=== PATIENT | female | born 1990 | race Caucasian/White ===

== ENCOUNTER → 2016-11-09 | Outpatient (CLI) | payer BC ==
[~2016-11-09] MED LIST: ACET-1311 PO; OXYC1TAB3 PO; PEMB1INJ IV; POTA20TA13 PO; RXC5 PO
--- NOTE | 2016-11-09 16:17 | DIAGNOSTIC IMAGING REPORT ---
CT ABD/PELVIS IV AND ORAL CONT CLINICAL HISTORY: Adrenocortical carcinoma COMPARISON STUDY: 09/06/2016 TECHNIQUE: Following the IV administration of 80 mL of Optiray-320, CT scan of the abdomen and pelvis was performed from the lung bases to the proximal femurs. Images are reviewed in the axial, sagittal, and coronal planes. IV contrast was administered without complication. CT DOSE: FINDINGS: Lower chest: There is a new 5.6 mm left lower lobe pulmonary nodule. There is a 2.5 mm right lower lobe pulmonary nodule. Liver: No focal hepatic masses are visualized Gallbladder: Surgically absent Spleen: Normal in size and attenuation. Pancreas: Unremarkable. Adrenal glands: The right adrenal gland appears surgically absent. No left adrenal masses are visualized. Kidneys: The patient is status post an interval right nephrectomy. There is soft tissue at the resection bed, consistent with either postsurgical change or residual tumor. Follow-up will be necessary. Bowel: There are no transition zones indicate bowel obstruction. The appendix appears normal. There is no acute diverticulitis. Peritoneum: There is trace free pelvic fluid. There is no free air. Vasculature: The abdominal aorta is normal in course and caliber. Adenopathy: None. Pelvic viscera: There are bilateral ovarian follicles likely functional. Skeletal structures: No destructive osseous lesions are seen. IMPRESSION: 1. Interval development of small bilateral pulmonary nodules. Metastatic disease is the diagnosis of exclusion 2. Interval right nephrectomy with resection of the retroperitoneal tumor recurrence. There is soft tissue at the level of the tumor resection, consistent with either postsurgical change or recurrent/residual neoplasm. Close follow-up or a PET CT scan will be necessary to differentiate these 2 possibilities. Electronically signed by: Taras Armstrong M.D. 11/09/2016 4:15 PM Dictated Date/Time: 11/09/2016 4:01 PM
--- NOTE | 2016-11-09 20:56 | DIAGNOSTIC IMAGING REPORT ---
CT OF THE CHEST WITH IV CONTRAST CLINICAL HISTORY: Adrenocortical carcinoma. COMPARISON STUDY: Chest CT June 20, 2016. TECHNIQUE: Following IV administration of 80 mL of Optiray-320, helical axial images of the chest were obtained. Images were viewed in the axial, sagittal and coronal planes. IV contrast was administered without complication. CT DOSE: 566.19 mGy.cm FINDINGS: No enlarged axillary, mediastinal or hilar lymph nodes are present. A left sided [id number] is in place. The size of the heart is normal. There is no pericardial effusion. No consolidation is identified. The central airways are patent. Several pulmonary nodules are new since CT of June 20, 2016 and include a 5 mm left lower lobe nodule shown image 48 of 65, a 3 mm right lower lobe nodule shown image 42 and a 3 mm left lower lobe nodule shown image 33. A few additional smaller nodules are also new since prior exam. No suspicious osseous lesions are present. Post surgical findings within the right upper quadrant status post nephrectomy are present. There is soft tissue within the operative bed which is better depicted on the abdominal CT. IMPRESSION: 1. Interval development of several small pulmonary nodules since chest CT of June 20, 2016 which are suspicious for pulmonary metastases. 2. No thoracic lymphadenopathy. Electronically signed by: Carlo Alcazar M.D. 11/09/2016 8:54 PM Dictated Date/Time: 11/09/2016 4:06 PM
== END | disposition home or self-care (01) ==
LOC: C.CTS 15:36
PROVIDERS: ATTEND Internal Medicine Hematology & Oncology
DX: C74.01 Malignant neoplasm of cortex of right adrenal gland (principal)

== ENCOUNTER → 2017-01-14 | Outpatient (CLI) | payer BC ==
[~2017-01-14] MED LIST changes: +OPTIRAY 320 IV PRN
--- NOTE | 2017-01-14 13:27 | DIAGNOSTIC IMAGING REPORT ---
CT SCAN OF THE CHEST WITH IV CONTRAST CLINICAL HISTORY: Adrenocortical carcinoma. COMPARISON STUDY: Chest CT scans dated 11/09/2016 and 03/26/2016. Abdominal CT dated 11/09/2016. TECHNIQUE: Following the IV administration of 65 cc of Optiray 320, CT scan of the thorax was performed from the thoracic inlet to the upper abdomen. Images are reviewed in the axial, sagittal, and coronal planes. IV contrast was administered without complication. CT DOSE: 207.39 mGy.cm FINDINGS: Thyroid: Imaged portions of the thyroid gland are normal in size and attenuation. Thoracic aorta: The thoracic aorta is normal in caliber and demonstrates standard 3-vessel arch anatomy. No dissection is seen. A left subclavian central venous infusion port is in place. Pulmonary vasculature: The pulmonary trunk is normal in caliber. There are no filling defects identified in the central pulmonary vessels to indicate pulmonary embolus. Note that this examination was not protocoled for evaluation of the pulmonary arteries. Heart: The heart is normal in size and configuration, and without pericardial effusion. Lungs and pleural spaces: There is no airspace consolidation or pleural effusion. The trachea and central airways are clear. There are numerous (at least 15) pulmonary nodules. These have significantly increased in both size and number from 11/09/2016. The appearance is consistent with multifocal pulmonary metastatic disease. The largest lesion is seen at the left lung base on image #264 and measures 11 mm (previously measured 4 mm). Mediastinum: There is no mediastinal lymphadenopathy. Dunia: Clear. Axillae: There is no axillary lymphadenopathy. Upper abdomen: There is a new large mass lesion identified in the right lobe of the liver adjacent to the IVC, best seen on axial image #293. This measures 4.4 cm and is consistent with progression of disease. An additional smaller 1.8 cm lesion is seen immediately adjacent on image #274. This is also new from previous. Postoperative changes are partially seen along the right posterior margin of liver. The right kidney in the right adrenal gland are surgically absent. The left adrenal gland is normal as visualized. Skeletal structures: No lytic or blastic bony lesions are seen. IMPRESSION: 1. There has been overall progression of metastatic disease with an increase in both size and number of numerous pulmonary metastases as compared to the 11/09/2016 examination. 2. There are 2 new hepatic metastases identified in the right lobe measuring up to 4.4 cm. 3. There is no airspace consolidation or pleural effusion. 4. Additional findings as above. Electronically signed by: Liborio Joseph M.D. 01/14/2017 1:26 PM Dictated Date/Time: 01/14/2017 1:17 PM
== END | disposition home or self-care (01) ==
LOC: C.CTS 12:57
PROVIDERS: ATTEND Nurse Practitioner
DX: C74.01 Malignant neoplasm of cortex of right adrenal gland (principal); R07.9 Chest pain, unspecified; M54.9 Dorsalgia, unspecified; R91.8 Other nonspecific abnormal finding of lung field; C78.00 Secondary malignant neoplasm of unspecified lung; C78.7 Secondary malignant neoplasm of liver and intrahepatic bile duct

== ENCOUNTER → 2017-02-22 | Outpatient (CLI) | payer BC ==
[~2017-02-22] MED LIST changes: +DOCU-94 PO; +DRGTP25 TD; +ENOX120I SQ; +FNTTP25 TD; +FURO-85 PO; +POLY335019 PO; +SPIR25TA PO; +ZOLP5TAB PO
--- NOTE | 2017-02-22 16:15 | DIAGNOSTIC IMAGING REPORT ---
CHEST CT WITH CONTRAST CT DOSE: HISTORY: Adrenal cancer TECHNIQUE: Multiaxial CT images of the chest were performed following the intravenous administration of contrast. COMPARISON: Chest CT 01/14/2017. FINDINGS: The central airways are patent. No pleural effusions. No pneumothorax. Interval increase in size in the multiple bilateral pulmonary nodules. Dominant nodule within the left lower lobe measures 12 mm, previously measuring 9 mm. Slightly progressed in the anterior mediastinal nodularity. This now measures 11 mm in thickness, previously measuring 8 mm. This likely represents progressive metastatic disease. Hepatic metastatic lesions have also increased in size. The central pulmonary arteries are patent. Left subclavian Port-A-Cath terminates in the distal SVC. IMPRESSION: Interval progression of metastatic disease within the chest and abdomen as described above. Electronically signed by: Cruz Padilla M.D. 02/22/2017 4:13 PM Dictated Date/Time: 02/22/2017 4:02 PM
--- NOTE | 2017-02-22 16:22 | DIAGNOSTIC IMAGING REPORT ---
ABDOMEN AND PELVIS CT WITH IV AND ORAL CONTRAST CT DOSE: 600.35 mGy.cm HISTORY: Adrenal carcinoma ADRENAL CA. TECHNIQUE: Multiaxial CT images of the abdomen and pelvis were performed following the use of intravenous and oral contrast. COMPARISON STUDY: 11/09/2016 FINDINGS: Progressive basilar parenchymal nodularity. At the right base there are 3 pleural-based nodules maximum dimension is 6.6 mm. Left base shows somewhat progressive nodularity compared to prior. Several nodules are present measuring from 4 to 7 mm. Progressive hepatic metastatic disease. Several nodular present largest of which measures 7.3 x 7.2 cm. Right adrenal gland has been resected. There may be localized soft tissue within the adrenal bed as residual. Left kidney is unremarkable. Left adrenal shows no evidence for enlargement. Left kidney enhances uniformly. Spleen is unremarkable. The bowel pattern is considered nonobstructive. Findings of moderate wall thickening of loops of proximal to mid sigmoid and lesser extent small bowel left lower quadrant. IMPRESSION: 1. Progressive metastatic disease involving basilar pulmonary nodularity, liver, and possibly bowel. 2. No evidence for an obstructive bowel pattern. Electronically signed by: Bao Ríos M.D. 02/22/2017 4:20 PM Dictated Date/Time: 02/22/2017 4:08 PM
== END | disposition home or self-care (01) ==
LOC: C.CTS 14:28
PROVIDERS: ATTEND Internal Medicine Hematology & Oncology
DX: C74.01 Malignant neoplasm of cortex of right adrenal gland (principal)

== ENCOUNTER → 2017-03-12 | Outpatient (CLI) | payer BC ==
[~2017-03-12] MED LIST changes: -OPTIRAY 320 IV PRN
--- NOTE | 2017-03-12 12:33 | DIAGNOSTIC IMAGING REPORT ---
Study: Cardiac blood pool imaging TECHNIQUE: This examination is acquired following the administration of 29.5 mCi of technetium 99m UltraTag. Ejection fraction evaluation was performed. FINDINGS: Ejection fraction is calculated at 75%. Wall motion contractility is unremarkable. There is no paradoxical wall motion. IMPRESSION: Normal study. Ejection fraction 75%. No wall motion abnormalities Electronically signed by: Bao Ríos M.D. 03/12/2017 12:31 PM Dictated Date/Time: 03/12/2017 12:28 PM
== END | disposition home or self-care (01) ==
LOC: C.NUCL 10:04
PROVIDERS: ATTEND Nurse Practitioner Family
DX: C74.01 Malignant neoplasm of cortex of right adrenal gland (principal)

== ENCOUNTER 2017-05-06 13:12 | Observation (INO) | payer BC ==
[~2017-05-06] VITALS: Ht 167.6 cm; Wt 80.4 kg
[~2017-05-06 13:12] MED LIST changes: -DOCU-94 PO; -DRGTP25 TD; -ENOX120I SQ; -FNTTP25 TD; -FURO-85 PO; -OXYC1TAB3 PO; -PEMB1INJ IV; -POLY335019 PO; -POTA20TA13 PO; -SPIR25TA PO; -ZOLP5TAB PO
[2017-05-06] MEDS ORDERED: ONDANSETRON INJ 2 MG/ML 2 ML VIAL IV STA (14:37)
[2017-05-06] MEDS ORDERED: SODIUM CHLORIDE 0.9% 1000ML 1,000 ML IV STA (14:37)
[2017-05-06] MEDS ORDERED: FENTANYL CITRATE INJ 50 MCG/1 ML 2 ML VIAL IV STA (14:37)
[2017-05-06] MEDS ORDERED: DiphenhydrAMINE HCL 50 MG/ML VIAL IV STA (14:58)
[2017-05-06] MEDS ORDERED: PROCHLORPERAZINE 5 MG/ML 2 ML VIAL IV STA (14:58)
--- NOTE | 2017-05-06 15:53 | DIAGNOSTIC IMAGING REPORT ---
HEAD CT NONCONTRAST CT DOSE: 638.56 mGycm HISTORY: Mental status change MCCORMACK, Vomiting, stage 4 adrenal CA TECHNIQUE: Multiaxial CT images of the head were performed without the use of intravenous contrast. Comparison: None. Findings: The paranasal sinuses and mastoid air cells are clear. The calvarium and skull base are intact. The ventricles and sulci are within normal limits. There is no mass, hematoma, midline shift, or acute infarct. Impression: No acute intracranial abnormality. Electronically signed by: Bao Ríos M.D. 05/06/2017 3:52 PM Dictated Date/Time: 05/06/2017 3:52 PM
[2017-05-06 16:06] LABS: URINE APPEARANCE CLEAR (CLEAR); URINE BILIRUBIN NEG (NEG); URINE COLOR YELLOW; URINE EPITHELIAL CELL AUTO >30 /lpf (0-5); URINE NITRITE NEG (NEG); URINE SPECIFIC GRAVITY 1.022 (1.000-1.030); UROBILINOGEN NEG (NEG); ZZUR CULT IF INDIC CLEAN CATCH NO
--- NOTE | 2017-05-06 16:07 | EMERGENCY ROOM VISIT NOTE ---
History Report prepared by Doug: Freddy Carter Under the Supervision of: Dr. Nickie Spencer M.D. First contact with patient: 14:37 Chief Complaint: HEADACHE Stated Complaint: MCCORMACK, N,V,D, History of Present Illness The patient is a 26 year old female who presents to the Emergency Room with complaints of a constant headache since last week. She rates her discomfort as a 5/10 in severity. She reports that she went to the [place] a week ago and started to feel a headache and swelling to her legs bilaterally. The patient reports that she has felt bruising in her feet and pain in her thighs since. She states that she has been experiencing nausea, vomiting, and diarrhea today. The patient states that she has been going through chemotherapy for a year for her stage four [address]. Singh and her third cycle is this week. She also states that she sees a specialist in [place].The patient states that she is worried about an adrenal crisis because the doctor is worried that they took off her steroids too quick. She reports that she was doing a clinical trial and the medication she was given is hard on her adrenal system. She states that they took her off steroids two months ago and denies being on steroids or the clinical trial at the moment. The patient admits that she typically takes Zofran for nausea and states that it helps alleviate her symptom. She reports that she hasn't taken any recently because it causes constipation. The patient denies taking medication for pain, fever, being sensitive to light, any previous similar headaches, dysphasia, confusion, weakness in one leg and arm, and facial droop. Source of History: patient Onset: a week ago Position: head Symptom Intensity: 5/10 Timing: constant Associated Symptoms: + nausea, + vomiting, + diarrhea, No fevers, No weakness Review of Systems See HPI for pertinent positives & negatives. A total of 10 systems reviewed and were otherwise negative. Past Medical & Surgical Medical Problems: (1) Adrenal carcinoma (2) Adrenal mass, right (3) Heart murmur (4) Right flank pain (5) Symptomatic anemia (6) [place] Teeth Removal Family History Diabetes mellitus FH: heart disease Social History Smoking Status: Never Smoker Alcohol Use: occasionally Drug Use: none Marital Status: , in relationship Housing Status: lives with family Occupation Status: employed Current/Historical Medications No Active Prescriptions or Reported Meds Allergies Coded Allergies: Ibuprofen (Verified Allergy, Intermediate, LIPS SWELL, HIVES, 09/06/16) Physical Exam Vital Signs Date Time Temp Pulse Resp B/P (MAP) Pulse Ox O2 Delivery O2 Flow Rate FiO2 05/06/17 18:20 93 16 97 Room Air 05/06/17 16:52 78 16 126/85 97 Room Air 05/06/17 15:41 72 18 98 Room Air 05/06/17 15:28 84 05/06/17 14:10 81 16 130/87 99 Room Air 05/06/17 13:26 36.7 90 22 132/89 99 Room Air Physical Exam Vital signs reviewed. General: No Meningeal signs. ill-appearing 26 year old female, in no significant distress. HEENT: No scleral icterus, PERRLA, neck supple. Atraumatic. Cardiovascular: Regular rate and rhythm, no extra sounds. Pulmonary: Clear to auscultation bilaterally, normal work of breathing. Abdomen: Soft, nontender, nondistended, positive bowel sounds. Musculoskeletal: Atraumatic, no peripheral edema. Neurologic: Patient awake alert and oriented x 3, full strength in all 4 extremities. Cranial nerves 2 through 12 grossly intact. Rectal: small external hemorrhoid, heme neg stool Skin: Warm, dry, no rash Medical Decision & Procedures ER Provider Diagnostic Interpretation: Radiology results as stated below per my review and radiologist interpretation: HEAD CT NONCONTRAST CT DOSE: 638.56 mGycm HISTORY: Mental status change MCCORMACK, Vomiting, stage 4 adrenal CA TECHNIQUE: Multiaxial CT images of the head were performed without the use of intravenous contrast. Comparison: None. Findings: The paranasal sinuses and mastoid air cells are clear. The calvarium and skull base are intact. The ventricles and sulci are within normal limits. There is no mass, hematoma, midline shift, or acute infarct. Impression: No acute intracranial abnormality. Electronically signed by: Bao Ríos M.D. 05/06/2017 3:52 PM Dictated Date/Time: 05/06/2017 3:52 PM BILATERAL LOWER EXTREMITY VENOUS DOPPLER CLINICAL HISTORY: Bilateral lower extremity edema. COMPARISON STUDY: No previous studies for comparison. TECHNIQUE: Sonography of the deep venous system of the bilateral lower extremities was performed. Compression and augmentation were evaluated. FINDINGS: The bilateral common femoral, superficial femoral and popliteal veins were compressible. Augmentation was normal. Flow was shown within the deep calf vessels. IMPRESSION: No evidence of deep venous thrombus within the bilateral lower extremities. Electronically signed by: Carlo Alcazar M.D. 05/06/2017 4:55 PM Dictated Date/Time: 05/06/2017 4:54 PM Laboratory Results Test 05/06/17 14:37 05/06/17 15:15 05/06/17 17:40 Urine Test NEG (NEG) Acanthocytes Urine Color YELLOW Urine Appearance CLEAR (CLEAR) Urine pH 7.0 (4.5-7.5) Urine Specific Steele 1.022 (1.000-1.030) Urine Protein 3+ (NEG) Urine Glucose (UA) NEG (NEG) Urine Ketones NEG (NEG) Urine Occult Blood 1+ (NEG) Urine Nitrite NEG (NEG) Urine Bilirubin NEG (NEG) Urine Urobilinogen NEG (NEG) Urine Leukocyte Esterase NEG (NEG) Urine WBC (Auto) 1-5 /hpf (0-5) Urine RBC (Auto) 0-4 /hpf (0-4) Urine Hyaline Casts (Auto) 5-10 /lpf (0-5) Urine Epithelial Cells (Auto) >30 /lpf (0-5) Urine Bacteria (Auto) NEG (NEG) Urine Renal Epithelial Cells 0-5 /lpf (0-5) Iron Level 28 mcg/dl (35-150) Total Iron Binding Capacity 322 mcg/dl (250-450) Transferrin 256 mg/dl (200-360) Transferrin % Saturation 8 % (15-50) Ferritin 17.9 ng/ml (8.0-388.0) Total Bilirubin 0.3 mg/dl (0.2-1) Direct Bilirubin < 0.1 mg/dl (0-0.2) Aspartate Amino Transf (AST/SGOT) 40 U/L (15-37) Alanine Aminotransferase (ALT/SGPT) 31 U/L (12-78) Alkaline Phosphatase 141 U/L (45-117) Total Protein 6.3 gm/dl (6.4-8.2) Albumin 2.7 gm/dl (3.4-5.0) Neutrophils % (Manual) 74.0 % Lymphocytes % (Manual) 21.7 % Monocytes % (Manual) 4.3 % Neutrophils # (Manual) 4.55 K/uL (1.4-6.5) Total Absolute Neutrophils 4.55 K/uL (1.4-6.5) Lymphocytes # (Manual) 1.33 K/uL (1.2-3.4) Total Absolute Lymphocytes 1.33 K/uL (1.2-3.4) Monocytes # (Manual) 0.26 K/uL (0.11-0.59) Microcytosis PRESENT Absolute Reticulocyte Count 0.07 10^6/uL (0.02-0.10) Percent Reticulocyte Count 2.2 % (0.5-2.0) Laboratory results per my review. Medications Administered Medications (Trade) Dose Ordered Sig/Karlos Route Start Time Stop Time Status Last Admin Dose Admin Sodium Chloride 1,000 ml @ 999 mls/hr Q1H1M STAT IV 05/06/17 14:37 05/06/17 15:37 DC 05/06/17 15:21 999 MLS/HR Fentanyl Citrate (Fentanyl Inj) 50 mcg NOW STAT IV 05/06/17 14:37 05/06/17 14:40 DC 05/06/17 15:19 50 MCG Prochlorperazine Edisylate (Compazine Inj) 10 mg NOW STAT IV 05/06/17 14:58 05/06/17 14:59 DC 05/06/17 15:20 10 MG Diphenhydramine HCl (Benadryl Inj) 25 mg NOW STAT IV 05/06/17 14:58 05/06/17 14:59 DC 05/06/17 15:18 25 MG Acetaminophen (Tylenol Tab) 650 mg Q4H PRN PO 05/06/17 18:45 06/05/17 18:44 05/07/17 08:18 650 MG ED Course 1450: Past medical records reviewed. The patient was evaluated in room A10. A complete history and physical examination was performed. 1437: Fentanyl Injection 50 mcg IV, Sodium Chloride 1000 ml @ 999 mls/hr IV. 1458: Benadryl Injection 25 mg IV, Compazine Injection 10 mg IV. 1739: I performed a rectal exam on the patient 1744: I discussed the patient's case with Dr. Muñoz, [facility] Hospitalist. He understands the patient's conditions and agrees to accept the patient. The patient will be further evaluated. I reevaluated the patient and she is resting comfortably. I discussed her results and treatment plan and she agrees to admission. The patient will be further evaluated. Medical Decision The differential diagnosis includes but is not limited to: Headache: Intracranial hemorrhage, intracranial mass, migraine headache, tension headache , sinusitis, meningitis, chemotherapeutic effect, dehydration Medication Reconciliation: I attest that I have personally reviewed the patient' s current medication list. Blood Pressure Screening: Patient was found to have normal blood pressure on screening and does not require follow-up. This pt was evaluated and appeared to be chronically ill, but in no distress. PE is significant for BLE edema. Lab work reveals a significant anemia. This was ordered to be repeated, type and cross for 2 units to HOLD. Dopplers of BLE are negative for DVT. Head CT is negative. Pt did receive IVF, benadryl, fentanyl and compazine with some improvement in symptoms. Repeat H/H is improved without any transfusion. Pt case was d/w the hospitalist for further management. Pt and are aware of the plan and agree. Consults Time Called: 1743 Consulting Physician: Dr. Muñoz, [facility] Hospitalist Returned Call: [phone] I discussed the patient's case with Dr. Muñoz, [facility] Hospitalist. He understands the patient's conditions and agrees to accept the patient. The patient will be further evaluated. Impression Primary Impression: Headache Additional Impressions: Anemia Metastatic cancer Scribe Attestation The scribe's documentation has been prepared under my direction and personally reviewed by me in its entirety. I confirm that the note above accurately reflects all work, treatment, procedures, and medical decision making performed by me. Departure Information Dispostion Being Evaluated By Hospitalist (Dr. Muñoz) Prescriptions No Active Prescriptions or Reported Meds Referrals RV. Mcmahon MD (PCP) Patient Instructions My [facility] Problem Qualifiers
[2017-05-06 16:09] LABS: MANUAL MICROSCOPIC REQUIRED? NO; REVIEW REQ? YES
[2017-05-06 16:28] LABS: ALT/SGPT 31 U/L (12-78); AST/SGOT 40 U/L (15-37); BLOOD UREA NITROGEN 11 mg/dl (7-18); BUN/CREATININE RATIO 11.9 (10-20); CALCIUM 8.5 mg/dl (8.5-10.1); CARBON DIOXIDE 26 mmol/L (21-32); CHLORIDE 109 mmol/L (98-107); CREATININE 0.96 mg/dl (0.60-1.20); GLUCOSE 81 mg/dl (70-99); POTASSIUM 3.3 mmol/L (3.5-5.1); SODIUM 143 mmol/L (136-145)
[2017-05-06 16:31] LABS: ALKALINE PHOSPHATASE 141 U/L (45-117)
[2017-05-06 16:40] LABS: COMPLETE YES
--- NOTE | 2017-05-06 16:56 | DIAGNOSTIC IMAGING REPORT ---
BILATERAL LOWER EXTREMITY VENOUS DOPPLER CLINICAL HISTORY: Bilateral lower extremity edema. COMPARISON STUDY: No previous studies for comparison. TECHNIQUE: Sonography of the deep venous system of the bilateral lower extremities was performed. Compression and augmentation were evaluated. FINDINGS: The bilateral common femoral, superficial femoral and popliteal veins were compressible. Augmentation was normal. Flow was shown within the deep calf vessels. IMPRESSION: No evidence of deep venous thrombus within the bilateral lower extremities. Electronically signed by: Carlo Alcazar M.D. 05/06/2017 4:55 PM Dictated Date/Time: 05/06/2017 4:54 PM
[2017-05-06 18:25] LABS: HEMATOCRIT 25.5 % (37-47)
[2017-05-06] MEDS ORDERED: ACETAMINOPHEN 325 MG TAB PO PRN (18:45)
[2017-05-06] MEDS ORDERED: ALUMINUM/MAGNESIUM/SIMETH (MAALOX MAX) 30 ML UDC PO PRN (18:45)
[2017-05-06] MEDS ORDERED: MAGNESIUM HYDROXIDE SUSP 30 ML UDC PO PRN (18:45)
[2017-05-06] MEDS ORDERED: ONDANSETRON INJ 2 MG/ML 2 ML VIAL IV PRN (18:45)
[2017-05-06] MEDS ORDERED: POLYETHYLENE (MIRALAX) 17 GM PACK PO PRN (18:45)
[2017-05-06] MEDS ORDERED: IV FLUIDS COMPLETED PRN (19:15)
[2017-05-06] MEDS ORDERED: POTASSIUM CHLORIDE 10 MEQ TABCR PO SCH (19:30)
[2017-05-06 19:32] LABS: FERRITIN 17.9 ng/ml (8.0-388.0)
--- NOTE | 2017-05-06 19:32 | History and Physical ---
History & Physical Date & Time of Service: May 06, 2017 at 19:04 Chief Complaint: Mccormack,N,V,D Primary Care Physician: RV. 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 The patient states she has been having intermittent, sharp headaches over the last week, which is unusual for her. She rates this discomfort as a 5/10. She has also noted bilateral leg swelling over the last week, although this has been improving the last few days and seems to have resolved today. The patient states she has felt nauseous for the last 3 days, and this morning she developed vomiting and diarrhea. She denies any hematemesis, hematochezia and melena. She does complain of feeling weak and fatigued, and has noticed more palpitations than normal. The patient has been undergoing chemotherapy with Dr. Jenkins for the last year, and her next dose is due this week. The patient denies fevers, chills, sweats, chest pain, claudication, cough, wheezing, shortness of breath, abdominal pain, dysuria, hematuria, urinary retention, paralysis, numbness and tingling. Past Medical/Surgical History Medical Problems: (1) Adrenal carcinoma Status: Chronic (2) Adrenal mass, right Status: Chronic (3) Heart murmur Status: Resolved (4) Prosser Teeth Removal Status: Resolved S/p right nephrectomy September 18 2016 Anxiety Family History Breast cancer Diabetes mellitus FH: heart disease Social History Smoking Status: Never Smoker Smokeless Tobacco Use: No Alcohol Use: none Drug Use: none Marital Status: , in relationship Housing status: lives with family Occupational Status: employed Immunizations History of Influenza Vaccine: Yes Influenza Vaccine Date: Oct 27, 2015 History of Tetanus Vaccine?: Yes Tetanus Immunization Date: Jan 25, 2013 History of Pneumococcal: No History of Hepatitis B Vaccine: No Allergies Coded Allergies: Ibuprofen (Verified Allergy, Intermediate, LIPS SWELL, HIVES, 09/06/16) Home Medications No Active Prescriptions or Reported Meds Review of Systems Constitutional: + weakness, + fatigue, No fever, No chills, No sweats Eyes: No worsening of vision, No eye pain, No diplopia ENT: No hearing loss, No sore throat, No trouble swallowing Respiratory: No cough, No wheezing, No shortness of breath Cardiovascular: + palpitations, No chest pain, No claudication Abdomen: + nausea, + vomiting, + diarrhea, No pain, No GI bleeding Musculoskeletal: + swelling (lower leg edema, resolved), No joint pain, No muscle pain, No calf pain Genitourinary - Female: No dysuria, No urinary retention, No hematuria Neurologic: No paralysis, No weakness, No numbness/tingling Integumentary: No rash, No itch, No color change Physical Exam Vital Signs Date Time Temp Pulse Resp B/P (MAP) Pulse Ox O2 Delivery O2 Flow Rate FiO2 05/06/17 18:20 93 16 97 Room Air 05/06/17 16:52 78 16 126/85 97 Room Air 05/06/17 15:41 72 18 98 Room Air 05/06/17 15:28 84 05/06/17 14:10 81 16 130/87 99 Room Air 05/06/17 13:26 36.7 90 22 132/89 99 Room Air General Appearance: WD/WN, no apparent distress Head: normocephalic, atraumatic Eyes: normal inspection, PERRL, EOMI ENT: normal ENT inspection, hearing grossly normal, pharynx normal Neck: supple, no JVD, trachea midline Respiratory/Chest: lungs clear, normal breath sounds, no respiratory distress Cardiovascular: regular rate, rhythm, no gallop, no murmur Abdomen/GI: normal bowel sounds, non tender, soft Extremities/Musculoskelatal: normal inspection, no calf tenderness, no pedal edema Neurologic/Psych: alert, normal mood/affect, oriented x 3 Skin: normal color, warm/dry, no rash Diagnostics Laboratory Results Results Past 24 Hours Test 05/06/17 14:37 05/06/17 15:15 05/06/17 17:40 05/06/17 18:43 Range/Units Urine Test NEG NEG White Blood Count 8.09 4.8-10.8 K/uL Red Blood Count 2.01 4.2-5.4 M/uL Hemoglobin 5.1 8.2 12.0-16.0 g/dL Hematocrit 15.7 25.5 37-47 % Mean Corpuscular Volume 78.1 80-100 fL Mean Corpuscular Hemoglobin 25.4 25-34 pg Mean Corpuscular Hemoglobin Concent 32.5 32-36 g/dl Platelet Count 356 130-400 K/uL Mean Platelet Volume 8.5 7.4-10.4 fL Neutrophils (%) (Auto) 63.3 % Lymphocytes (%) (Auto) 22.4 % Monocytes (%) (Auto) 13.0 % Eosinophils (%) (Auto) 0.9 % Basophils (%) (Auto) 0.2 % Neutrophils # (Auto) 5.12 1.4-6.5 K/uL Lymphocytes # (Auto) 1.81 1.2-3.4 K/uL Monocytes # (Auto) 1.05 0.11-0.59 K/uL Eosinophils # (Auto) 0.07 0-0.5 K/uL Basophils # (Auto) 0.02 0-0.2 K/uL RDW Standard Deviation 59.4 36.4-46.3 fL RDW Coefficient of Variation 20.5 11.5-14.5 % Immature Granulocyte % (Auto) 0.2 % Immature Granulocyte # (Auto) 0.02 0.00-0.02 K/uL Ovalocytes 1+ Acanthocytes 1+ Urine Color YELLOW Urine Appearance CLEAR CLEAR Urine pH 7.0 4.5-7.5 Urine Specific [place] 1.022 1.000-1.030 Urine Protein 3+ NEG Urine Glucose (UA) NEG NEG Urine Ketones NEG NEG Urine Occult Blood 1+ NEG Urine Nitrite NEG NEG Urine Bilirubin NEG NEG Urine Urobilinogen NEG NEG Urine Leukocyte Esterase NEG NEG Urine WBC (Auto) 1-5 0-5 /hpf Urine RBC (Auto) 0-4 0-4 /hpf Urine Hyaline Casts (Auto) 5-10 0-5 /lpf Urine Epithelial Cells (Auto) >30 0-5 /lpf Urine Bacteria (Auto) NEG NEG Urine Renal Epithelial Cells 0-5 0-5 /lpf Sodium Level 143 136-145 mmol/L Potassium Level 3.3 3.5-5.1 mmol/L Chloride Level 109 98-107 mmol/L Carbon Dioxide Level 26 21-32 mmol/L Anion Gap 8.0 3-11 mmol/L Blood Urea Nitrogen 11 7-18 mg/dl Creatinine 0.96 0.60-1.20 mg/dl Est Creatinine Clear Calc Drug Dose 94.8 ml/min Estimated GFR () 94.6 Estimated GFR (Non- 81.6 BUN/Creatinine Ratio 11.9 10-20 Random Glucose 81 70-99 mg/dl Calcium Level 8.5 8.5-10.1 mg/dl Total Bilirubin 0.3 0.2-1 mg/dl Direct Bilirubin < 0.1 0-0.2 mg/dl Aspartate Amino Transf (AST/SGOT) 40 15-37 U/L Alanine Aminotransferase (ALT/SGPT) 31 12-78 U/L Alkaline Phosphatase 141 45-117 U/L Total Protein 6.3 6.4-8.2 gm/dl Albumin 2.7 3.4-5.0 gm/dl Transferrin % Saturation 15-50 % Diagnostic Radiology Reviewed the following studies and agree with interpretation as follows: Patient Name: ROXI KNAPP Unit Number: [id number] Dictated: 05/06/171551 Transcribed: 05/06/171551 MS Printed Date/Time: [~ rep prt dt]/[~ rep prt tm] [~ rep ct labl] - [~ rep ct ivnm] [facility] [place] [address] Dictated: 05/06/171551 Transcribed: 05/06/17 155 MS Printed Date/Time: [~ rep prt dt]/[~ rep prt tm] [~ rep ct labl] - [~ rep ct ivnm] Patient: ROXI KNAPP Address1: [address] [place] [address] Rec: [id number] Address2: Acct ID: [id number] [facility] Zip: [place] [address] Date: 1990 Sex: F Room/Bed: Ref Phy: RV. Mcmahon MD SC: PEEWEE Att Phy: Report #: [id number] Vikki Phy: RV. Mcmahon MD Test: HWO Admit Phy: Data Security Administrator: ELAN Interpreting Phy: Bao Ríos M.D. Diagnosis: MCCORMACK,N,V,D Ordering Phy: Nickie Spencer M.D. Service Date: 05/06/17 Admit Date: 05/06/17 MNE: [id number] CONF: DICTATED BY: Bao Ríos M.D.]] CC: RV. Mcmahon MD Flickinger, Bridget B., M.D. Endcc: [~ rep ct add3]] HEAD CT NONCONTRAST CT DOSE: 638.56 mGycm HISTORY: Mental status change MCCORMACK, Vomiting, stage 4 adrenal CA TECHNIQUE: Multiaxial CT images of the head were performed without the use of intravenous contrast. Comparison: None. Findings: The paranasal sinuses and mastoid air cells are clear. The calvarium and skull base are intact. The ventricles and sulci are within normal limits. There is no mass, hematoma, midline shift, or acute infarct. Impression: No acute intracranial abnormality. Electronically signed by: Bao Ríos M.D. 05/06/2017 3:52 PM Dictated Date/Time: 05/06/2017 3:52 PM The status of this report is Signed. Draft = Not yet reviewed or approved by Radiologist. Signed = Reviewed and approved by Radiologist. <AttendingPhy></AttendingPhy> <FamilyPhy>RV. Mcmahon MD</ FamilyPhy> <PrimaryPhy>RV. Mcmahon MD</PrimaryPhy> <UnitNumber> [id number]</UnitNumber> <VisitNumber>[id number]</VisitNumber> <PatientName> ROXI KNAPP</PatientName> <DateOfBirth>1990</DateOfBirth> <Location> C.[facility]</Location> <ServiceDate>05/06/17</ServiceDate> <MNE>ESINDI</MNE> < OrderingPhy>Nickie Spencer M.D.</OrderingPhy> <OrderingPhyMNE>f rep ord dr dolan</OrderingPhyMNE> <DictatingPhyMNE>f rep dict dr dolan</DictatingPhyMNE> < CCListMNE>f rep ct mne</CCListMNE> <AdmittingPhyMNE>f pt admit dr dolan</ AdmittingPhyMNE> <AttendingPhyMNE>f pt attend dr dolan</AttendingPhyMNE> <ConsultingPhyMNE>f pt consult dr dolan</ConsultingPhyMNE> <FamilyPhyMNE>f pt fam dr dolan</FamilyPhyMNE> <OtherPhyMNE>f pt other dr dolan</OtherPhyMNE> < PrimaryPhyMNE>f pt prim care dr dolan</PrimaryPhyMNE> <ReferringPhyMNE>f pt referring dr dolan</ReferringPhyMNE> Patient Name: ROXI KNAPP Unit Number: [id number] Dictated: 05/06/171653 Transcribed: 05/06/171653 Printed Date/Time: [~ rep prt dt]/[~ rep prt tm] [~ rep ct labl] - [~ rep ct ivnm] [facility] [place] [address] Dictated: 05/06/171653 Transcribed: 05/06/171653 Printed Date/Time: [~ rep prt dt]/[~ rep prt tm] [~ rep ct labl] - [~ rep ct ivnm] Patient: ROXI KNAPP Address1: [address] [place] [address] Rec: [id number] Address2: Acct ID: [id number] [facility] Zip: [place] [address] Date: 1990 Sex: F Room/Bed: Ref Phy: RV. Mcmahon MD SC: PEEWEE Att Phy: Report #: [id number] Vikki Phy: RV. Mcmahon MD Test: VDLEB Admit Phy: Data Security Administrator: MIRANDA Interpreting Phy: Carlo Alcazar MD Diagnosis: MCCORMACK,N,V,D Ordering Phy: Nickie Spencer M.D. Service Date: 05/06/17 Admit Date: 05/06/17 MNE: [id number] CONF: DICTATED BY: Carlo Alcazar MD]] CC: RV. Mcmahon MD Flickinger, Bridget B., M.D. Endcc: [~ rep ct add3]] BILATERAL LOWER EXTREMITY VENOUS DOPPLER CLINICAL HISTORY: Bilateral lower extremity edema. COMPARISON STUDY: No previous studies for comparison. TECHNIQUE: Sonography of the deep venous system of the bilateral lower extremities was performed. Compression and augmentation were evaluated. FINDINGS: The bilateral common femoral, superficial femoral and popliteal veins were compressible. Augmentation was normal. Flow was shown within the deep calf vessels. IMPRESSION: No evidence of deep venous thrombus within the bilateral lower extremities. Electronically signed by: Carlo Alcazar M.D. 05/06/2017 4:55 PM Dictated Date/Time: 05/06/2017 4:54 PM The status of this report is Signed. Draft = Not yet reviewed or approved by Radiologist. Signed = Reviewed and approved by Radiologist. <AttendingPhy></AttendingPhy> <FamilyPhy>RV. Mcmahon MD</ FamilyPhy> <PrimaryPhy>RV. Mcmahon MD</PrimaryPhy> <UnitNumber> [id number]</UnitNumber> <VisitNumber>[id number]</VisitNumber> <PatientName> ROXI KNAPP</PatientName> <DateOfBirth>1990</DateOfBirth> <Location> [facility]</Location> <ServiceDate>05/06/17</ServiceDate> <MNE>ESINDI</MNE> < OrderingPhy>Nickie Spencer M.D.</OrderingPhy> <OrderingPhyMNE>f rep ord dr dolan</OrderingPhyMNE> <DictatingPhyMNE>f rep dict dr dolan</DictatingPhyMNE> < CCListMNE>f rep ct jevone</CCListMNE> <AdmittingPhyMNE>f pt admit dr dolan</ AdmittingPhyMNE> <AttendingPhyMNE>f pt attend dr dolan</AttendingPhyMNE> <ConsultingPhyMNE>f pt consult dr dolan</ConsultingPhyMNE> <FamilyPhyMNE>f pt fam dr dolan</FamilyPhyMNE> <OtherPhyMNE>f pt other dr dolan</OtherPhyMNE> < PrimaryPhyMNE>f pt prim care dr dolan</PrimaryPhyMNE> <ReferringPhyMNE>f pt referring dr dolan</ReferringPhyMNE> Impression Assessment and Plan 26 y/o female with a history of 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 Patient afebrile, VSS upon arrival to ED. Initial hemoglobin was 5.1 , hematocrit 15.7, but repeat H&H 2.5 hours later showed hgb 8.2 and hematocrit 25.5. Head CT negative for acute disease. Bilateral lower extremity Doppler ultrasound negative for DVT. Symptomatic anemia -Admit to telemetry for observation -Check H&H q6h x 4 -Type and screen done in ED along with blood consent form -2 units initially ordered based off hgb of 5.1, but given repeat hgb was 8.2 before receiving blood, will hold off -Retic count and peripheral blood smear -Iron studies -Hold off GI consult for now given no obvious GI bleeding -EKG now -EKG q am and prn with chest pain Adrenal cancer stage IV s/p right nephrectomy (09/19)--progressive mets to liver and lungs per last CT scan February 2017 -Consult oncology as pt due for chemo. Pt follows with Dr. Jenkins GI prophylaxis -Maalox Max 15 mL PO q4h prn dyspepsia -Milk of magnesia 30 mL PO q6h prn constipation -Miralax 17 gm PO qd prn constipation -Zofran 4 mg IV q6h prn nausea DVT prophylaxis -Encourage ambulation -FABIANA terry and Carlos Code Status -Level I, FULL RESUSCITATION STATUS Attending Addendum: I have physically seen and examined this patient, have directed the physician assistants medical extremities, and agree with the H&P as noted above with the following exceptions: NONE The patient is awake, well-developed and adequately nourished, alert and oriented 3, normocephalic and atraumatic, lying in bed and in no acute distress. HEENT--PERRL, EOMI, mucous membranes and oropharynx dry. Neck--supple, no JVD or bruits, thyroid normal, trachea midline, no adenopathy. Heart--normal S1 and S2, no extra beats, no murmurs, rubs or gallops. Lungs--clear bilaterally with good air movement, no respiratory distress, no accessory muscle use. Abdomen--normal bowel sounds and soft, nontender and nondistended, no hernias or masses, no organomegaly. Extremities--no cyanosis, clubbing or edema. There are good distal pulses b/l. Dermatologic--normal skin turgor, normal color, warm and dry, no abnormal lymph nodes, no rash. Neurologic--cranial nerves II through XII grossly intact, motor and sensory examination normal. Rheumatologic--normal range of motion, nontender, muscles and joints. Psychiatric--normal affect. Assessment and Plan: 1. Symptomatic anemia--hemoglobin on arrival was 5.1, however, repeat for verification was 8.2. We will hold on transfusion at this time. Patient will be admitted to the telemetry unit for close monitoring. Check H&H every 6 hours. Order additional laboratories: Iron, TIBC, vitamin B-12, folic acid, reticulocyte count, peripheral smear. Order Hemoccults. Consult oncology Dr. Jenkins who manages her stage IV adrenal cancer. Level of Care Telemetry Resuscitation Status FULL RESUSCITATION VTE Prophylaxis VTE Risk Assessment Done? Y/N: Yes Risk Level: Moderate Given or contraindicated: T.E.D. Stockings, SCD's
[2017-05-06 20:00] VITALS: BP 121/81; PULSE 69; TEMP 36.6; O2SAT 99; Ht 167.6 cm; Wt 80.4 kg
[2017-05-06 23:31] VITALS: BP 113/73; PULSE 68; TEMP 36.8; O2SAT 96
[2017-05-06 23:33] LABS: HEMATOCRIT 25.2 % (37-47)
[2017-05-07] VITALS: O2SAT 99
[2017-05-07 03:55] VITALS: BP 113/68; PULSE 80; TEMP 36.9; O2SAT 94
[2017-05-07 04:00] VITALS: O2SAT 99
[2017-05-07 05:58] LABS: BASO % 0.6 %; BASO ABS # 0.03 K/uL (0-0.2); EOS % 0.8 %; HEMATOCRIT 26.2 % (37-47); IG% 0.4 %; LYMPH % 27.2 %; LYMPH ABS # 1.44 K/uL (1.2-3.4); MEAN CELL VOLUME 77.7 fL (80-100); MEAN CORPUSCULAR HEMOGLOBIN 24.9 pg (25-34); MEAN CORPUSCULAR HGB CONC 32.1 g/dl (32-36); MEAN PLATELET VOLUME 8.5 fL (7.4-10.4); MONO % 13.2 %; NEUT % 57.8 %; PLATELET COUNT 271 K/uL (130-400); RED BLOOD COUNT 3.37 M/uL (4.2-5.4)
[2017-05-07 06:33] LABS: BUN/CREATININE RATIO 9.5 (10-20); CREATININE 0.88 mg/dl (0.60-1.20); POTASSIUM 3.4 mmol/L (3.5-5.1)
[2017-05-07 06:45] LABS: ANISOCYTOSIS PRESENT; COMPLETE YES; OVALOCYTES 1+
[2017-05-07 07:38] VITALS: BP 119/73; PULSE 70; TEMP 36.9; O2SAT 97
[2017-05-07 11:21] LABS: COMPLETE YES; MEAN CELL VOLUME 78.2 fL (80-100); MEAN CORPUSCULAR HEMOGLOBIN 25.2 pg (25-34); MEAN CORPUSCULAR HGB CONC 32.2 g/dl (32-36); MEAN PLATELET VOLUME 8.4 fL (7.4-10.4); PLATELET COUNT 251 K/uL (130-400); RED BLOOD COUNT 3.26 M/uL (4.2-5.4); WHITE BLOOD COUNT 6.15 K/uL (4.8-10.8)
[2017-05-07 11:22] LABS: ANISOCYTOSIS PRESENT; LYMPH ABS # 1.33 K/uL (1.2-3.4); LYMPHOCYTE % 21.7 %; MICROCYTOSIS PRESENT; OVALOCYTES 1+
[2017-05-07 11:35] LABS: HEMATOCRIT 29.4 % (37-47)
[2017-05-07 12:10] VITALS: BP 116/76; PULSE 67; TEMP 36.7; O2SAT 97
--- NOTE | 2017-05-07 12:16 | Oncology Consultation ---
Oncology/Heme Consultation Date of Consultation: May 07, 2017. Attending Physician: Jaguar Muñoz M.D. Reason for Consultation: Anemia Metastatic adrenocortical carcinoma History of Present Illness Ms. Granado is a 26 year old woman with a history of metastatic adrenocortical carcinoma. She's progressed through multiple regimens and is currently receiving triple-agent chemotherapy (Adriamycin, Carboplatin, and Etoposide). Her last cycle was 04/09-04/11 and she is due for her next this week. She presented with nausea, vomiting, and diarrhea. She was noted to have a hemoglobin of 5.1 on admission. However, her hemoglobin on repeat was 8.2 and has trended up since without any transfusion. The admission CBC was subsequently retracted due to contamination. This morning, her hemoglobin was 9.3, which is close to her baseline. She denies any GI bleeding, hematuria, vaginal bleeding, epistaxis, or large bruising. She did have bilateral pedal edema that is resolving. A lower extremity doppler was negative. A CT head also revealed no acute changes. Past Medical/Surgical History Medical Problems: (1) Adrenal mass, right Status: Acute (2) Anemia Status: Acute (3) Back pain Status: Acute (4) Fecal retention Status: Acute (5) Headache Status: Acute (6) Metastatic cancer Status: Acute (7) Metastatic cancer Status: Acute (8) Right sided abdominal pain Status: Acute Family History Breast cancer Diabetes mellitus FH: heart disease Social History Smoking Status: Never Smoker Smokeless Tobacco Use: No Alcohol Use: none Drug Use: none Marital Status: , in relationship Housing Status: lives with family Occupation Status: employed Allergies Coded Allergies: Ibuprofen (Verified Allergy, Intermediate, LIPS SWELL, HIVES, 09/06/16) Home Medications No Active Prescriptions or Reported Meds Current Inpatient Medications Current Inpatient Medications Medications (Trade) Dose Ordered Sig/Karlos Route Start Time Stop Time Status Last Admin Dose Admin Acetaminophen (Tylenol Tab) 650 mg Q4H PRN PO 05/06/17 18:45 06/05/17 18:44 05/07/17 08:18 650 MG Al Hydrox/Mg Hydrox/Simethicone (Maalox Max Susp) 15 ml Q4H PRN PO 05/06/17 18:45 06/05/17 18:44 Magnesium Hydroxide (Milk Of Magnesia Susp) 30 ml Q12H PRN PO 05/06/17 18:45 06/05/17 18:44 Ondansetron HCl (Zofran Inj) 4 mg Q6H PRN IV 05/06/17 18:45 06/05/17 18:44 Polyethylene (Miralax Powder Packet) 17 gm DAILY PRN PO 05/06/17 18:45 06/05/17 18:44 Miscellaneous (Iv Fluids Completed) 1 ea PRN PRN N/A 05/06/17 19:15 05/06/18 19:14 Heparin Sodium (Porcine) (Heparin 100 Unit/ml 5ml Flush) 5 ml PRN PRN IV 05/07/17 02:30 06/06/17 02:29 05/07/17 05:12 5 ML Review of Systems Constitutional: + weakness, + fatigue, No fever, No chills ENT: No unusual epistaxis Respiratory: No cough, No shortness of breath, No hemoptysis Cardiovascular: + edema, No chest pain Abdomen: + nausea, + vomiting, + diarrhea, No pain Musculoskeletal: No joint pain, No muscle pain Genitourinary - Female: No dysuria, No hematuria, No vaginal bleeding Hematologic / Lymphatic: No abnormal bleeding/bruising Integumentary: No rash, No bleeding Physical Exam Date Time Temp Pulse Resp B/P (MAP) Pulse Ox O2 Delivery O2 Flow Rate FiO2 05/07/17 08:00 Room Air 05/07/17 07:38 36.9 70 16 119/73 (88) 97 Room Air 05/07/17 04:00 99 Room Air 05/07/17 03:55 36.9 80 18 113/68 (83) 94 Room Air 05/07/17 00:00 99 Room Air 05/07/17 00:00 99 Room Air 05/06/17 23:31 36.8 68 16 113/73 (86) 96 Room Air 05/06/17 20:00 36.6 69 18 121/81 05/06/17 20:00 36.6 69 20 121/81 99 Room Air 05/06/17 19:20 83 20 125/82 98 Room Air 05/06/17 18:20 93 16 97 Room Air 05/06/17 16:52 78 16 126/85 97 Room Air 05/06/17 15:41 72 18 98 Room Air 7/3/17 15:28 84 05/06/17 14:10 81 16 130/87 99 Room Air 05/06/17 13:26 36.7 90 22 132/89 99 Room Air General Appearance: WD/WN, no apparent distress ENT: pharynx normal Respiratory/Chest: lungs clear Cardiovascular: regular rate, rhythm, no murmur Abdomen/GI: soft, + tenderness (chronically over her RUQ) Extremities/Musculoskelatal: no pedal edema Neurologic/Psych: no motor/sensory deficits, alert, oriented x 3 Skin: warm/dry, no rash Laboratory Results Last 24 Hours Test 05/06/17 14:37 05/06/17 15:15 05/06/17 17:40 05/06/17 23:20 Urine Test NEG White Blood Count K/uL 6.15 K/uL Red Blood Count M/uL 3.26 M/uL Hemoglobin g/dL 8.2 g/dL 8.1 g/dL Hematocrit % 25.5 % 25.2 % Mean Corpuscular Volume fL 78.2 fL Mean Corpuscular Hemoglobin pg 25.2 pg Mean Corpuscular Hemoglobin Concent g/dl 32.2 g/dl Platelet Count K/uL 251 K/uL Mean Platelet Volume fL 8.4 fL Neutrophils (%) (Auto) % Lymphocytes (%) (Auto) % Monocytes (%) (Auto) % Eosinophils (%) (Auto) % Basophils (%) (Auto) % Neutrophils # (Auto) K/uL Lymphocytes # (Auto) K/uL Monocytes # (Auto) K/uL Eosinophils # (Auto) K/uL Basophils # (Auto) K/uL RDW Standard Deviation fL 58.4 fL RDW Coefficient of Variation % 20.4 % Immature Granulocyte % (Auto) % Immature Granulocyte # (Auto) K/uL Ovalocytes 1+ Acanthocytes Urine Color YELLOW Urine Appearance CLEAR Urine pH 7.0 Urine Specific [place] 1.022 Urine Protein 3+ Urine Glucose (UA) NEG Urine Ketones NEG Urine Occult Blood 1+ Urine Nitrite NEG Urine Bilirubin NEG Urine Urobilinogen NEG Urine Leukocyte Esterase NEG Urine WBC (Auto) 1-5 /hpf Urine RBC (Auto) 0-4 /hpf Urine Hyaline Casts (Auto) 5-10 /lpf Urine Epithelial Cells (Auto) >30 /lpf Urine Bacteria (Auto) NEG Urine Renal Epithelial Cells 0-5 /lpf Sodium Level 143 mmol/L Potassium Level 3.3 mmol/L Chloride Level 109 mmol/L Carbon Dioxide Level 26 mmol/L Anion Gap 8.0 mmol/L Blood Urea Nitrogen 11 mg/dl Creatinine 0.96 mg/dl Est Creatinine Clear Calc Drug Dose 94.8 ml/min Estimated GFR () 94.6 Estimated GFR (Non- 81.6 BUN/Creatinine Ratio 11.9 Random Glucose 81 mg/dl Calcium Level 8.5 mg/dl Iron Level 28 mcg/dl Total Iron Binding Capacity 322 mcg/dl Transferrin 256 mg/dl Transferrin % Saturation 8 % Ferritin 17.9 ng/ml Total Bilirubin 0.3 mg/dl Direct Bilirubin < 0.1 mg/dl Aspartate Amino Transf (AST/SGOT) 40 U/L Alanine Aminotransferase (ALT/SGPT) 31 U/L Alkaline Phosphatase 141 U/L Total Protein 6.3 gm/dl Albumin 2.7 gm/dl Neutrophils % (Manual) 74.0 % Lymphocytes % (Manual) 21.7 % Monocytes % (Manual) 4.3 % Neutrophils # (Manual) 4.55 K/uL Total Absolute Neutrophils 4.55 K/uL Lymphocytes # (Manual) 1.33 K/uL Total Absolute Lymphocytes 1.33 K/uL Monocytes # (Manual) 0.26 K/uL Anisocytosis PRESENT Microcytosis PRESENT Absolute Reticulocyte Count 0.07 10^6/uL Percent Reticulocyte Count 2.2 % Test 05/07/17 05:30 05/07/17 11:24 White Blood Count 5.30 K/uL Red Blood Count 3.37 M/uL Hemoglobin 8.4 g/dL 9.3 g/dL Hematocrit 26.2 % 29.4 % Mean Corpuscular Volume 77.7 fL Mean Corpuscular Hemoglobin 24.9 pg Mean Corpuscular Hemoglobin Concent 32.1 g/dl Platelet Count 271 K/uL Mean Platelet Volume 8.5 fL Neutrophils (%) (Auto) 57.8 % Lymphocytes (%) (Auto) 27.2 % Monocytes (%) (Auto) 13.2 % Eosinophils (%) (Auto) 0.8 % Basophils (%) (Auto) 0.6 % Neutrophils # (Auto) 3.07 K/uL Lymphocytes # (Auto) 1.44 K/uL Monocytes # (Auto) 0.70 K/uL Eosinophils # (Auto) 0.04 K/uL Basophils # (Auto) 0.03 K/uL RDW Standard Deviation 58.0 fL RDW Coefficient of Variation 20.1 % Immature Granulocyte % (Auto) 0.4 % Immature Granulocyte # (Auto) 0.02 K/uL Anisocytosis PRESENT Ovalocytes 1+ Sodium Level 143 mmol/L Potassium Level 3.4 mmol/L Chloride Level 110 mmol/L Carbon Dioxide Level 26 mmol/L Anion Gap 7.0 mmol/L Blood Urea Nitrogen 8 mg/dl Creatinine 0.88 mg/dl Est Creatinine Clear Calc Drug Dose 103.6 ml/min Estimated GFR () 105.1 Estimated GFR (Non- 90.7 BUN/Creatinine Ratio 9.5 Random Glucose 80 mg/dl Calcium Level 8.0 mg/dl Assessment & Plan Ms. Granado presented with GI complaints that have since resolved. They may have been related to her chemotherapy or else to some other issue, such as a transient viral illness. Regardless, her symptoms are better today. A CBC on admission was erroneously reported as showing severe anemia. However, her counts have been stable to improved since. Her baseline is the 9-10 range, which is consistent with her chemotherapy history and chronic disease. She does not need chemo in the hospital. She is scheduled to resume tomorrow. If she is discharged today, she can keep that appointment. Otherwise, we can reschedule for next week.
--- NOTE | 2017-05-07 13:44 | Discharge Instructions ---
Discharge Instructions Date of Service May 07, 2017. Admission Reason for Admission: Symptomatic Anemia Discharge Discharge Diagnosis / Problem: Symptomatic Anemia Discharge Goals Goal(s): Improve function Activity Recommendations Activity Limitations: resume your previous activity . Instructions / Follow-Up Instructions / Follow-Up Primary care physician in 1 week Current Hospital Diet Patient's current hospital diet: Regular Diet Discharge Diet Recommended Diet: Regular Diet Pending Studies Studies pending at discharge: no Laboratory Results Last Resulted CBC 05/07/17 05:30 Red Blood Count 3.37, Mean Corpuscular Volume 77.7, Mean Corpuscular Hemoglobin 24.9, Mean Corpuscular Hemoglobin Concent 32.1, Mean Platelet Volume 8.5, Neutrophils (%) (Auto) 57.8, Lymphocytes (%) (Auto) 27.2, Monocytes (%) (Auto) 13.2, Eosinophils (%) (Auto) 0.8, Basophils (%) (Auto) 0.6, Neutrophils # (Auto ) 3.07, Lymphocytes # (Auto) 1.44, Monocytes # (Auto) 0.70, Eosinophils # (Auto ) 0.04, Basophils # (Auto) 0.03 05/07/17 11:24 Last Resulted BMP 05/07/17 05:30 Medical Emergencies . Who to Call and When: Medical Emergencies: If at any time you feel your situation is an emergency, please call 911 immediately. . Non-Emergent Contact Non-Emergency issues call your: Primary Care Provider . . "Provider Documentation" section prepared by Shaka Bloom. . VTE Core Measure Inpt VTE Proph given/why not?: Pillo Mims, MAE's
[2017-05-07 13:57] VITALS: BP 116/76; PULSE 67; TEMP 36.7; O2SAT 97
--- NOTE | 2017-05-07 18:59 | Discharge Summary ---
Discharge Summary Date of Service May 07, 2017. Discharge Summary Admission Date: May 06, 2017 at 18:52 Discharge Date: May 07, 2017 Discharge Disposition: Home Principal Diagnosis: symptomatic anemia Problems/Secondary Diagnoses: Lab error Immunizations: Have You Had Influenza Vaccine: Yes Influenza Vaccine Date: Oct 27, 2015 History of Tetanus Vaccine?: Yes Tetanus Immunization Date: Jan 25, 2013 History of Pneumococcal: No History of Hepatitis B Vaccine: No Consultations: Dr. Georges Michael Medication Reconciliation Medication Profile: No Active Prescriptions or Reported Meds Hospital Course (1) Adrenal carcinoma The patient presented with nausea vomiting and diarrhea. She is a 26-year-old with a history of metastatic adrenal cortical carcinoma. She is receiving active chemotherapy. In addition to her symptoms she also was discovered to have a hemoglobin of 5. This prompted her being placed in observation. A hemoglobin was repeated prior to transfusion and hemoglobin went to 9. Serial hemoglobins were followed and all in the same range. Initial hemoglobin was retracted as a lab error. She was seen in consultation by Dr. Georges Michael on hospital day #2 and she was deemed stable for discharge. Her gastrointestinal symptoms had resolved. She has chemotherapy scheduled for tomorrow and there are no contraindications for her to proceed with chemotherapy. If the patient prefers however she can call in rescheduled for next week. The above was discussed with the patient and her and they are in agreement with therapy as described. She was discharged to home in stable condition. (2) Symptomatic anemia Total Time Spent: Greater than 30 minutes This includes examination of the patient, discharge planning, medication reconciliation, and communication with other providers. Discharge Instructions Please refer to the electronic Patient Visit Report (Discharge Instructions) for additional information.
== END 2017-05-07 15:49 | disposition home or self-care (01) ==
LOC: C.EDB 13:13 → C.MED 18:52 → ENRESERV 19:28
PROVIDERS: ADMIT Hospitalist; ATTEND Hospitalist
DX: R51 Headache (principal); D64.9 Anemia, unspecified; R60.0 Localized edema; C78.7 Secondary malignant neoplasm of liver and intrahepatic bile duct; C78.00 Secondary malignant neoplasm of unspecified lung; Z85.528 Personal history of other malignant neoplasm of kidney; Z92.21 Personal history of antineoplastic chemotherapy; Z83.3 Family history of diabetes mellitus; Z82.49 Family history of ischemic heart disease and other diseases of the circulatory system; Z80.3 Family history of malignant neoplasm of breast; Z90.5 Acquired absence of kidney

== ENCOUNTER → 2017-05-31 | Outpatient (CLI) | payer BC ==
[~2017-05-31] MED LIST changes: -ACET-1311 PO; +OXYC1TAB3 PO; +PEMB1INJ IV; +POTA20TA13 PO; -RXC5 PO
--- NOTE | 2017-05-31 20:21 | DIAGNOSTIC IMAGING REPORT ---
ABDOMEN WITHOUT CONTRAST CLINICAL HISTORY: ADRENAL CANCER metastatic disease TECHNIQUE: Imaging was performed without IV contrast enhancement. COMPARISON STUDY: CT dated 02/22/2017 FINDINGS: Limited study due to considerable patient motion. There is suggestion of somewhat progressive basilar parenchymal nodularity area the liver metastatic disease is progressive. The largest right hepatic lobe lesion now measures 9.7 cm in maximum dimension. A posterior right metastatic deposit has increased to 4.3 cm with a prior dimension of 2.2 cm. A left hepatic lobe lesion has increased to 5.9 cm compared to a prior dimension of 3.7 cm. There is a superior periaortic nodule adjacent to the splenic hilum currently measuring 2.9 cm. Several additional perigastric nodes are present measuring up to 2.4 cm. Interval development of a peripancreatic versus pancreatic head lesion measuring 3 cm at maximum. The right kidney is surgically absent. Left kidney is generally uniform in appearance. The spleen is uniform. Osseous structures show no well-defined destructive or bone marrow replacing process. IMPRESSION: 1. Considerable progression of the patient's hepatic and upper abdominal metastatic disease, with progressive involvement of the liver, upper abdominal nodes, and pancreas. 2. Progression of the patient's basilar pulmonary nodularity. 3. Operative changes consistent with resection of the right kidney and right adrenal. 4. No evidence for bone involvement at the current time. The above report was generated using voice recognition software. It may contain grammatical, syntax or spelling errors. Electronically signed by: Bao Ríos M.D. 05/31/2017 8:19 PM Dictated Date/Time: 05/31/2017 8:11 PM
== END | disposition home or self-care (01) ==
LOC: C.MRI 18:31
PROVIDERS: ATTEND Internal Medicine Hematology & Oncology
DX: C74.01 Malignant neoplasm of cortex of right adrenal gland (principal); R91.8 Other nonspecific abnormal finding of lung field

== ENCOUNTER → 2017-07-09 | Outpatient (CLI) | payer BC ==
[~2017-07-09] MED LIST changes: +OPTIRAY 320 IV PRN
--- NOTE | 2017-07-09 13:30 | DIAGNOSTIC IMAGING REPORT ---
CT SCAN OF THE CHEST WITH IV CONTRAST CLINICAL HISTORY: Metastatic adrenocortical carcinoma. COMPARISON STUDY: Chest CT scans dated 02/22/2017 and 03/26/2016. TECHNIQUE: Following the IV administration of 92 cc of Optiray 320, CT scan of the thorax was performed from the thoracic inlet to the upper abdomen. Images are reviewed in the axial, sagittal, and coronal planes. IV contrast was administered without complication. FINDINGS: Thyroid: Imaged portions of the thyroid gland are normal in size and attenuation. Thoracic aorta: The thoracic aorta is normal in caliber and demonstrates standard 3-vessel arch anatomy. No dissection is seen. A left subclavian central venous infusion port is in place. Heart: The heart is normal in size and configuration, and without pericardial effusion. Abdomen recumbent normal in caliber. Lungs and pleural spaces: There is no airspace consolidation or pleural effusion. The trachea and central airways are clear. There are numerous (at least 20) pulmonary nodules. These have continued to increase in both size and number from 02/22/2017 and the appearance is consistent with multifocal pulmonary metastatic disease. The largest lesion is seen on the left is seen at the lung base on image #208 and measures 2.0 cm (previously measuring 1.3 cm). The largest lesion on the right is at the lung base on image #222. This measures 1.9 cm (previously measuring 0.6 cm). Mediastinum: A high right peritracheal julia lesion on image #52 is new from previous, measuring 1.9 x 1.6 cm. Dunia: Clear. Axillae: There is no axillary lymphadenopathy. Upper abdomen: Hepatic metastatic disease has progressed from previous. Skeletal structures: No lytic or blastic bony lesions are seen. IMPRESSION: 1. There has been overall progression of metastatic pulmonary disease as compared to the 02/22/2017 examination. 2. Hepatic metastatic disease has also progressed. 3. There is a new mediastinal julia lesion. 4. There is no airspace consolidation or pleural effusion. 5. Additional findings as above. Electronically signed by: Liborio Joseph M.D. 07/09/2017 1:29 PM Dictated Date/Time: 07/09/2017 1:21 PM
--- NOTE | 2017-07-09 14:00 | DIAGNOSTIC IMAGING REPORT ---
CT OF THE ABDOMEN AND PELVIS WITH CONTRAST CLINICAL HISTORY: Metastatic adrenocortical carcinoma. COMPARISON STUDY: CT of the abdomen and pelvis February 18, 2017 and MRI of the abdomen May 31, 2017. TECHNIQUE: Following IV administration of 92 mL of Optiray-320, axial images of the abdomen and pelvis were obtained from the lung bases to the proximal femurs. Images were reviewed in the axial, sagittal, and coronal planes. IV contrast was administered without complication. A dose lowering technique was utilized adhering to the principles of ALARA. Oral contrast was administered. CT DOSE: 566.25 mGy.cm FINDINGS: The chest CT will be reported separately. However, lower lung nodules visualized on this exam have increased in size since CT of February 22, 2017. Index right lower lobe nodule shown image 8 measures 1 cm. It previously measured 0.7 cm. Index left lower lobe nodule shown image 17 measures 1.5 cm. It previously measured 1.2 cm. Numerous hepatic masses have moderately increased in size since MRI of May 31, 2017 and markedly increase in size since CT of February 22, 2017. Dominant right hepatic lobe mass measures 10.4 x 10.3 cm. Mass effect upon the portal veins is noted. The vessels remain patent. It previously measured 9.5 x 8.9 cm on MRI of May 31, 2017. Right hepatic lobe metastasis shown image 23 measures 6.2 x 4.3 cm. It previously measured 4.7 x 3.8 cm. Lateral segment lesion measures 6.4 cm. It previously measured 5.4 cm. Numerous upper abdominal pathologic lymph nodes have increased in size. A peripancreatic node measures 4 cm. It previously measured 3.4 cm. An additional peripancreatic node along the pancreatic tail measures 2.6 x 3.3 cm. It previously measured 3.3 x 2.8 cm. The right kidney and right adrenal gland are surgically absent. Mild left hydronephrosis and hydroureter is noted with minimal periureteral infiltration. There is no evidence for a bowel obstruction. No suspicious osseous lesions are present. A few tiny upper omental nodules measuring up to 5 mm are new since prior exam. Peritoneal nodularity along the right upper quadrant suggests tumor implants. These have slightly increased in size. IMPRESSION: 1. Significant progression of metastatic disease since MRI of May 31, 2017. Moderate increase in size of large hepatic metastases and upper abdominal lymphadenopathy. Slight progression of omental/peritoneal carcinomatosis. 2. Mild left hydronephrosis with minimal perinephric and periureteral infiltration. No ureteral calculus identified. The findings are nonspecific and could be correlated with urinalysis. Electronically signed by: Carlo Alcazar M.D. 07/09/2017 1:59 PM Dictated Date/Time: 07/09/2017 1:35 PM
== END | disposition home or self-care (01) ==
LOC: C.CTS 12:29
PROVIDERS: ATTEND Internal Medicine Hematology & Oncology
DX: C74.01 Malignant neoplasm of cortex of right adrenal gland (principal); R59.0 Localized enlarged lymph nodes; C74.90 Malignant neoplasm of unspecified part of unspecified adrenal gland

== ENCOUNTER 2017-07-29 08:04 | Emergency (ER) | payer BC ==
[~2017-07-29] VITALS: Ht 170.2 cm; Wt 79.9 kg
[2017-07-29 08:07] VITALS: TEMP 37; Ht 170.2 cm; Wt 79.9 kg
[2017-07-29] MEDS ORDERED: SODIUM CHLORIDE 0.9% 1000ML 1,000 ML IV STA (08:13)
[2017-07-29 08:16] VITALS: O2SAT 99
[2017-07-29] MEDS ORDERED: OPTIRAY 320 IV PRN (08:45)
[2017-07-29] MEDS ORDERED: PEMB1INJ IV (09:02)
[2017-07-29 09:07] LABS: BASO % 0.1 %; BASO ABS # 0.01 K/uL (0-0.2); EOS % 0.6 %; HEMATOCRIT 28.7 % (37-47); IG% 0.6 %; LYMPH % 18.2 %; LYMPH ABS # 1.32 K/uL (1.2-3.4); MEAN CELL VOLUME 76.7 fL (80-100); MEAN CORPUSCULAR HEMOGLOBIN 22.7 pg (25-34); MEAN CORPUSCULAR HGB CONC 29.6 g/dl (32-36); MEAN PLATELET VOLUME 9.1 fL (7.4-10.4); MONO % 7.7 %; NEUT % 72.8 %; PLATELET COUNT 243 K/uL (130-400); RED BLOOD COUNT 3.74 M/uL (4.2-5.4); WHITE BLOOD COUNT 7.27 K/uL (4.8-10.8)
--- NOTE | 2017-07-29 09:20 | DIAGNOSTIC IMAGING REPORT ---
CHEST ONE VIEW PORTABLE HISTORY: 26 years-old Female right chest pain, adrenal CA acute right-sided chest pain. History of metastatic adrenal carcinoma. COMPARISON: Chest CT 07/09/2017, chest radiograph 08/21/2016 TECHNIQUE: Portable upright AP view of the chest FINDINGS: Left subclavian Bkicas-x-Wato catheter is again seen with distal tip terminating near the superior cavoatrial junction. Cardiac silhouette is upper limits of normal. No pneumothorax. There is mild blunting of the right costophrenic angle suggesting small effusion. Mild right hemidiaphragm elevation is noted. Ill-defined bibasilar opacities correlate with multiple pulmonary metastasis seen on comparison chest CT. The bones are grossly intact. Surgical clips are seen within the right upper abdomen. IMPRESSION: 1. Mild blunting of the right costophrenic angle suggests trace pleural effusion. 2. Ill-defined basilar opacities correlate with the previously noted multiple pulmonary metastasis seen on comparison chest CT 07/09/2017 The above report was generated using voice recognition software. It may contain grammatical, syntax or spelling errors. Electronically signed by: Jm Gallardo M.D. 07/29/2017 9:19 AM Dictated Date/Time: 07/29/2017 9:15 AM
[2017-07-29 09:23] LABS: PARTIAL THROMBOPLASTIN RATIO 1.1; PROTHROMBIN TIME (PATIENT) 10.7 SECONDS (9.0-12.0)
[2017-07-29 09:23] LABS: URINE APPEARANCE TURBID (CLEAR); URINE BILIRUBIN NEG (NEG); URINE COLOR YELLOW; URINE EPITHELIAL CELL AUTO >30 /lpf (0-5); URINE NITRITE NEG (NEG); URINE PH 7.5 (4.5-7.5); URINE SPECIFIC GRAVITY 1.017 (1.000-1.030); UROBILINOGEN NEG (NEG)
[2017-07-29 09:29] LABS: ALT/SGPT 34 U/L (12-78); ANISOCYTOSIS PRESENT; BLOOD UREA NITROGEN 12 mg/dl (7-18); CALCIUM 8.5 mg/dl (8.5-10.1); CARBON DIOXIDE 28 mmol/L (21-32); CHLORIDE 104 mmol/L (98-107); COMPLETE YES; CREATININE 0.96 mg/dl (0.60-1.20); GLUCOSE 82 mg/dl (70-99); HYPOCHROMIA PRESENT; MAGNESIUM 1.6 mg/dl (1.8-2.4); MICROCYTOSIS PRESENT; OVALOCYTES 1+; POTASSIUM 2.9 mmol/L (3.5-5.1); SODIUM 141 mmol/L (136-145); TOXIC GRANULATION 1+
[2017-07-29 09:32] LABS: MANUAL MICROSCOPIC REQUIRED? NO; REVIEW REQ? NO; SULFASALICYLIC ACID POS (NEG)
[2017-07-29 09:39] LABS: ALKALINE PHOSPHATASE 151 U/L (45-117); AST/SGOT 60 U/L (15-37); CKMB/CK RATIO 1.4 (0-3.0)
[2017-07-29] MEDS ORDERED: HYDROmorphone INJ 0.5 MG/0.5 ML SYR IV STA (09:47)
--- NOTE | 2017-07-29 10:01 | DIAGNOSTIC IMAGING REPORT ---
CHEST CTA for PULMONARY ARTERIES CT DOSE: 201.58 mGy.cm HISTORY: Right upper chest pain. Shoulder pain. Stage IV adrenal cancer. TECHNIQUE: Multiaxial CT images of the chest were performed following the intravenous administration of contrast to evaluate the pulmonary arteries. Maximal intensity projection images were also obtained. A dose lowering technique was utilized adhering to the principles of ALARA. COMPARISON STUDY: Chest CT 07/09/2017. FINDINGS: Normal caliber thoracic aorta with no evidence for dissection. No pericardial effusion. Trace right pleural effusion. No filling defects within the pulmonary arteries to suggest pulmonary embolus. The heart is normal in size. Left subclavian Port-A-Cath terminates in the superior cavoatrial junction. No suspicious lytic or blastic osseous lesions. Multiple large hepatic metastatic lesions are again noted. Dominant lesion measures 12 cm. This is similar in size compared to the prior study. Left upper abdominal lymphadenopathy/soft tissue mass is again noted. This measures 4.4 cm. The enlarged right peritracheal lymph node is not significant changed. No hilar lymphadenopathy. Multiple metastatic pleural and pulmonary nodules are again noted. These are not significant changed. Dominant nodule within the left lower lobe measures 1.9 cm. The central airways are patent. No pneumothorax. No new focal lung consolidations to suggest pneumonia. IMPRESSION: 1. No evidence for pulmonary embolus. 2. No significant change in the metastatic disease within the chest and abdomen as described above. 3. Trace right pleural effusion. Electronically signed by: Cruz Padilla M.D. 07/29/2017 10:00 AM Dictated Date/Time: 07/29/2017 9:51 AM
[2017-07-29] MEDS ORDERED: OXYC1TAB3 PO (12:39)
[2017-07-29] MEDS ORDERED: OXYCODONE HCL IR 5 MG TAB (IMMEDIATE RELEASE) PO STA (12:42)
[2017-07-29] MEDS ORDERED: POTASSIUM CHLORIDE 10 MEQ TABCR PO STA (12:42)
[2017-07-29] MEDS ORDERED: POTA20TA13 PO (12:44)
[2017-07-29 12:58] VITALS: BP 146/103; PULSE 74; O2SAT 97
--- NOTE | 2017-07-29 15:31 | EMERGENCY ROOM VISIT NOTE ---
History Report prepared by Doug: Shauna Levy Under the Supervision of: Dr. Ho Vivar M.D. First contact with patient: 08:13 Chief Complaint: CHEST PAIN Stated Complaint: CHEST PAIN,RIGHT SHOULDER PAIN History of Present Illness The patient is a 26 year old female who presents to the Emergency Room with complaints of persistent right sided abdominal pain that began last evening. She currently rates her discomfort as an 8/10 in severity. 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 She states that she has been following with [facility] for her cancer, noting that her last chemotherapy treatment was July 12. The patient states that since she began this most recent course of chemotherapy, she has noticed increased pain generally. She states that she follows with Dr. Boucher, of Oncology locally. The patient states that her cancer was found when she was evaluated in the emergency department for right upper quadrant abdominal pain. Today, she reports right sided chest pain that radiates into her right shoulder and right neck. The patient denies any history of pain like this in the past. She states that her pain is worsened with lying flat, but denies any increased pain with breathing. The patient additionally reports right upper quadrant abdominal pain. She states that she noticed increased leg swelling yesterday. The patient denies any history of pneumonia or blood clots. Pt denies LOC, headache, fevers, chills, diaphoresis, visual changes, breathing difficulties, nausea, vomiting, back pain, melena, hematochezia, urinary symptoms, numbness, weakness, lymphadenopathy, rash, or other complaints. Source of History: patient Onset: last evening Position: chest (right) Symptom Intensity: 06/04 Timing: other (persistent) Modifying Factors (Worsening): other (lying flat) Associated Symptoms: + neck pain (right sided), + abdominal pain Note: Associated Symptoms: right shoulder pain, increased leg swelling Review of Systems See HPI for pertinent positives and negatives. A total of ten systems were reviewed and were otherwise negative. Past Medical & Surgical Medical Problems: (1) Adrenal carcinoma (2) Adrenal mass, right (3) Heart murmur (4) Right flank pain (5) Symptomatic anemia (6) [place] Teeth Removal Family History Breast cancer Diabetes mellitus FH: heart disease Social History Smoking Status: Never Smoker Alcohol Use: occasionally Drug Use: none Marital Status: , in relationship Housing Status: lives with family Occupation Status: employed Current/Historical Medications Scheduled Pembrolizumab (Keytruda), 1 DOSE IV UD Potassium Chloride Microencaps (Potassium Chloride Er), 1 TAB PO DAILY Scheduled PRN Oxycodone Ir (Roxicodone Ir), 1-2 TAB PO Q4H PRN for Severe Pain Allergies Coded Allergies: Ibuprofen (Verified Allergy, Intermediate, LIPS SWELL, HIVES, 07/29/17) Physical Exam Vital Signs Date Time Temp Pulse Resp B/P (MAP) Pulse Ox O2 Delivery O2 Flow Rate FiO2 07/29/17 12:58 74 19 146/103 97 07/29/17 12:24 63 07/29/17 11:48 89 18 152/107 97 Room Air 07/29/17 09:59 68 18 140/103 98 Room Air 07/29/17 08:23 78 07/29/17 08:16 99 Room Air 07/29/17 08:07 37.0 68 20 164/111 98 Room Air Physical Exam GENERAL: Awake, alert, uncomfortable-appearing, in no distress HENT: Normocephalic, atraumatic. Oropharynx unremarkable. EYES: Normal conjunctiva. Sclera non-icteric. NECK: Supple. No nuchal rigidity. FROM. No JVD. RESPIRATORY: Clear to auscultation. CARDIAC: Regular rate, normal rhythm. Extremities warm and well perfused. Pulses equal. ABDOMEN: Soft, non-distended. Mild right upper quadrant abdominal tenderness to palpation. No rebound or guarding. No masses. RECTAL: Deferred. MUSCULOSKELETAL: Chest examination reveals no tenderness, and a Mediport in the left upper chest. The back is symmetrical on inspection without obvious abnormality. There is no CVA tenderness to palpation. No joint edema. LOWER EXTREMITIES: Calves are equal size bilaterally and non-tender. No edema. No discoloration. NEURO: Normal sensorium. No sensory or motor deficits noted. SKIN: No rash or jaundice noted. Medical Decision & Procedures ER Provider Diagnostic Interpretation: Radiology results as stated below per my review and radiologist interpretation: CHEST ONE VIEW PORTABLE HISTORY: 26 years-old Female right chest pain, adrenal CA acute right-sided chest pain. History of metastatic adrenal carcinoma. COMPARISON: Chest CT 07/09/2017, chest radiograph 08/21/2016 TECHNIQUE: Portable upright AP view of the chest FINDINGS: Left subclavian Nzthoq-[id number]-[id number] catheter is again seen with distal tip terminating near the superior cavoatrial junction. Cardiac silhouette is upper limits of normal. No pneumothorax. There is mild blunting of the right costophrenic angle suggesting small effusion. Mild right hemidiaphragm elevation is noted. Ill-defined bibasilar opacities correlate with multiple pulmonary metastasis seen on comparison chest CT. The bones are grossly intact. Surgical clips are seen within the right upper abdomen. IMPRESSION: 1. Mild blunting of the right costophrenic angle suggests trace pleural effusion. 2. Ill-defined basilar opacities correlate with the previously noted multiple pulmonary metastasis seen on comparison chest CT 07/09/2017 The above report was generated using voice recognition software. It may contain grammatical, syntax or spelling errors. Electronically signed by: Jm Gallardo M.D. 07/29/2017 9:19 AM Dictated Date/Time: 07/29/2017 9:15 AM CHEST CTA for PULMONARY ARTERIES CT DOSE: 201.58 mGy.cm HISTORY: Right upper chest pain. Shoulder pain. Stage IV adrenal cancer. TECHNIQUE: Multiaxial CT images of the chest were performed following the intravenous administration of contrast to evaluate the pulmonary arteries. Maximal intensity projection images were also obtained. A dose lowering technique was utilized adhering to the principles of ALARA. COMPARISON STUDY: Chest CT 07/09/2017. FINDINGS: Normal caliber thoracic aorta with no evidence for dissection. No pericardial effusion. Trace right pleural effusion. No filling defects within the pulmonary arteries to suggest pulmonary embolus. The heart is normal in size. Left subclavian Port-A-Cath terminates in the superior cavoatrial junction. No suspicious lytic or blastic osseous lesions. Multiple large hepatic metastatic lesions are again noted. Dominant lesion measures 12 cm. This is similar in size compared to the prior study. Left upper abdominal lymphadenopathy/soft tissue mass is again noted. This measures 4.4 cm. The enlarged right peritracheal lymph node is not significant changed. No hilar lymphadenopathy. Multiple metastatic pleural and pulmonary nodules are again noted. These are not significant changed. Dominant nodule within the left lower lobe measures 1.9 cm. The central airways are patent. No pneumothorax. No new focal lung consolidations to suggest pneumonia. IMPRESSION: 1. No evidence for pulmonary embolus. 2. No significant change in the metastatic disease within the chest and abdomen as described above. 3. Trace right pleural effusion. Electronically signed by: Cruz Padilla M.D. 07/29/2017 10:00 AM Dictated Date/Time: 07/29/2017 9:51 AM Laboratory Results 07/29/17 08:35 Red Blood Count 3.74, Mean Corpuscular Volume 76.7, Mean Corpuscular Hemoglobin 22.7, Mean Corpuscular Hemoglobin Concent 29.6, Mean Platelet Volume 9.1, Neutrophils (%) (Auto) 72.8, Lymphocytes (%) (Auto) 18.2, Monocytes (%) (Auto) 7.7, Eosinophils (%) (Auto) 0.6, Basophils (%) (Auto) 0.1, Neutrophils # (Auto) 5.30, Lymphocytes # (Auto) 1.32, Monocytes # (Auto) 0.56, Eosinophils # (Auto) 0.04, Basophils # (Auto) 0.01 07/29/17 08:35 Test 07/29/17 08:30 07/29/17 08:35 Urine Color YELLOW Urine Appearance TURBID (CLEAR) Urine pH 7.5 (4.5-7.5) Urine Specific Bradford 1.017 (1.000-1.030) Urine Protein 1+ (NEG) Urine Glucose (UA) NEG (NEG) Urine Ketones NEG (NEG) Urine Occult Blood TRACE (NEG) Urine Nitrite NEG (NEG) Urine Bilirubin NEG (NEG) Urine Urobilinogen NEG (NEG) Urine Leukocyte Esterase NEG (NEG) Urine WBC (Auto) 10-30 /hpf (0-5) Urine RBC (Auto) 0-4 /hpf (0-4) Urine Hyaline Casts (Auto) 1-5 /lpf (0-5) Urine Epithelial Cells (Auto) >30 /lpf (0-5) Urine Bacteria (Auto) NEG (NEG) White Blood Count 7.27 K/uL (4.8-10.8) Red Blood Count 3.74 M/uL (4.2-5.4) Hemoglobin 8.5 g/dL (12.0-16.0) Hematocrit 28.7 % (37-47) Mean Corpuscular Volume 76.7 fL (80-100) Mean Corpuscular Hemoglobin 22.7 pg (25-34) Mean Corpuscular Hemoglobin Concent 29.6 g/dl (32-36) Platelet Count 243 K/uL (130-400) Mean Platelet Volume 9.1 fL (7.4-10.4) Neutrophils (%) (Auto) 72.8 % Lymphocytes (%) (Auto) 18.2 % Monocytes (%) (Auto) 7.7 % Eosinophils (%) (Auto) 0.6 % Basophils (%) (Auto) 0.1 % Neutrophils # (Auto) 5.30 K/uL (1.4-6.5) Lymphocytes # (Auto) 1.32 K/uL (1.2-3.4) Monocytes # (Auto) 0.56 K/uL (0.11-0.59) Eosinophils # (Auto) 0.04 K/uL (0-0.5) Basophils # (Auto) 0.01 K/uL (0-0.2) RDW Standard Deviation 47.6 fL (36.4-46.3) RDW Coefficient of Variation 17.0 % (11.5-14.5) Immature Granulocyte % (Auto) 0.6 % Immature Granulocyte # (Auto) 0.04 K/uL (0.00-0.02) Toxic Granulation 1+ Hypochromasia PRESENT Anisocytosis PRESENT Microcytosis PRESENT Ovalocytes 1+ Prothrombin Time 10.7 SECONDS (9.0-12.0) Prothromb Time International Ratio 1.0 (0.9-1.1) Activated Partial Thromboplast Time 27.6 SECONDS (21.0-31.0) Partial Thromboplastin Ratio 1.1 Anion Gap 9.0 mmol/L (3-11) Est Creatinine Clear Calc Drug Dose 96.6 ml/min Estimated GFR () 94.6 Estimated GFR (Non- 81.6 BUN/Creatinine Ratio 12.0 (10-20) Calcium Level 8.5 mg/dl (8.5-10.1) Magnesium Level 1.6 mg/dl (1.8-2.4) Total Bilirubin 0.2 mg/dl (0.2-1) Direct Bilirubin < 0.1 mg/dl (0-0.2) Aspartate Amino Transf (AST/SGOT) 60 U/L (15-37) Alanine Aminotransferase (ALT/SGPT) 34 U/L (12-78) Alkaline Phosphatase 151 U/L (45-117) Total Creatine Kinase 79 U/L (26-192) Creatine Kinase MB 1.1 ng/ml (0.5-3.6) Creatine Kinase MB Ratio 1.4 (0-3.0) Troponin I < 0.015 ng/ml (0-0.045) Total Protein 6.6 gm/dl (6.4-8.2) Albumin 2.4 gm/dl (3.4-5.0) Thyroid Stimulating Hormone (TSH) 1.240 uIu/ml (0.300-4.500) Laboratory results reviewed by me Medications Administered Medications (Trade) Dose Ordered Sig/Karlos Route Start Time Stop Time Status Last Admin Dose Admin Sodium Chloride 1,000 ml @ 125 mls/hr Q8H STAT IV 07/29/17 08:13 07/29/17 13:38 DC 07/29/17 08:36 125 MLS/HR Hydromorphone HCl (Dilaudid Inj) 0.5 mg NOW STAT IV 07/29/17 09:47 07/29/17 09:48 DC 07/29/17 09:59 0.5 MG Potassium Chloride (Klor-Con M10) 40 meq NOW STAT PO 07/29/17 12:42 07/29/17 12:44 DC 07/29/17 12:57 40 MEQ Oxycodone HCl (Roxicodone Immediate Rel Tab) 5 mg NOW STAT PO 07/29/17 12:42 07/29/17 12:44 DC 07/29/17 12:57 5 MG ECG Indication: chest pain Rate (beats per minute): 66 Rhythm: sinus rhythm Findings: ST depression, no acute ischemic change, no ectopy ED Course 0813: Ordered Sodium Chloride 1000 ml @ 125 mls/hr IV. 0839: The patient was evaluated in room B7. A complete history and physical exam was performed. 0947: Ordered Dilaudid Inj 0.5 mg IV. 1201: I reevaluated the patient and she is feeling better. I discussed the exam findings with her and I discussed the treatment plan. Oncology will be consulted. 1235: I discussed the patients case with Dr. Jenkins, Oncology. He states that the patient should be treated symptomatically and follow-up in the office. 1242: Ordered Oxycodone HCl 5 mg PO, Potassium Chloride 40 meq PO. 1247: I reevaluated the patient and she is doing well. I updated her on the treatment plan and she verbalized complete understanding and agreement. She is ready for discharge shortly. Medical Decision Triage Nursing notes reviewed. The patient's presentation and history were concerning for chest pain and a history of cancer. Etiologies such as pulmonary embolism, pneumonia, pneumothorax, musculoskeletal , cardiac ischemia, aortic dissection, infections, gastrointestinal, as well as others were entertained. Clinically the patient is doing well. She initially declined analgesia. She then asked for a medication and was given a small dose of IV Dilaudid. She felt much better after this. The patient's chest x-ray did not show any acute findings. Her ECG was unremarkable. No pericarditis. Her CBC, chemistry panel , LFTs, lipase, and cardiac markers were unremarkable except for mild anemia and hypokalemia. The patient was given oral potassium. She underwent CT imaging of her chest which revealed the findings as noted above. She has a complicated issue going on with her cancer. She has a small effusion. I suspect that this may be related to the effusion and causing like a pleurisy/ musculoskeletal issue. The patient has no evidence of pneumonia. There is no indication for hospitalization. It is also possible she has referred pain as she has significant metastasis in the liver. I discussed the case with her oncologist and he recommended a follow-up closely in the office. He agreed with initiation of pain medication. The patient was given a oral dose of oxycodone here and a prescription was sent to her pharmacy. The patient was educated. She was pleased with the treatment. She was discharged in stable condition. By the evaluation outlined above other emergent etiologies such as those listed in the differential, as well as others, were deemed relatively unlikely. The patient was educated about the findings as listed above. All questions were answered and the patient was pleased with the treatment. Return instructions were outlined and the patient was discharged in stable condition. The patient was referred to her PCP and oncology for follow-up for a recheck of the current condition. Medication Reconcilliation Current Medication List: was personally reviewed by me Blood Pressure Screening Patient's blood pressure: Elevated blood pressure Blood pressure disposition: Referred to PCP Consults Time Called: 1205 Consulting Physician: Dr. Jenkins, Oncology Returned Call: [phone] I discussed the patients case with Dr. Jenkins, Oncology. He states that the patient should be treated symptomatically and follow-up in the office. Impression Primary Impression: Right-sided chest pain Additional Impressions: Hypokalemia Metastatic cancer of adrenal glands Scribe Attestation The scribe's documentation has been prepared under my direction and personally reviewed by me in its entirety. I confirm that the note above accurately reflects all work, treatment, procedures, and medical decision making performed by me. Departure Information Dispostion Home / Self-Care Prescriptions Potassium Chloride Microencaps (POTASSIUM CHLORIDE ER) 20 Meq Tab 1 TAB PO DAILY for 3 Days, #3 TAB Prov: Ho Vivar MD 07/29/17 Oxycodone Ir (Roxicodone Ir) 5 Mg Tab 1-2 TAB PO Q4H Y for Severe Pain, #24 TAB Prov: Ho Vivar MD 07/29/17 Referrals RV. Mcmahon MD (PCP) Tonny Jenkins D.O. Forms HOME CARE DOCUMENTATION FORM, IMPORTANT VISIT INFORMATION Patient Instructions My [facility] Additional Instructions CHEST PAIN INSTRUCTIONS: DO NOT drive, drink alcohol, operate machinery, or perform dangerous activities today. You were given medications in the ER that can affect your ability to safely function or operate a vehicle. Oxycodone (OxyIR) 5mg: Take 1-2 pills every four hours for breakthrough pain. Avoid alcohol, operating machinery or dangerous equipment, working on ladders or roofs, DRIVING, or situations where being under the influence may be dangerous. It is recommended to use an [id number] stool softener such as Colace, 100mg twice daily while taking this medication to avoid constipation. Ibuprofen(Motrin, Advil) may be used for fever or pain. Use 600mg every six hours as needed. Take with food. Avoid using more than 2400mg in a 24 hour period. Do not use 2400mg per day for more than three consecutive days without physician direction. Prolonged inappropriate use can lead to stomach upset or ulcers. (AND/OR) Acetaminophen(Tylenol) may be used for fever or pain. Use 1000mg every six hours as needed. Avoid using more than 4000mg in a 24 hour period. Rest and drink plenty of fluids as tolerated. Continue current medications. Avoid strenuous activities and anything that worsens your pain. Resume normal activities once your symptoms resolve. Return to the ER immediately for worsening or persistent chest pain, abdominal pain, vomiting, fevers, chest pains, difficulty breathing, worsening of your condition, or as needed. Follow up with your primary physician in 2-3 days for a recheck of your current condition. Follow-up with Dr. Jenkins this week. Problem Qualifiers
== END 2017-07-29 13:17 | disposition home or self-care (01) ==
LOC: C.EDB 08:05
DX: R07.9 Chest pain, unspecified (principal); E87.6 Hypokalemia; C74.90 Malignant neoplasm of unspecified part of unspecified adrenal gland; C78.7 Secondary malignant neoplasm of liver and intrahepatic bile duct; C78.00 Secondary malignant neoplasm of unspecified lung; Z80.3 Family history of malignant neoplasm of breast; Z83.3 Family history of diabetes mellitus; Z79.899 Other long term (current) drug therapy; D64.9 Anemia, unspecified

== ENCOUNTER 2017-08-26 18:44 | Emergency (ER) | payer BC ==
[~2017-08-26] VITALS: Ht 170.2 cm; Wt 83.4 kg
[~2017-08-26 18:44] MED LIST changes: -OPTIRAY 320 IV PRN
[2017-08-26 18:54] VITALS: TEMP 37; Ht 170.2 cm; Wt 83.4 kg
[2017-08-26] MEDS ORDERED: SODIUM CHLORIDE 0.9% 1000ML 1,000 ML IV STA (19:38)
[2017-08-26] MEDS ORDERED: SODIUM CHLORIDE 0.9% 250ML 250 ML IV STA (19:38)
[2017-08-26] MEDS ORDERED: MoRPHine SULFATE 4 MG/ML 1 ML CARP\\VIAL IV STA ×2 (19:42→23:35)
[2017-08-26] MEDS ORDERED: ONDANSETRON INJ 2 MG/ML 2 ML VIAL IV STA (19:42)
[2017-08-26] MEDS ORDERED: OPTIRAY 320 IV PRN (19:45)
--- NOTE | 2017-08-26 19:53 | EMERGENCY ROOM VISIT NOTE ---
History Report prepared by Doug: Diane Torres Under the Supervision of: Dr. Nickie Spencer M.D. First contact with patient: 19:27 Chief Complaint: ABDOMINAL PAIN Stated Complaint: RIGHT ABD PAIN AND DISTENTION Nursing Triage Summary: Pt c/o bilateral upper abdomen pain and nausea for the past two months. Pt on clinical trial immunotherapy and stated it had started when she started the trial. History of Present Illness The patient is a 26 year old female who presents to the Emergency Room with complaints of constant upper abdominal pain beginning 2 months ago. The patient states that she has adrenal carcinoma and is currently on clinical trial immunotherapy. She reports that since she started the trial she has been having upper abdominal pain and nausea. Today the patient notes that her stomach feels distended and like there is a basketball in her RUQ that is worsened with eating. The patient complains of bilateral leg swelling that began a few days ago. She notes that the swelling and pain is significantly worse with walking. She reports that 1 week ago she had blood work with her infusion and her liver enzymes were elevated. The patient states that she gets her medication once every 3 weeks and she had her 3rd dose 3 days ago. She denies any vomiting, fever, blood in the stool. Source of History: patient Onset: 2 months ago Position: abdomen (upper) Timing: constant Modifying Factors (Worsening): eating Associated Symptoms: + nausea, No fevers, No vomiting Note: Pt complains of abdominal distention, leg swelling. She denies blood in the stool. Review of Systems See HPI for pertinent positives & negatives. A total of 10 systems reviewed and were otherwise negative. Past Medical & Surgical Medical Problems: (1) Adrenal carcinoma (2) Adrenal mass, right (3) Heart murmur (4) Right flank pain (5) Symptomatic anemia (6) [place] Teeth Removal Family History Breast cancer Diabetes mellitus FH: heart disease Social History Smoking Status: Never Smoker Alcohol Use: occasionally Drug Use: none Marital Status: , in relationship Housing Status: lives with family Occupation Status: employed Current/Historical Medications Scheduled Fentanyl (Fentanyl), 1 PATCH TD q three days Pembrolizumab (Keytruda), 1 DOSE IV UD Spironolactone (Aldactone), 25 MG PO DAILY Zolpidem Tartrate (Ambien), 5 MG PO HS Scheduled PRN Oxycodone Immediate Rel Tab (Roxicodone Ir), 1-2 TAB PO Q6 PRN for Severe Pain Allergies Coded Allergies: Ibuprofen (Verified Allergy, Intermediate, LIPS SWELL, HIVES, 07/29/17) Physical Exam Vital Signs Date Time Temp Pulse Resp B/P (MAP) Pulse Ox O2 Delivery O2 Flow Rate FiO2 08/27/17 00:32 93 18 129/79 95 08/26/17 23:32 97 18 160/119 97 Room Air 08/26/17 21:44 72 18 08/26/17 21:43 149/110 08/26/17 21:26 84 08/26/17 18:54 37.0 98 18 173/115 98 Room Air Physical Exam Vital signs reviewed. General: Well-appearing female, in no significant distress. HEENT: No scleral icterus, PERRLA, neck supple. Atraumatic. Cardiovascular: Regular rate and rhythm, no extra sounds. Pulmonary: Clear to auscultation bilaterally, normal work of breathing. Abdomen: Distended abdomen, mild diffuse tenderness, nondistended, positive bowel sounds. Musculoskeletal: Atraumatic, no peripheral edema. Neurologic: Patient awake alert and oriented x 3 Skin: Warm, dry, no rash Medical Decision & Procedures ER Provider Diagnostic Interpretation: Radiology results as stated below per my review and radiologist interpretation: ULTRASOUND BILATERAL LOWER EXTREMITY VENOUS FINDINGS: There is no sonographic evidence of deep venous thrombosis identified in the right or left lower extremity. The common femoral, superficial femoral, and popliteal veins are patent and normally compressible bilaterally. The greater saphenous vein and the profunda femoris vein at the junction with the common fe moral vein are clear in both legs. The visualized calf veins are patent bilaterally. IMPRESSION: There is no sonographic evidence of deep venous thrombosis identified in the right or left lower extremity. Electronically signed by: Liborio Joseph M.D. 08/26/2017 9:09 PM Dictated Date/Time: 08/26/2017 9:[address] SCAN OF THE ABDOMEN AND PELVIS WITH IV CONTRAST FINDINGS: Lung bases: The heart is normal in size and without pericardial effusion. The tip of an IV catheter is noted in the right atrium. Multifocal pulmonary metastatic disease is again seen at the lung bases. This has modestly progressed from the 07/09/2017 examination. The largest lesion is seen at the left lung base on image #83 and measures 2.1 cm. A trace right pleural effusion is noted. No airspace consolidation is seen. Liver: The contrast-enhanced liver is normal in size and heterogeneous in attenuation. There is definite intrahepatic biliary ductal dilatation. Large hepatic masses have increased in size from 07/09/2017. The largest lesion in the right lobe measures approximately 14 x 12 cm. This appears to demonstrate central necrosis. These lesions distort the pulmonary vasculature. There is narrowing of the main portal vein which appears patent.. Gallbladder: Not identified and presumed surgically absent. Spleen: Normal in size and attenuation. Pancreas: Unremarkable. Adrenal glands: The right adrenal gland is surgically absent. The left adrenal gland is normal in appearance. Kidneys: The right kidney is surgically absent. The left kidney is normal in size and there is mild left-sided hydroureteronephrosis. This is similar to previous. The left kidney enhances homogeneously. Abdominal vasculature: The abdominal aorta is normal in course and caliber. Bowel: The small bowel and colon are normal in course and caliber. There is moderate colonic fecal retention. The appendix is well-visualized and normal. Peritoneum and retroperitoneum: There is no intraperitoneal free air. There is a small volume of abdominopelvic ascites. Peritoneal carcinomatosis has progressed as compared to previous. There is a large lesion in the left upper quadrant between the stomach and the spleen seen on image #142. This has significantly increased in size, now measuring approximately 6 x 5 cm (previously measuring up to 4 cm). A large lesion/node in the central mesentery on image #180 measures approximately 6 x 8 cm (previously measuring up to 4.5 cm). Additional mesenteric lesions also increased in size. Lymphadenopathy: Aortocaval node on image #203 measures 1.9 cm.. Pelvic viscera: The bladder, uterus, and adnexa are normal as visualized. There are bilateral ovarian follicles. Skeletal structures: No lytic or blastic lesions are seen. IMPRESSION: 1. No definite acute infectious or inflammatory findings are identified. 2. Overall progression of multifocal metastatic disease as compared to 07/09/2017. There is been progression of pulmonary, hepatic, julia, and peritoneal disease from previous. The largest liver lesions appear to demonstrate central necrosis. 3. There is a small volume of abdominopelvic ascites. 4. Trace right pleural effusion. 5. Mild right hydroureteronephrosis is similar to previous. 6. Additional findings as above. Electronically signed by: Liborio Joseph M.D. 08/26/2017 10:40 PM Dictated Date/Time: 08/26/2017 10:24 PM Laboratory Results 08/26/17 20:15 Red Blood Count 4.02, Mean Corpuscular Volume 73.1, Mean Corpuscular Hemoglobin 23.1, Mean Corpuscular Hemoglobin Concent 31.6, Mean Platelet Volume 9.2, Neutrophils (%) (Auto) 79.6, Lymphocytes (%) (Auto) 11.6, Monocytes (%) (Auto) 6.8, Eosinophils (%) (Auto) 0.1, Basophils (%) (Auto) 0.1, Neutrophils # (Auto) 7.14, Lymphocytes # (Auto) 1.04, Monocytes # (Auto) 0.61, Eosinophils # (Auto) 0.01, Basophils # (Auto) 0.01 08/26/17 20:15 Test 08/26/17 20:15 08/26/17 20:47 White Blood Count 8.97 K/uL (4.8-10.8) Red Blood Count 4.02 M/uL (4.2-5.4) Hemoglobin 9.3 g/dL (12.0-16.0) Hematocrit 29.4 % (37-47) Mean Corpuscular Volume 73.1 fL (80-100) Mean Corpuscular Hemoglobin 23.1 pg (25-34) Mean Corpuscular Hemoglobin Concent 31.6 g/dl (32-36) Platelet Count 273 K/uL (130-400) Mean Platelet Volume 9.2 fL (7.4-10.4) Neutrophils (%) (Auto) 79.6 % Lymphocytes (%) (Auto) 11.6 % Monocytes (%) (Auto) 6.8 % Eosinophils (%) (Auto) 0.1 % Basophils (%) (Auto) 0.1 % Neutrophils # (Auto) 7.14 K/uL (1.4-6.5) Lymphocytes # (Auto) 1.04 K/uL (1.2-3.4) Monocytes # (Auto) 0.61 K/uL (0.11-0.59) Eosinophils # (Auto) 0.01 K/uL (0-0.5) Basophils # (Auto) 0.01 K/uL (0-0.2) RDW Standard Deviation 50.7 fL (36.4-46.3) RDW Coefficient of Variation 19.1 % (11.5-14.5) Immature Granulocyte % (Auto) 1.8 % Immature Granulocyte # (Auto) 0.16 K/uL (0.00-0.02) Prothrombin Time 10.6 SECONDS (9.0-12.0) Prothromb Time International Ratio 1.0 (0.9-1.1) Activated Partial Thromboplast Time 26.4 SECONDS (21.0-31.0) Partial Thromboplastin Ratio 1.0 Anion Gap 7.0 mmol/L (3-11) Est Creatinine Clear Calc Drug Dose 85.3 ml/min Estimated GFR () 79.4 Estimated GFR (Non- 68.5 BUN/Creatinine Ratio 19.6 (10-20) Calcium Level 8.5 mg/dl (8.5-10.1) Total Bilirubin 0.4 mg/dl (0.2-1) Direct Bilirubin < 0.1 mg/dl (0-0.2) Aspartate Amino Transf (AST/SGOT) 149 U/L (15-37) Alanine Aminotransferase (ALT/SGPT) 73 U/L (12-78) Alkaline Phosphatase 381 U/L (45-117) Total Protein 6.7 gm/dl (6.4-8.2) Albumin 2.1 gm/dl (3.4-5.0) Lipase 213 U/L (73-393) Urine Color YELLOW Urine Appearance CLEAR (CLEAR) Urine pH 7.0 (4.5-7.5) Urine Specific [place] 1.019 (1.000-1.030) Urine Protein 3+ (NEG) Urine Glucose (UA) NEG (NEG) Urine Ketones NEG (NEG) Urine Occult Blood NEG (NEG) Urine Nitrite NEG (NEG) Urine Bilirubin NEG (NEG) Urine Urobilinogen NEG (NEG) Urine Leukocyte Esterase NEG (NEG) Urine WBC (Auto) 1-5 /hpf (0-5) Urine RBC (Auto) 0-4 /hpf (0-4) Urine Hyaline Casts (Auto) 0 /lpf (0-5) Urine Epithelial Cells (Auto) 10-20 /lpf (0-5) Urine Bacteria (Auto) NEG (NEG) Laboratory results per my review. Medications Administered Medications (Trade) Dose Ordered Sig/Karlos Route Start Time Stop Time Status Last Admin Dose Admin Sodium Chloride 250 ml @ 999 mls/hr Q16M STAT IV 08/26/17 19:38 08/26/17 19:53 DC 08/26/17 19:38 999 MLS/HR Sodium Chloride 1,000 ml @ 125 mls/hr Q8H STAT IV 08/26/17 19:38 08/27/17 00:48 DC 08/26/17 20:32 125 MLS/HR Morphine Sulfate (MoRPHine SULFATE INJ) 4 mg NOW STAT IV 08/26/17 19:42 08/26/17 19:43 DC 08/26/17 20:32 4 MG Ondansetron HCl (Zofran Inj) 4 mg NOW STAT IV 08/26/17 19:42 08/26/17 19:43 DC 08/26/17 20:31 4 MG Morphine Sulfate (MoRPHine SULFATE INJ) 4 mg NOW STAT IV 08/26/17 23:35 08/26/17 23:36 DC 08/26/17 23:38 4 MG Fentanyl (Duragesic Patch) 25 mcg NOW STAT TD 08/26/17 23:35 08/26/17 23:36 DC 08/27/17 00:27 25 MCG ED Course 7: Past medical records reviewed. The patient was evaluated in room C3. A complete history and physical examination was performed. 1938: Sodium Chloride 1000 ml @ 125 mls/hr IV, Sodium Chloride 250 ml @ 999 mls/ hr IV. 1942: Zofran Inj 4mg IV, Morphine Sulfate 4mg IV. 2334: Morphine Sulfate 4mg IV. 2335: Fentanyl 25mcg RD, Morphine Sulfate 4mg IV. 2342: Upon reevaluation, the patient appeared to have improvement of her symptoms. I discussed findings with the patient. She verbalized agreement of the treatment plan. The patient was discharged home. Medical Decision Differential diagnosis includes cancer related pain, intraabdominal bleed, small bowel obstruction, spontaneous bacterial peritonitis, peptic ulcer disease. This patient was evaluated and appeared to be in no significant distress. IV access was obtained and laboratory work was drawn. She was medicated with IV morphine and Zofran. She was hydrated with normal saline solution. Physical examination reveals a protuberant abdomen and bilateral lower extremity edema. Bilateral lower she may Dopplers are negative for DVT. CT scan abdomen and pelvis is consistent with progressive metastatic adrenal cancer. Patient does have a large mass in the liver that is necrotic centrally. She also has a mass between the stomach and the spleen that is likely causing her postprandial discomfort. The patient was informed of the findings. She was advised to follow-up with her oncologist this week. She was given a fentanyl patch 25 g and a prescription for 10. Patient will use OxyIR as needed for significant pain as needed. She will return to the ER for worsening of symptoms or any medical concerns. Medication Reconcilliation Current Medication List: was personally reviewed by me Blood Pressure Screening Patient's blood pressure: Elevated blood pressure Blood pressure disposition: Elevated BP felt to be situational Impression Primary Impression: Intractable abdominal pain Additional Impression: Metastatic cancer of adrenal glands Scribe Attestation The scribe's documentation has been prepared under my direction and personally reviewed by me in its entirety. I confirm that the note above accurately reflects all work, treatment, procedures, and medical decision making performed by me. Departure Information Dispostion Home / Self-Care Prescriptions Fentanyl (Fentanyl) 25 Mcg Tdsy 1 PATCH TD q three days, #10 PATCH Prov: Nickie Spencer M.D. 08/26/17 Oxycodone Immediate Rel Tab (ROXICODONE IR) 5 Mg Tab 1-2 TAB PO Q6 Y for Severe Pain, #60 TAB Prov: Nickie Spencer M.D. 08/26/17 Referrals RV. Mcmahon MD (PCP) Forms HOME CARE DOCUMENTATION FORM, IMPORTANT VISIT INFORMATION Patient Instructions My [facility] Additional Instructions Diagnosis: Intractable abdominal pain, metastatic adrenal cancer Fentanyl patch 25 mcg, change every [address] on this medication. Oxy IR 1-2 tabs every 6 hours as needed for more severe pain. Do not drive on this medication. Drink plenty of fluids. Follow up with your doctor this week for reevaluation. Return to the ED for worsening of symptoms or any medical concerns. Problem Qualifiers
[2017-08-26 20:51] LABS: PROTHROMBIN TIME (PATIENT) 10.6 SECONDS (9.0-12.0)
[2017-08-26 20:58] LABS: BASO % 0.1 %; BASO ABS # 0.01 K/uL (0-0.2); COMPLETE YES; EOS % 0.1 %; HEMATOCRIT 29.4 % (37-47); IG% 1.8 %; LYMPH % 11.6 %; LYMPH ABS # 1.04 K/uL (1.2-3.4); MEAN CELL VOLUME 73.1 fL (80-100); MEAN CORPUSCULAR HEMOGLOBIN 23.1 pg (25-34); MEAN CORPUSCULAR HGB CONC 31.6 g/dl (32-36); MEAN PLATELET VOLUME 9.2 fL (7.4-10.4); MONO % 6.8 %; NEUT % 79.6 %; PLATELET COUNT 273 K/uL (130-400); RED BLOOD COUNT 4.02 M/uL (4.2-5.4); WHITE BLOOD COUNT 8.97 K/uL (4.8-10.8)
[2017-08-26 21:03] LABS: ALT/SGPT 73 U/L (12-78); BLOOD UREA NITROGEN 22 mg/dl (7-18); BUN/CREATININE RATIO 19.6 (10-20); CALCIUM 8.5 mg/dl (8.5-10.1); CARBON DIOXIDE 29 mmol/L (21-32); CHLORIDE 101 mmol/L (98-107); CREATININE 1.11 mg/dl (0.60-1.20); GLUCOSE 165 mg/dl (70-99); POTASSIUM 3.4 mmol/L (3.5-5.1); SODIUM 137 mmol/L (136-145)
[2017-08-26 21:06] LABS: ALKALINE PHOSPHATASE 381 U/L (45-117); AST/SGOT 149 U/L (15-37)
--- NOTE | 2017-08-26 21:11 | DIAGNOSTIC IMAGING REPORT ---
ULTRASOUND BILATERAL LOWER EXTREMITY VENOUS CLINICAL HISTORY: Lower extremity edema. COMPARISON STUDY: Bilateral lower extremity venous ultrasound dated 05/06/2017. TECHNIQUE: Real-time, grayscale, and color Doppler sonography of the deep veins of the right and left lower extremity was performed from the inguinal crease to the calf. Compression and augmentation were utilized. FINDINGS: There is no sonographic evidence of deep venous thrombosis identified in the right or left lower extremity. The common femoral, superficial femoral, and popliteal veins are patent and normally compressible bilaterally. The greater saphenous vein and the profunda femoris vein at the junction with the common femoral vein are clear in both legs. The visualized calf veins are patent bilaterally. IMPRESSION: There is no sonographic evidence of deep venous thrombosis identified in the right or left lower extremity. Electronically signed by: Liborio Joseph M.D. 08/26/2017 9:09 PM Dictated Date/Time: 08/26/2017 9:09 PM
[2017-08-26 21:43] LABS: URINE APPEARANCE CLEAR (CLEAR); URINE BILIRUBIN NEG (NEG); URINE COLOR YELLOW; URINE NITRITE NEG (NEG); URINE SPECIFIC GRAVITY 1.019 (1.000-1.030); UROBILINOGEN NEG (NEG); ZZUR CULT IF INDIC CLEAN CATCH NO
[2017-08-26 21:46] LABS: MANUAL MICROSCOPIC REQUIRED? NO; REVIEW REQ? NO
[2017-08-26] MEDS ORDERED: SPIR25TA PO (21:48)
[2017-08-26] MEDS ORDERED: ZOLP5TAB PO (21:48)
--- NOTE | 2017-08-26 22:41 | DIAGNOSTIC IMAGING REPORT ---
CT SCAN OF THE ABDOMEN AND PELVIS WITH IV CONTRAST CLINICAL HISTORY: Increasing abdominal pain. History of adrenocortical carcinoma with hepatic metastases. COMPARISON STUDY: Abdominal CT dated 07/09/2017. TECHNIQUE: Following the IV administration of 65 cc of Optiray 320, CT scan of the abdomen and pelvis is performed from the lung bases to the proximal femora. Images are reviewed in the axial, sagittal, and coronal planes. IV contrast was administered without complication. Automated dose control exposure was utilized. CT DOSE: 555.11 mGy.cm FINDINGS: Lung bases: The heart is normal in size and without pericardial effusion. The tip of an IV catheter is noted in the right atrium. Multifocal pulmonary metastatic disease is again seen at the lung bases. This has modestly progressed from the 07/09/2017 examination. The largest lesion is seen at the left lung base on image #83 and measures 2.1 cm. A trace right pleural effusion is noted. No airspace consolidation is seen. Liver: The contrast-enhanced liver is normal in size and heterogeneous in attenuation. There is definite intrahepatic biliary ductal dilatation. Large hepatic masses have increased in size from 07/09/2017. The largest lesion in the right lobe measures approximately 14 x 12 cm. This appears to demonstrate central necrosis. These lesions distort the pulmonary vasculature. There is narrowing of the main portal vein which appears patent.. Gallbladder: Not identified and presumed surgically absent. Spleen: Normal in size and attenuation. Pancreas: Unremarkable. Adrenal glands: The right adrenal gland is surgically absent. The left adrenal gland is normal in appearance. Kidneys: The right kidney is surgically absent. The left kidney is normal in size and there is mild left-sided hydroureteronephrosis. This is similar to previous. The left kidney enhances homogeneously. Abdominal vasculature: The abdominal aorta is normal in course and caliber. Bowel: The small bowel and colon are normal in course and caliber. There is moderate colonic fecal retention. The appendix is well-visualized and normal. Peritoneum and retroperitoneum: There is no intraperitoneal free air. There is a small volume of abdominopelvic ascites. Peritoneal carcinomatosis has progressed as compared to previous. There is a large lesion in the left upper quadrant between the stomach and the spleen seen on image #142. This has significantly increased in size, now measuring approximately 6 x 5 cm (previously measuring up to 4 cm). A large lesion/node in the central mesentery on image #180 measures approximately 6 x 8 cm (previously measuring up to 4.5 cm). Additional mesenteric lesions also increased in size. Lymphadenopathy: Aortocaval node on image #203 measures 1.9 cm.. Pelvic viscera: The bladder, uterus, and adnexa are normal as visualized. There are bilateral ovarian follicles. Skeletal structures: No lytic or blastic lesions are seen. IMPRESSION: 1. No definite acute infectious or inflammatory findings are identified. 2. Overall progression of multifocal metastatic disease as compared to 07/09/2017. There is been progression of pulmonary, hepatic, julia, and peritoneal disease from previous. The largest liver lesions appear to demonstrate central necrosis. 3. There is a small volume of abdominopelvic ascites. 4. Trace right pleural effusion. 5. Mild right hydroureteronephrosis is similar to previous. 6. Additional findings as above. Electronically signed by: Liborio Joseph M.D. 08/26/2017 10:40 PM Dictated Date/Time: 08/26/2017 10:24 PM
[2017-08-26] MEDS ORDERED: MoRPHine SULFATE 4 MG/ML 1 ML CARP\\VIAL ONE (23:34)
[2017-08-26] MEDS ORDERED: FENTANYL 25 MCG/HR TDSY TD STA (23:35)
[2017-08-26] MEDS ORDERED: OXYC1TAB3 PO (23:41)
[2017-08-26] MEDS ORDERED: DRGTP25 TD (23:50)
[2017-08-27 00:32] VITALS: BP 129/79; PULSE 93; O2SAT 95
== END 2017-08-27 00:37 | disposition home or self-care (01) ==
LOC: C.EDB 18:45 → C.EDC 08-27 00:37
DX: R10.10 Upper abdominal pain, unspecified (principal); C74.90 Malignant neoplasm of unspecified part of unspecified adrenal gland; R11.0 Nausea; M79.89 Other specified soft tissue disorders; M79.604 Pain in right leg; M79.605 Pain in left leg; Z79.899 Other long term (current) drug therapy; Z80.3 Family history of malignant neoplasm of breast; Z82.49 Family history of ischemic heart disease and other diseases of the circulatory system; Z83.3 Family history of diabetes mellitus

== ENCOUNTER 2017-09-15 21:13 | Inpatient (IN) | payer BC ==
[~2017-09-15] VITALS: Ht 167.6 cm; Wt 83.3 kg
[~2017-09-15 21:13] MED LIST changes: +DRGTP25 TD; -POTA20TA13 PO; +SPIR25TA PO; +ZOLP5TAB PO
[2017-09-15] MEDS ORDERED: FNTTP25 TD (21:54)
[2017-09-15] MEDS ORDERED: OXYC1TAB3 PO (21:54)
[2017-09-15] MEDS ORDERED: POLY335019 PO (21:54)
[2017-09-15] MEDS ORDERED: FURO-85 PO (21:54)
[2017-09-15] MEDS ORDERED: DOCU-94 PO (21:54)
[2017-09-15] MEDS ORDERED: OPTIRAY 320 IV PRN (22:30)
[2017-09-15 22:40] LABS: HEMATOCRIT 30.4 % (37-47); MEAN CELL VOLUME 72.2 fL (80-100); MEAN CORPUSCULAR HEMOGLOBIN 22.1 pg (25-34); MEAN CORPUSCULAR HGB CONC 30.6 g/dl (32-36); MEAN PLATELET VOLUME 8.9 fL (7.4-10.4); PLATELET COUNT 228 K/uL (130-400); RED BLOOD COUNT 4.21 M/uL (4.2-5.4); WHITE BLOOD COUNT 7.73 K/uL (4.8-10.8)
[2017-09-15 22:45] LABS: INR 1.1 (0.9-1.1); PROTHROMBIN TIME (PATIENT) 11.8 SECONDS (9.0-12.0)
[2017-09-15 22:52] LABS: URINE APPEARANCE CLEAR (CLEAR); URINE BILIRUBIN NEG (NEG); URINE COLOR DK YELLOW; URINE EPITHELIAL CELL AUTO >30 /lpf (0-5); URINE NITRITE NEG (NEG); URINE PH 6.5 (4.5-7.5); URINE SPECIFIC GRAVITY 1.023 (1.000-1.030); UROBILINOGEN POS (NEG); ZZUR CULT IF INDIC CLEAN CATCH NO
[2017-09-15 22:53] LABS: MANUAL MICROSCOPIC REQUIRED? NO; REVIEW REQ? NO
[2017-09-15 22:59] LABS: BUN/CREATININE RATIO 22.2 (10-20); CALCIUM 8.6 mg/dl (8.5-10.1); CREATININE 1.43 mg/dl (0.60-1.20); POTASSIUM 3.4 mmol/L (3.5-5.1)
[2017-09-15 23:02] LABS: ALB/GLOB RATIO 0.4 (0.9-2)
[2017-09-15 23:03] LABS: ANISOCYTOSIS PRESENT; BASO % 0.1 %; BASO ABS # 0.01 K/uL (0-0.2); COMPLETE YES; IG% 0.9 %; LYMPH % 11.3 %; LYMPH ABS # 0.87 K/uL (1.2-3.4); NEUT % 80.7 %; OVALOCYTES 1+
[2017-09-16] VITALS (10 sets, daily range): BP systolic 123–148; BP diastolic 91–111; PULSE 74–111; TEMP 36.6–36.9; O2SAT 95–98; Ht 167.6 cm; Wt 83.3 kg
[2017-09-16] MEDS ORDERED: HYDROmorphone INJ 0.5 MG/0.5 ML SYR IV STA (00:41)
[2017-09-16] MEDS ORDERED: ACETAMINOPHEN 325 MG TAB PO PRN (00:45)
[2017-09-16] MEDS ORDERED: ZOLPIDEM TARTRATE 5 MG TAB PO PRN (00:45)
[2017-09-16] MEDS ORDERED: MAGNESIUM HYDROXIDE SUSP 30 ML UDC PO PRN (00:45)
[2017-09-16] MEDS ORDERED: ALUMINUM/MAGNESIUM/SIMETH (MAALOX MAX) 30 ML UDC PO PRN (00:45)
[2017-09-16] MEDS ORDERED: ONDANSETRON INJ 2 MG/ML 2 ML VIAL IV PRN (00:45)
[2017-09-16] MEDS ORDERED: MoRPHine SULFATE 2 MG/ML CARP IV PRN (00:45)
--- NOTE | 2017-09-16 00:51 | EMERGENCY ROOM VISIT NOTE ---
History First contact with patient: 21:33 Chief Complaint: SHORTNESS OF BREATH Stated Complaint: SOB History of Present Illness The patient is a 26 year old female who presents to the Emergency Room with complaints of shortness of breath and central chest discomfort that is worsening over the past one to 2 days. 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 She is concerned that these may have been increasing in size causing pressure on to her lungs. She is not currently on chemotherapy she states her last round was failed. She is undergoing clinical trials in [place] and is under the care of Dr Jenkins at this facility. She does have some distention of her abdomen at baseline and does not seem worse to her than normal. She has been having increased swelling in her lower extremities for the past one to 2 weeks. The patient has not had fever or chills. She has no distinct "pain", but describes this more as a discomfort. Of note, she does wear a fentanyl patch for her discomfort. The patient does not have a history of DVT or PE. Review of Systems More than 10 systems were reviewed and otherwise negative with the exception of history of present illness. Past Medical/Surgical History Medical Problems: (1) Adrenal carcinoma (2) Adrenal mass, right (3) Heart murmur (4) IVC thrombosis (5) Pulmonary embolism (6) Pulmonary embolism (7) Right flank pain (8) Symptomatic anemia (9) [place] Teeth Removal Family History Breast cancer Diabetes mellitus FH: heart disease Social History Smoking Status: Never Smoker Alcohol Use: occasionally Drug Use: none Marital Status: , in relationship Housing Status: lives with family Occupation Status: employed Current/Historical Medications Scheduled Fentanyl (Fentanyl), 25 MCG TD [id number] Furosemide (Lasix), 20 MG PO DAILY Spironolactone (Aldactone), 25 MG PO DAILY Zolpidem Tartrate (Ambien), 5 MG PO HS Scheduled PRN Docusate Sodium (Colace), 200 MG PO DAILY PRN for Constipation Oxycodone Ir (Roxicodone Ir), 1-2 TAB PO Q6H PRN for Severe Pain Polyethylene Glycol 3350 (Miralax), 17 GM PO DAILY PRN for Constipation Physical Exam Vital Signs Date Time Temp Pulse Resp B/P (MAP) Pulse Ox O2 Delivery O2 Flow Rate FiO2 09/16/17 01:23 66 18 138/101 97 Room Air 09/16/17 00:55 75 16 141/103 95 Room Air 09/16/17 00:54 76 09/15/17 23:31 78 20 128/92 97 Room Air 09/15/17 22:40 87 18 140/92 94 Room Air 09/15/17 21:36 95 09/15/17 21:32 96 09/15/17 21:32 96 Room Air 09/15/17 21:15 36.6 130 22 132/97 97 Room Air Physical Exam VITALS: Vitals are noted on the nurse's note and reviewed by myself. Vital signs with tachycardia GENERAL: Well-developed, well-nourished, white female who appears mildly ill but certainly nontoxic. She is cooperative with the examination. HEART: Regular rate and rhythm without murmurs gallops or rubs. LUNGS: Generally clear throughout with diminished breath sounds in the right lower lobe ABDOMEN: Abdomen is mildly distended with normal bowel sounds 4. No distinct abdominal tenderness. MUSCULOSKELETAL: Bilateral lower extremity edema with 3+ pitting edema bilateral. No distinct calf tenderness. NEURO: Patient was alert and oriented to person place and time. CN II through XII grossly intact. Medical Decision & Procedures ER Provider Diagnostic Interpretation: Preliminary Findings Only See Final Report For Complete Findings CTA CHEST: Compared to CT 07/09/17. Small filling defects in the right lower lobe compatible with PE (series 4, images 79-88 and 92-95). No evidence of aortic dissection. Redemonstration of bilateral pulmonary nodules compatible with metastatic disease. No pneumothorax or pleural effusion. Mediastinal adenopathy. Preliminary Findings Only See Final Report For Complete Findings CT ABDOMEN & PELVIS With Contrast: Compared to CT 08/26/17. Redemonstration of extensive metastatic disease. Interval increase size of lesion anterior to the pancreas and at the right posterolateral aspect of the uterus. Ill-defined low attenuation in the spleen of indeterminate significance Heterogeneous low attenuation in the IVC and venous structures, may be related to recent contrast, cannot completely exclude possibility of thrombus. Small scattered free fluid. Additional findings similar to prior. Laboratory Results 09/15/17 22:15 Red Blood Count 4.21, Mean Corpuscular Volume 72.2, Mean Corpuscular Hemoglobin 22.1, Mean Corpuscular Hemoglobin Concent 30.6, Mean Platelet Volume 8.9, Neutrophils (%) (Auto) 80.7, Lymphocytes (%) (Auto) 11.3, Monocytes (%) (Auto) 7.0, Eosinophils (%) (Auto) 0.0, Basophils (%) (Auto) 0.1, Neutrophils # (Auto) 6.24, Lymphocytes # (Auto) 0.87, Monocytes # (Auto) 0.54, Eosinophils # (Auto) 0.00, Basophils # (Auto) 0.01 09/15/17 22:15 Test 09/15/17 22:15 09/15/17 22:28 09/15/17 22:30 White Blood Count 7.73 K/uL (4.8-10.8) Red Blood Count 4.21 M/uL (4.2-5.4) Hemoglobin 9.3 g/dL (12.0-16.0) Hematocrit 30.4 % (37-47) Mean Corpuscular Volume 72.2 fL (80-100) Mean Corpuscular Hemoglobin 22.1 pg (25-34) Mean Corpuscular Hemoglobin Concent 30.6 g/dl (32-36) Platelet Count 228 K/uL (130-400) Mean Platelet Volume 8.9 fL (7.4-10.4) Neutrophils (%) (Auto) 80.7 % Lymphocytes (%) (Auto) 11.3 % Monocytes (%) (Auto) 7.0 % Eosinophils (%) (Auto) 0.0 % Basophils (%) (Auto) 0.1 % Neutrophils # (Auto) 6.24 K/uL (1.4-6.5) Lymphocytes # (Auto) 0.87 K/uL (1.2-3.4) Monocytes # (Auto) 0.54 K/uL (0.11-0.59) Eosinophils # (Auto) 0.00 K/uL (0-0.5) Basophils # (Auto) 0.01 K/uL (0-0.2) RDW Standard Deviation 55.1 fL (36.4-46.3) RDW Coefficient of Variation 21.3 % (11.5-14.5) Immature Granulocyte % (Auto) 0.9 % Immature Granulocyte # (Auto) 0.07 K/uL (0.00-0.02) Anisocytosis PRESENT Ovalocytes 1+ Prothrombin Time 11.8 SECONDS (9.0-12.0) Prothromb Time International Ratio 1.1 (0.9-1.1) Activated Partial Thromboplast Time 25.9 SECONDS (21.0-31.0) Partial Thromboplastin Ratio 1.0 Anion Gap 9.0 mmol/L (3-11) Est Creatinine Clear Calc Drug Dose 63.7 ml/min Estimated GFR () 58.4 Estimated GFR (Non- 50.4 BUN/Creatinine Ratio 22.2 (10-20) Calcium Level 8.6 mg/dl (8.5-10.1) Magnesium Level 2.0 mg/dl (1.8-2.4) Total Bilirubin 0.7 mg/dl (0.2-1) Aspartate Amino Transf (AST/SGOT) 185 U/L (15-37) Alanine Aminotransferase (ALT/SGPT) 71 U/L (12-78) Alkaline Phosphatase 545 U/L (45-117) Total Protein 6.0 gm/dl (6.4-8.2) Albumin 1.8 gm/dl (3.4-5.0) Globulin 4.2 gm/dl (2.5-4.0) Albumin/Globulin Ratio 0.4 (0.9-2) Lipase 107 U/L (73-393) Bedside Troponin I < 0.030 ng/ml (0-0.045) Urine Color DK YELLOW Urine Appearance CLEAR (CLEAR) Urine pH 6.5 (4.5-7.5) Urine Specific [place] 1.023 (1.000-1.030) Urine Protein 1+ (NEG) Urine Glucose (UA) NEG (NEG) Urine Ketones 1+ (NEG) Urine Occult Blood NEG (NEG) Urine Nitrite NEG (NEG) Urine Bilirubin NEG (NEG) Urine Urobilinogen POS (NEG) Urine Leukocyte Esterase SMALL (NEG) Urine WBC (Auto) 1-5 /hpf (0-5) Urine RBC (Auto) 0-4 /hpf (0-4) Urine Hyaline Casts (Auto) 5-10 /lpf (0-5) Urine Epithelial Cells (Auto) >30 /lpf (0-5) Urine Bacteria (Auto) NEG (NEG) Urine Test NEG (NEG) Medications Administered Medications (Trade) Dose Ordered Sig/Karlos Route Start Time Stop Time Status Last Admin Dose Admin Hydromorphone HCl (Dilaudid Inj) 0.5 mg NOW STAT IV 09/16/17 00:41 09/16/17 00:42 DC 09/16/17 00:53 0.5 MG Heparin Sodium/ Dextrose (Heparin 25,000 Unit/500ml D5W) 25,000 unit STK-MED ONCE .ROUTE 09/16/17 01:01 09/16/17 01:02 DC 09/16/17 01:08 25,000 UNIT ED Course Physical exam and history were performed. Nursing notes, EMR, and Medication List were personally reviewed. Patient appears to have some chest discomfort and shortness of breath for the past few days. She has a history of metastatic renal cancer. On examination she is tachycardic with decreased breath sounds in the right lower lobe. IV access was established and labs were obtained. EKG was performed the patient was placed on a lunchroom monitor. EKG showed nonspecific ST and T-wave abnormalities without obvious ischemia. The patient's blood work is as above and was reviewed. She does not have a significantly elevated white blood cell count. She is anemic, however this appears chronic over the past several months based on labs at this facility. Troponin x1 is negative. CT scans were read as above by [facility] as showing acute pulmonary embolism. This does correlate with the patient's symptoms. I attempted to contact oncology to help guide appropriate treatment, however we do not have this service available to us tonight in the emergency department. I discussed the case with my attending physician, Dr. Whitfield, and then with the on -call [facility] Hospitalist Dr Osei, who will evaluate the patient here in the department. Please see his dictation for further patient course, plan, and disposition. The chart was completed utilizing [employer] Speech Voice Recognition Software. Grammatical errors, random word insertions, pronoun errors, and incomplete sentences are an occasional consequence of this system due to software limitations, ambient noise, and hardware issues. Any formal questions or concerns about the content, text, or information contained within the body of this dictation should be directly addressed to the provider for clarification. . Medical Decision Differential diagnosis includes, but is not limited to: Myocardial infarction, dysrhythmia, pericarditis, pneumothorax, aortic aneurysm/dissection, DVT/PE, anxiety, GERD, PUD, electrolyte imbalance, thyroid disorder, pneumonia, bronchitis, pancreatitis, and others Impression Primary Impression: Acute pulmonary embolism Additional Impression: Metastatic cancer of adrenal glands Departure Information Referrals Balabanova-Tsarnakova, RV., MD (PCP) Patient Instructions [facility]ly [facility] Problem Qualifiers
[2017-09-16] MEDS ORDERED: OXYCODONE HCL IR 5 MG TAB (IMMEDIATE RELEASE) PO PRN (01:00)
[2017-09-16] MEDS ORDERED: D5NSS + 20MEQ KCL 1,000 ML IV SCH (01:00)
[2017-09-16] MEDS ORDERED: HYDROmorphone INJ 0.5 MG/0.5 ML SYR IV PRN (01:00)
[2017-09-16] MEDS ORDERED: HEPARIN 25000 UNIT/500 ML D5W ONE (01:01)
[2017-09-16] MEDS ORDERED: HEPARIN 25000 UNIT/ D5W 500 ML (PHARMACY PREPARED) IV PRN ×2 (01:30)
--- NOTE | 2017-09-16 01:50 | History and Physical ---
History & Physical Date & Time of Service: Sep 16, 2017 at 01:10 Chief Complaint: SOB Primary Care Physician: RV. Mcmahon MD History of Present Illness Source: patient 26 y/o F Hx stage IV andrenocortical CA, chronic anemia. Presents with SOB and central CP with pleuritic component. She additionally suffers form chronic and worsening abdominal distention, poor PO intake over the past month and chronic profound lower extremity edema. A CTA chest/abdomen/pelvis was obtained in the ER revealing active metastatic disease, RLL segmental PE and possible thrombus in the IVC. Labs are notable for stable anemia and mild HAWA. The pt was initially diagnosed with Adrenal CA 12/20. She underwent resection of the original lesion and then required additional surgery necessitating a R nephrectomy. She was treated with various chemotherapy modalities through summer 2016 and on August 23 received Keytruda as part of a trial with [facility]. Thus far treatment has not been effective. Past Medical/Surgical History 1) Stage IV adrenal cortical carcinoma 2) Lower extremity edema owing to tumor compression of vascular structures 3) Chronic anemia Family History Breast cancer Diabetes mellitus FH: heart disease Social History Smoking Status: Never Smoker Drug Use: none Marital Status: , in relationship Housing status: lives with family Occupational Status: employed Immunizations History of Influenza Vaccine: Yes Influenza Vaccine Date: Oct 27, 2015 History of Tetanus Vaccine?: Yes Tetanus Immunization Date: Jan 25, 2013 History of Pneumococcal: No History of Hepatitis B Vaccine: No Allergies Coded Allergies: Ibuprofen (Verified Allergy, Severe, LIPS SWELL, HIVES, 09/15/17) Home Medications Scheduled Fentanyl (Fentanyl), 25 MCG TD CQ72HR Furosemide (Lasix), 20 MG PO DAILY Spironolactone (Aldactone), 25 MG PO DAILY Zolpidem Tartrate (Ambien), 5 MG PO HS Scheduled PRN Docusate Sodium (Colace), 200 MG PO DAILY PRN for Constipation Oxycodone Ir (Roxicodone Ir), 1-2 TAB PO Q6H PRN for Severe Pain Polyethylene Glycol 3350 (Miralax), 17 GM PO DAILY PRN for Constipation Physical Exam Vital Signs Date Time Temp Pulse Resp B/P (MAP) Pulse Ox O2 Delivery O2 Flow Rate FiO2 09/16/17 00:55 75 16 141/103 95 Room Air 09/16/17 00:54 76 09/15/17 23:31 78 20 128/92 97 Room Air 09/15/17 22:40 87 18 140/92 94 Room Air 09/15/17 21:36 95 09/15/17 21:32 96 09/15/17 21:32 96 Room Air 09/15/17 21:15 36.6 130 22 132/97 97 Room Air General Appearance: WD/WN, no apparent distress Head: normocephalic Eyes: normal inspection, EOMI ENT: normal ENT inspection, pharynx normal Neck: supple, no JVD Respiratory/Chest: chest non-tender, lungs clear, normal breath sounds Cardiovascular: regular rate, rhythm, no edema, no gallop, no murmur Abdomen/GI: non tender, + abnormal bowel sounds, + distended Back: normal inspection, no CVA tenderness, no muscle spasm Extremities/Musculoskelatal: + pedal edema (B/L profound lower extremity edema) Neurologic/Psych: stone sawyer II-XII nml as tested, no motor/sensory deficits, alert, oriented x 3 Skin: normal color, warm/dry Diagnostics Laboratory Results Results Past 24 Hours Test 09/15/17 22:15 09/15/17 22:28 09/15/17 22:30 Range/Units White Blood Count 7.73 4.8-10.8 K/uL Red Blood Count 4.21 4.2-5.4 M/uL Hemoglobin 9.3 12.0-16.0 g/dL Hematocrit 30.4 37-47 % Mean Corpuscular Volume 72.2 80-100 fL Mean Corpuscular Hemoglobin 22.1 25-34 pg Mean Corpuscular Hemoglobin Concent 30.6 32-36 g/dl Platelet Count 228 130-400 K/uL Mean Platelet Volume 8.9 7.4-10.4 fL Neutrophils (%) (Auto) 80.7 % Lymphocytes (%) (Auto) 11.3 % Monocytes (%) (Auto) 7.0 % Eosinophils (%) (Auto) 0.0 % Basophils (%) (Auto) 0.1 % Neutrophils # (Auto) 6.24 1.4-6.5 K/uL Lymphocytes # (Auto) 0.87 1.2-3.4 K/uL Monocytes # (Auto) 0.54 0.11-0.59 K/uL Eosinophils # (Auto) 0.00 0-0.5 K/uL Basophils # (Auto) 0.01 0-0.2 K/uL RDW Standard Deviation 55.1 36.4-46.3 fL RDW Coefficient of Variation 21.3 11.5-14.5 % Immature Granulocyte % (Auto) 0.9 % Immature Granulocyte # (Auto) 0.07 0.00-0.02 K/uL Anisocytosis PRESENT Ovalocytes 1+ Prothrombin Time 11.8 9.0-12.0 SECONDS Prothromb Time International Ratio 1.1 0.9-1.1 Activated Partial Thromboplast Time 25.9 21.0-31.0 SECONDS Partial Thromboplastin Ratio 1.0 Sodium Level 140 136-145 mmol/L Potassium Level 3.4 3.5-5.1 mmol/L Chloride Level 100 98-107 mmol/L Carbon Dioxide Level 31 21-32 mmol/L Anion Gap 9.0 3-11 mmol/L Blood Urea Nitrogen 32 7-18 mg/dl Creatinine 1.43 0.60-1.20 mg/dl Est Creatinine Clear Calc Drug Dose 63.7 ml/min Estimated GFR () 58.4 Estimated GFR (Non- 50.4 BUN/Creatinine Ratio 22.2 10-20 Random Glucose 83 70-99 mg/dl Calcium Level 8.6 8.5-10.1 mg/dl Magnesium Level 2.0 1.8-2.4 mg/dl Total Bilirubin 0.7 0.2-1 mg/dl Aspartate Amino Transf (AST/SGOT) 185 15-37 U/L Alanine Aminotransferase (ALT/SGPT) 71 12-78 U/L Alkaline Phosphatase 545 45-117 U/L Total Protein 6.0 6.4-8.2 gm/dl Albumin 1.8 3.4-5.0 gm/dl Globulin 4.2 2.5-4.0 gm/dl Albumin/Globulin Ratio 0.4 0.9-2 Lipase 107 73-393 U/L Bedside Troponin I < 0.030 0-0.045 ng/ml Urine Color DK YELLOW Urine Appearance CLEAR CLEAR Urine pH 6.5 4.5-7.5 Urine Specific [place] 1.023 1.000-1.030 Urine Protein 1+ NEG Urine Glucose (UA) NEG NEG Urine Ketones 1+ NEG Urine Occult Blood NEG NEG Urine Nitrite NEG NEG Urine Bilirubin NEG NEG Urine Urobilinogen POS NEG Urine Leukocyte Esterase SMALL NEG Urine WBC (Auto) 1-5 0-5 /hpf Urine RBC (Auto) 0-4 0-4 /hpf Urine Hyaline Casts (Auto) 5-10 0-5 /lpf Urine Epithelial Cells (Auto) >30 0-5 /lpf Urine Bacteria (Auto) NEG NEG Urine Test NEG NEG Diagnostic Radiology CTA chest/abdomen/pelvis Progressive metastatic disease - increased size of lesion anterior to pancreas RLL segmental PE Possible IVC thrombus Impression Assessment and Plan 26 y/o F Hx stage IV adrenocortical CA, chronic anemia. Presents with SOB and central CP with pleuritic component. She additionally suffers form chronic and worsening abdominal distention, poor PO intake over the past month and chronic profound lower extremity edema. A CTA chest/abdomen/pelvis was obtained in the ER revealing active metastatic disease, RLL segmental PE and possible thrombus in the IVC. Labs are notable for stable anemia and mild HAAW. 1) PE, IVC thrombus may be likely owing to underlying condition - we are pending a LE Doppler. She will be started on IV Heparin and evaluated by her health it specialist AM. The original adrenal lesion was resected making hemorrhage less likely. Brain mets are unusual in this particular CA and she had a normal CT head 07/21 one month ago. The pt is stable and can likely be discharged with appropriate anticoagulation provided no bleeding complications become evident. 2) Abdominal distention - describes chronic satiety and poor PO intake - protein malnutrition is evident on labs. Will add supplements to her diet although it is unclear if this will be of benefit. 3) HAWA - provided with IVF overnight - diuretics are held pending AM reevaluation. 4) Adrenal CA - she does not have additional therapy planned at present. She follows locally and with [facility] as well. We have consulted her health it specialist. DNR per pt request - full dose Heparin Total time for this admit including review of labs, meds, imaging - discussion with pt and ER attending - 38 min Level of Care Med/Surg Resuscitation Status DO NOT RESUSCITATE VTE Prophylaxis VTE Risk Assessment Done? Y/N: Yes Risk Level: High Given or contraindicated: Other Anticoagulation
[2017-09-16] MEDS ORDERED: IV FLUIDS COMPLETED PRN (03:30)
--- NOTE | 2017-09-16 06:52 | DIAGNOSTIC IMAGING REPORT ---
CT ABD/PELVIS IV CONTRAST ONLY CLINICAL HISTORY: Increasing abdominal pain and swelling. History of metastatic carcinoma. COMPARISON STUDY: 08/26/2017 TECHNIQUE: Following the IV administration of 92 mL of Optiray-320, CT scan of the abdomen and pelvis was performed from the lung bases to the proximal femurs. Images are reviewed in the axial, sagittal, and coronal planes. IV contrast was administered without complication. A dose lowering technique was utilized adhering to the principles of ALARA. CT DOSE: 642.43 mGy.cm FINDINGS: Lower chest: There are multiple bilateral pulmonary nodules. An index left lower lobe pulmonary nodule measures 18 mm. This previously measured 21 mm. Index right lower lobe pulmonary nodule measures 12 mm. This previously measured 13 mm. Liver: There are multiple space-occupying hepatic masses. The index central mass measures 15 cm in diameter. This remains essentially unchanged from the preceding study. Gallbladder: Presumed surgically absent Spleen: Normal in size and attenuation. Pancreas: Unremarkable. Adrenal glands: The right adrenal gland is surgically absent. No left adrenal masses are visualized. Kidneys: The right kidney is surgically absent. No left renal masses are visualized. Bowel: There are no transition zone to indicate bowel obstruction. Peritoneum: There is a small amount of ascites present. No free air is visualized. There are multiple peritoneal nodules. The index nodule located between the stomach and spleen currently measures 5.7 cm. This remains essentially unchanged in size. There is a large central mass located between the stomach and pancreas. This measures 89 mm in diameter. This producing measured 82 mm in diameter. Vasculature: The abdominal aorta is normal in course and caliber. Adenopathy: There is a stable enlarged retrocaval lymph node measuring 20 mm. Pelvic viscera: The bladder, and pelvic viscera are unremarkable. Skeletal structures: No destructive osseous lesions are seen. IMPRESSION: 1. Persistent extensive metastatic disease. Multiple bilateral pulmonary nodules, slightly diminished in size compared the preceding study. Multiple large hepatic masses, relatively similar in size to the preceding study. Multiple peritoneal nodules. The large central mesenteric mass is increased slightly when compared the preceding study. Low volume ascites. Electronically signed by: Taras Armstrong M.D. 09/16/2017 6:51 AM Dictated Date/Time: 09/16/2017 6:41 AM
[2017-09-16 07:20] LABS: HEMATOCRIT 28.9 % (37-47); MEAN CELL VOLUME 72.6 fL (80-100); MEAN CORPUSCULAR HEMOGLOBIN 22.4 pg (25-34); MEAN CORPUSCULAR HGB CONC 30.8 g/dl (32-36); MEAN PLATELET VOLUME 8.8 fL (7.4-10.4); PLATELET COUNT 193 K/uL (130-400); RED BLOOD COUNT 3.98 M/uL (4.2-5.4); WHITE BLOOD COUNT 7.23 K/uL (4.8-10.8)
[2017-09-16] MEDS: CHECK FENTANYL PATCH PLACEMENT SCH ×3 (07:25→23:36)
--- NOTE | 2017-09-16 07:35 | DIAGNOSTIC IMAGING REPORT ---
CHEST CTA for PULMONARY ARTERIES CT DOSE: HISTORY: Short of breath. TECHNIQUE: Multiaxial CT images of the chest were performed following the intravenous administration of contrast to evaluate the pulmonary arteries. Maximal intensity projection images were also obtained. A dose lowering technique was utilized adhering to the principles of ALARA. COMPARISON STUDY: Chest CTA 07/29/2017. FINDINGS: There is a normal caliber thoracic aorta with no evidence for dissection. Small filling defects seen within the subsegmental branches of the right lower lobe best seen on images 88 through 79. This is new from the prior study is consistent with a pulmonary embolus. Left Port-A-Cath terminates at the superior cavoatrial junction. Large hepatic masses are again noted. These have likely increased in size. Right paratracheal lymph nodes have slightly decreased in size. No pleural effusions. No pneumothorax. Multiple bilateral pulmonary nodules are similar compared to the prior study. Dominant nodule within the left lower lobe measures 1.7 cm. No new focal lung consolidations to suggest pneumonia. IMPRESSION: 1. Small filling defects seen within a subsegmental branch of the right lower lobe pulmonary artery consistent with pulmonary embolus. 2. No significant change in the multiple bilateral pulmonary nodules consistent with metastatic disease. 3. Slight decrease in size in the right paratracheal lymphadenopathy. 4. Interval increase in size in the hepatic metastatic lesions. Electronically signed by: Cruz Padilla M.D. 09/16/2017 7:33 AM Dictated Date/Time: 09/16/2017 7:25 AM
[2017-09-16 07:39] LABS: PARTIAL THROMBOPLASTIN RATIO 1.8
--- NOTE | 2017-09-16 07:42 | DIAGNOSTIC IMAGING REPORT ---
VENOUS DOPPLER LWR EXT BILA CLINICAL HISTORY: 26 years-old Female presenting with dvt. TECHNIQUE: Real-time grayscale and color and spectral Doppler ultrasound imaging of the veins of the bilateral lower extremities was performed. Compression and augmentation were also utilized. COMPARISON: 08/26/2017. FINDINGS: Right: Common femoral vein: Patent. Femoral vein: Patent. Greater saphenous vein: Patent. Popliteal vein: Patent. Calf veins: Limited visualization secondary to subcutaneous edema. Left: Common femoral vein: Patent. Femoral vein: Patent. Greater saphenous vein: Patent. Popliteal vein: Patent. Calf veins: Limited visualization secondary to subcutaneous edema. Other: None. IMPRESSION: No evidence of deep venous thrombosis. Electronically signed by: Vin Hernandez M.D. 09/16/2017 7:41 AM Dictated Date/Time: 09/16/2017 7:40 AM
[2017-09-16 07:48] LABS: CALCIUM 8.3 mg/dl (8.5-10.1); CREATININE 1.39 mg/dl (0.60-1.20); MAGNESIUM 2.1 mg/dl (1.8-2.4); POTASSIUM 3.5 mmol/L (3.5-5.1)
[2017-09-16] MEDS ORDERED: SPIRONOLACTONE 25 MG TAB PO SCH (09:00)
[2017-09-16] MEDS ORDERED: FUROSEMIDE 20 MG TAB PO SCH (09:00)
[2017-09-16] MEDS: BOOST VANILLA PO SCH ×6 (09:13→21:49)
[2017-09-16] MEDS ORDERED: IRON SUCROSE INJ 300 MG in SODIUM CHLORIDE 0.9% 100ML 100 ML IV ONE (10:00)
--- NOTE | 2017-09-16 10:38 | Family Medicine Progress Note ---
Progress Note Date of Service Sep 16, 2017. Subjective Pt evaluation today including: conversation w/ patient, conversation w/ family , physical exam, chart review, lab review Pt is complaining of abdominal discomfort. Describes distension and difficulty breathing intraabdominal pressure. Pt denies SOB, fevers, cough or hemoptysis. Constitutional: No fever, No chills, No sweats Respiratory: No cough, No sputum, No wheezing, No hemoptysis Cardiovascular: + chest pain, No orthopnea, No edema, No palpitations Abdomen: + pain, No nausea, No vomiting, No diarrhea Medications Current Inpatient Medications Medications (Trade) Dose Ordered Sig/Karlos Route Start Time Stop Time Status Last Admin Dose Admin Ioversol (Optiray 320) 100 ml UD PRN IV 09/15/17 22:30 09/19/17 22:29 Acetaminophen (Tylenol Tab) 650 mg Q4H PRN PO 09/16/17 00:45 10/16/17 00:44 Al Hydrox/Mg Hydrox/Simethicone (Maalox Max Susp) 15 ml Q4H PRN PO 09/16/17 00:45 10/16/17 00:44 Magnesium Hydroxide (Milk Of Magnesia Susp) 30 ml Q12H PRN PO 09/16/17 00:45 10/16/17 00:44 Zolpidem Tartrate (Ambien Tab) 5 mg HSZ PRN PO 09/16/17 00:45 10/16/17 00:44 Ondansetron HCl (Zofran Inj) 4 mg Q6H PRN IV 09/16/17 00:45 10/16/17 00:44 Polyethylene (Miralax Powder Packet) 17 gm DAILY PRN PO 09/16/17 00:45 10/16/17 00:44 Enteral Nutritional Formula (Boost) 1 can TID PO 09/16/17 09:00 10/16/17 08:59 09/16/17 09:13 1 CAN Potassium Chloride/Dextrose/ Sod Cl 1,000 ml @ 100 mls/hr Q10H IV 09/16/17 01:00 09/16/17 10:59 09/16/17 04:20 100 MLS/HR Fentanyl (Duragesic Patch) 25 mcg Q72H TD 09/18/17 08:00 10/02/17 07:59 Oxycodone HCl (Roxicodone Immediate Rel Tab) 10 mg Q6H PRN PO 09/16/17 01:00 09/30/17 00:59 Hydromorphone HCl (Dilaudid Inj) 0.5 mg Q3H PRN IV 09/16/17 01:00 09/30/17 00:59 Heparin Sodium (Porcine) 78190 unit/Dextrose 500 ml @ 24 mls/hr [id number] PRN IV 09/16/17 01:30 10/16/17 01:29 Miscellaneous (Fentanyl Patch Remove & Waste) 1 ea Q72H N/A 09/18/17 07:59 10/18/17 07:58 Miscellaneous Information (Check Fentanyl Patch Placement) 1 ea QS N/A 09/16/17 08:00 10/16/17 07:59 09/16/17 07:25 1 EA Miscellaneous (Iv Fluids Completed) 1 ea PRN PRN N/A 09/16/17 03:30 09/16/18 03:29 Iron Sucrose 300 mg/Sodium Chloride 115 ml @ 76.667 mls/ hr TODAY@1000 ONCE IV 09/16/17 10:00 09/16/17 11:29 09/16/17 10:25 76.667 MLS/HR Objective Vital Signs Date Time Temp Pulse Resp B/P (MAP) Pulse Ox O2 Delivery O2 Flow Rate FiO2 09/16/17 08:44 96 Room Air 09/16/17 07:38 36.6 111 16 147/108 (121) 96 Room Air 09/16/17 04:49 36.8 90 17 125/92 (103) 97 Room Air 09/16/17 04:00 Room Air 09/16/17 01:40 36.9 85 20 148/111 98 Room Air 09/16/17 01:23 66 18 138/101 97 Room Air 09/16/17 00:55 75 16 141/103 95 Room Air 09/16/17 00:54 76 09/15/17 23:31 78 20 128/92 97 Room Air 09/15/17 22:40 87 18 140/92 94 Room Air 09/15/17 21:36 95 09/15/17 21:32 96 09/15/17 21:32 96 Room Air 09/15/17 21:15 36.6 130 22 132/97 97 Room Air Physical Exam General Appearance: WD/WN, no apparent distress Neck: supple, no adenopathy Respiratory/Chest: chest non-tender, lungs clear, normal breath sounds, no respiratory distress, no accessory muscle use Cardiovascular: regular rate, rhythm, no edema, no gallop, no JVD Abdomen: non tender, + distended Neurologic/Psychiatric: alert, normal mood/affect, oriented x 3 Skin: normal color, warm/dry, no rash Laboratory Results 09/16/17 07:05 09/16/17 07:05 Test 09/15/17 22:15 09/15/17 22:28 09/15/17 22:30 09/16/17 07:05 Immature Granulocyte % (Auto) 0.9 % White Blood Count 7.73 K/uL (4.8-10.8) Red Blood Count 4.21 M/uL (4.2-5.4) 3.98 M/uL (4.2-5.4) Hemoglobin 9.3 g/dL (12.0-16.0) Hematocrit 30.4 % (37-47) Mean Corpuscular Volume 72.2 fL (80-100) 72.6 fL (80-100) Mean Corpuscular Hemoglobin 22.1 pg (25-34) 22.4 pg (25-34) Mean Corpuscular Hemoglobin Concent 30.6 g/dl (32-36) 30.8 g/dl (32-36) Platelet Count 228 K/uL (130-400) Mean Platelet Volume 8.9 fL (7.4-10.4) 8.8 fL (7.4-10.4) Neutrophils (%) (Auto) 80.7 % Lymphocytes (%) (Auto) 11.3 % Monocytes (%) (Auto) 7.0 % Eosinophils (%) (Auto) 0.0 % Basophils (%) (Auto) 0.1 % Neutrophils # (Auto) 6.24 K/uL (1.4-6.5) Lymphocytes # (Auto) 0.87 K/uL (1.2-3.4) Monocytes # (Auto) 0.54 K/uL (0.11-0.59) Eosinophils # (Auto) 0.00 K/uL (0-0.5) Basophils # (Auto) 0.01 K/uL (0-0.2) Immature Granulocyte # (Auto) 0.07 K/uL (0.00-0.02) Anisocytosis PRESENT Ovalocytes 1+ Prothrombin Time 11.8 SECONDS (9.0-12.0) Prothromb Time International Ratio 1.1 (0.9-1.1) Total Bilirubin 0.7 mg/dl (0.2-1) Aspartate Amino Transf (AST/SGOT) 185 U/L (15-37) Alanine Aminotransferase (ALT/SGPT) 71 U/L (12-78) Alkaline Phosphatase 545 U/L (45-117) Total Protein 6.0 gm/dl (6.4-8.2) Albumin 1.8 gm/dl (3.4-5.0) Globulin 4.2 gm/dl (2.5-4.0) Albumin/Globulin Ratio 0.4 (0.9-2) Lipase 107 U/L (73-393) Bedside Troponin I < 0.030 ng/ml (0-0.045) Urine Color DK YELLOW Urine Appearance CLEAR (CLEAR) Urine pH 6.5 (4.5-7.5) Urine Specific [place] 1.023 (1.000-1.030) Urine Protein 1+ (NEG) Urine Glucose (UA) NEG (NEG) Urine Ketones 1+ (NEG) Urine Occult Blood NEG (NEG) Urine Nitrite NEG (NEG) Urine Bilirubin NEG (NEG) Urine Urobilinogen POS (NEG) Urine Leukocyte Esterase SMALL (NEG) Urine WBC (Auto) 1-5 /hpf (0-5) Urine RBC (Auto) 0-4 /hpf (0-4) Urine Hyaline Casts (Auto) 5-10 /lpf (0-5) Urine Epithelial Cells (Auto) >30 /lpf (0-5) Urine Bacteria (Auto) NEG (NEG) Urine Test NEG (NEG) RDW Standard Deviation 56.1 fL (36.4-46.3) RDW Coefficient of Variation 21.5 % (11.5-14.5) Activated Partial Thromboplast Time 47.6 SECONDS (21.0-31.0) Partial Thromboplastin Ratio 1.8 Anion Gap 9.0 mmol/L (3-11) Est Creatinine Clear Calc Drug Dose 65.4 ml/min Estimated GFR () 60.5 Estimated GFR (Non- 52.2 BUN/Creatinine Ratio 21.0 (10-20) Calcium Level 8.3 mg/dl (8.5-10.1) Magnesium Level 2.1 mg/dl (1.8-2.4) Assessment and Plan 26, PMHX significant for metastatic adrenocortical carcinoma. Presents with SOB , substernal and pleuritic chest pain PE -IV heparin -will need halfway anticoagulation -LE extremity Doppler-no evidence of DVT Adrenocortical cancer, stage 4 -Pt no longer undergoing treatment -Pt in process of transitioning to hospice/palliative care but not ready to pursue right now. Abdominal distension/ fluid retention/LE edema -Continuing patients Lasix and Aldactone Anemia/fatigue -Fe infusions administered Reviewed: Pt Seen/Exam by Me History no chest pain, shortness of breath. Constitutional: denies: fever Respiratory: negative: short of breath Cardiovascular: denies chest pain Gastrointestinal/Abdominal: negative: abdominal pain General Appearance: no apparent distress Respiratory: lungs clear, no respiratory distress Cardiovascular: regular rate, rhythm Gastrointestinal: normal bowel sounds, non tender, soft, mass Neurologic/Psychiatric: alert, oriented x 3 Skin Characteristics: warm/dry Assessment/Plan Resident Physician Supervision Note: I independently interviewed and examined the patient and verified the castro history and physical, reviewed labs and image studies, discussed the case with the resident Dr. Sanz and agree with the findings and care plan.
--- NOTE | 2017-09-16 12:43 | Oncology Consultation ---
Oncology/Heme Consultation Date of Consultation: Sep 16, 2017. Attending Physician: Paty Thomas M.D. Reason for Consultation: Metastatic adrenalcortical carcinoma History of Present Illness Ms. Granado is a 26 year old woman with metastatic adrenocortical carcinoma who has unfortunately progressed through all standard therapy. She was most recently treated on a clinical trial at [facility] using immunotherapy. It appears she did not have much of a response and had discussed hospice care with her physicians there at her last visit. She presented to [facility] yesterday with a variety of complaints attributable to her disease, including shortness of breath , increasing pain, abdominal distention, poor oral intake, and edema. She had scans which reveal PEs and possible thrombus in her IVC. She is on heparin for the VTE and has had changes made in her narcotics. She reports being comfortable today. Her pain is better controlled and she has no nausea or vomiting. She is fearful about the future but is comfortable with the decision to transition to hospice. Past Medical/Surgical History Medical Problems: (1) Acute pulmonary embolism Status: Acute (2) Adrenal mass, right Status: Acute (3) Anemia Status: Acute (4) Back pain Status: Acute (5) Fecal retention Status: Acute (6) Headache Status: Acute (7) Intractable abdominal pain Status: Acute (8) Metastasis from adrenal cancer Status: Acute (9) Metastatic cancer Status: Acute (10) Metastatic cancer Status: Acute (11) Metastatic cancer of adrenal glands Status: Acute (12) Right sided abdominal pain Status: Acute Family History Breast cancer Diabetes mellitus FH: heart disease Social History Smoking Status: Never Smoker Drug Use: none Marital Status: , in relationship Housing Status: lives with family Occupation Status: employed Allergies Coded Allergies: Ibuprofen (Verified Allergy, Severe, LIPS SWELL, HIVES, 09/15/17) Home Medications Scheduled Fentanyl (Fentanyl), 25 MCG TD [id number] Furosemide (Lasix), 20 MG PO DAILY Spironolactone (Aldactone), 25 MG PO DAILY Zolpidem Tartrate (Ambien), 5 MG PO HS Scheduled PRN Docusate Sodium (Colace), 200 MG PO DAILY PRN for Constipation Oxycodone Ir (Roxicodone Ir), 1-2 TAB PO Q6H PRN for Severe Pain Polyethylene Glycol 3350 (Miralax), 17 GM PO DAILY PRN for Constipation Current Inpatient Medications Current Inpatient Medications Medications (Trade) Dose Ordered Sig/Karlos Route Start Time Stop Time Status Last Admin Dose Admin Ioversol (Optiray 320) 100 ml UD PRN IV 09/15/17 22:30 09/19/17 22:29 Acetaminophen (Tylenol Tab) 650 mg Q4H PRN PO 09/16/17 00:45 10/16/17 00:44 Al Hydrox/Mg Hydrox/Simethicone (Maalox Max Susp) 15 ml Q4H PRN PO 09/16/17 00:45 10/16/17 00:44 Magnesium Hydroxide (Milk Of Magnesia Susp) 30 ml Q12H PRN PO 09/16/17 00:45 10/16/17 00:44 Zolpidem Tartrate (Ambien Tab) 5 mg HSZ PRN PO 09/16/17 00:45 10/16/17 00:44 Ondansetron HCl (Zofran Inj) 4 mg Q6H PRN IV 09/16/17 00:45 10/16/17 00:44 Polyethylene (Miralax Powder Packet) 17 gm DAILY PRN PO 09/16/17 00:45 10/16/17 00:44 Enteral Nutritional Formula (Boost) 1 can TID PO 09/16/17 09:00 10/16/17 08:59 09/16/17 09:13 1 CAN Fentanyl (Duragesic Patch) 25 mcg Q72H TD 09/18/17 08:00 10/02/17 07:59 Oxycodone HCl (Roxicodone Immediate Rel Tab) 10 mg Q6H PRN PO 09/16/17 01:00 09/30/17 00:59 Hydromorphone HCl (Dilaudid Inj) 0.5 mg Q3H PRN IV 09/16/17 01:00 09/30/17 00:59 Heparin Sodium (Porcine) 59406 unit/Dextrose 500 ml @ 24 mls/hr [id number] PRN IV 09/16/17 01:30 10/16/17 01:29 Miscellaneous (Fentanyl Patch Remove & Waste) 1 ea Q72H N/A 09/18/17 07:59 10/18/17 07:58 Miscellaneous Information (Check Fentanyl Patch Placement) 1 ea QS N/A 09/16/17 08:00 10/16/17 07:59 09/16/17 07:25 1 EA Miscellaneous (Iv Fluids Completed) 1 ea PRN PRN N/A 09/16/17 03:30 09/16/18 03:29 Review of Systems Constitutional: + weight loss, + weakness, + fatigue, No fever, No chills Respiratory: + shortness of breath Cardiovascular: No chest pain Abdomen: No pain, No nausea Musculoskeletal: No joint pain, No muscle pain Hematologic / Lymphatic: No abnormal bleeding/bruising, No night sweats Physical Exam Date Time Temp Pulse Resp B/P (MAP) Pulse Ox O2 Delivery O2 Flow Rate FiO2 09/16/17 12:03 96 Room Air 09/16/17 11:20 36.7 100 16 134/97 (109) 96 Room Air 09/16/17 08:44 96 Room Air 09/16/17 07:38 36.6 111 16 147/108 (121) 96 Room Air 09/16/17 04:49 36.8 90 17 125/92 (103) 97 Room Air 09/16/17 04:00 Room Air 09/16/17 01:40 36.9 85 20 148/111 98 Room Air 09/16/17 01:23 66 18 138/101 97 Room Air 09/16/17 00:55 75 16 141/103 95 Room Air 09/16/17 00:54 76 09/15/17 23:31 78 20 128/92 97 Room Air 09/15/17 22:40 87 18 140/92 94 Room Air 09/15/17 21:36 95 09/15/17 21:32 96 09/15/17 21:32 96 Room Air 09/15/17 21:15 36.6 130 22 132/97 97 Room Air General Appearance: no apparent distress, + pertinent finding (chronically ill- appearing) Eyes: EOMI ENT: pharynx normal (mucous membranes moist) Respiratory/Chest: lungs clear Cardiovascular: regular rate, rhythm Abdomen/GI: non tender, soft, + distended Extremities/Musculoskelatal: + pedal edema Neurologic/Psych: alert, oriented x 3 Laboratory Results Last 24 Hours Test 09/15/17 22:15 09/15/17 22:28 09/15/17 22:30 09/16/17 07:05 White Blood Count 7.73 K/uL 7.23 K/uL Red Blood Count 4.21 M/uL 3.98 M/uL Hemoglobin 9.3 g/dL 8.9 g/dL Hematocrit 30.4 % 28.9 % Mean Corpuscular Volume 72.2 fL 72.6 fL Mean Corpuscular Hemoglobin 22.1 pg 22.4 pg Mean Corpuscular Hemoglobin Concent 30.6 g/dl 30.8 g/dl Platelet Count 228 K/uL 193 K/uL Mean Platelet Volume 8.9 fL 8.8 fL Neutrophils (%) (Auto) 80.7 % Lymphocytes (%) (Auto) 11.3 % Monocytes (%) (Auto) 7.0 % Eosinophils (%) (Auto) 0.0 % Basophils (%) (Auto) 0.1 % Neutrophils # (Auto) 6.24 K/uL Lymphocytes # (Auto) 0.87 K/uL Monocytes # (Auto) 0.54 K/uL Eosinophils # (Auto) 0.00 K/uL Basophils # (Auto) 0.01 K/uL RDW Standard Deviation 55.1 fL 56.1 fL RDW Coefficient of Variation 21.3 % 21.5 % Immature Granulocyte % (Auto) 0.9 % Immature Granulocyte # (Auto) 0.07 K/uL Anisocytosis PRESENT Ovalocytes 1+ Prothrombin Time 11.8 SECONDS Prothromb Time International Ratio 1.1 Activated Partial Thromboplast Time 25.9 SECONDS 47.6 SECONDS Partial Thromboplastin Ratio 1.0 1.8 Sodium Level 140 mmol/L 139 mmol/L Potassium Level 3.4 mmol/L 3.5 mmol/L Chloride Level 100 mmol/L 101 mmol/L Carbon Dioxide Level 31 mmol/L 29 mmol/L Anion Gap 9.0 mmol/L 9.0 mmol/L Blood Urea Nitrogen 32 mg/dl 29 mg/dl Creatinine 1.43 mg/dl 1.39 mg/dl Est Creatinine Clear Calc Drug Dose 63.7 ml/min 65.4 ml/min Estimated GFR () 58.4 60.5 Estimated GFR (Non- 50.4 52.2 BUN/Creatinine Ratio 22.2 21.0 Random Glucose 83 mg/dl 111 mg/dl Calcium Level 8.6 mg/dl 8.3 mg/dl Magnesium Level 2.0 mg/dl 2.1 mg/dl Total Bilirubin 0.7 mg/dl Aspartate Amino Transf (AST/SGOT) 185 U/L Alanine Aminotransferase (ALT/SGPT) 71 U/L Alkaline Phosphatase 545 U/L Total Protein 6.0 gm/dl Albumin 1.8 gm/dl Globulin 4.2 gm/dl Albumin/Globulin Ratio 0.4 Lipase 107 U/L Bedside Troponin I < 0.030 ng/ml Urine Color DK YELLOW Urine Appearance CLEAR Urine pH 6.5 Urine Specific [place] 1.023 Urine Protein 1+ Urine Glucose (UA) NEG Urine Ketones 1+ Urine Occult Blood NEG Urine Nitrite NEG Urine Bilirubin NEG Urine Urobilinogen POS Urine Leukocyte Esterase SMALL Urine WBC (Auto) 1-5 /hpf Urine RBC (Auto) 0-4 /hpf Urine Hyaline Casts (Auto) 5-10 /lpf Urine Epithelial Cells (Auto) >30 /lpf Urine Bacteria (Auto) NEG Urine Test NEG Assessment & Plan Ms. Granado has treatment-refractory metastatic adrenocortical carcinoma. She presents with symptoms related to progressive disease and is facing a very short life expectancy. At her last visit at [facility], she opted for hospice care. We should help make arrangements for her today. Please consult palliative care to plan her hospice. In the meantime, I would continue with aggressive supportive care as needed. Anticoagulation is also reasonable as a palliative measure, though I would hold it if she develops any bleeding.
--- NOTE | 2017-09-16 13:19 | Medical Student: [facility] ---
Med Student History & Physical Date & Time of Service: Sep 16, 2017 at 12:59 Chief Complaint: Ivc Thrombosis,Pulmonary Embolism Primary Care Physician: RV. Mcmahon MD History of Present Illness Source: patient, parent, spouse, EMS Doug is a 26 yo female with history of stage 4 adrenocortical carcinoma diagnosed early in 2016 non-responsive to therapy and with peritoneal , hepatic, and pulmonary metastases who presents with shortness of breath, pleuritic chest pain and tachycardia. She has chronic lower extremity edema due to IVC compression from malignancy and was found to have small filling defects in the RLL consistent with pulmonary embolism. There were no DVT's seen on doppler. She is chronically anemic. Past Medical/Surgical History Medical Problems: (1) Acute pulmonary embolism Status: Acute (2) Adrenal mass, right Status: Acute (3) Anemia Status: Acute (4) Back pain Status: Acute (5) Fecal retention Status: Acute (6) Headache Status: Acute (7) Intractable abdominal pain Status: Acute (8) Metastasis from adrenal cancer Status: Acute (9) Metastatic cancer Status: Acute (10) Metastatic cancer Status: Acute (11) Metastatic cancer of adrenal glands Status: Acute (12) Right sided abdominal pain Status: Acute Social History Smoking Status: Never Smoker Drug Use: none Marital Status: , in relationship Housing status: lives with family Occupational Status: employed Immunizations History of Influenza Vaccine: Yes Influenza Vaccine Date: Oct 27, 2015 History of Tetanus Vaccine?: Yes Tetanus Immunization Date: Jan 25, 2013 History of Pneumococcal: No History of Hepatitis B Vaccine: No Allergies Coded Allergies: Ibuprofen (Verified Allergy, Severe, LIPS SWELL, HIVES, 09/15/17) Medications Docusate Sodium (Colace), 200 MG PO DAILY PRN for Constipation Fentanyl (Fentanyl), 25 MCG TD [id number] Furosemide (Lasix), 20 MG PO DAILY Oxycodone Ir (Roxicodone Ir), 1-2 TAB PO Q6H PRN for Severe Pain Polyethylene Glycol 3350 (Miralax), 17 GM PO DAILY PRN for Constipation Spironolactone (Aldactone), 25 MG PO DAILY Zolpidem Tartrate (Ambien), 5 MG PO HS Review of Systems Respiratory: + shortness of breath, No cough, No sputum, No wheezing, No hemoptysis Cardiovascular: + chest pain, + edema, + palpitations Abdomen: + constipation, No pain, No nausea, No vomiting, No GI bleeding Integumentary: + new/changing skin lesions (bruising easily past month or 2) Physical Exam Vital Signs (24 Hours) Date Time Temp Pulse Resp B/P (MAP) Pulse Ox O2 Delivery O2 Flow Rate FiO2 09/16/17 12:03 96 Room Air 09/16/17 11:20 36.7 100 16 134/97 (109) 96 Room Air 09/16/17 08:44 96 Room Air 09/16/17 07:38 36.6 111 16 147/108 (121) 96 Room Air 09/16/17 04:49 36.8 90 17 125/92 (103) 97 Room Air 09/16/17 04:00 Room Air 09/16/17 01:40 36.9 85 20 148/111 98 Room Air 09/16/17 01:23 66 18 138/101 97 Room Air 09/16/17 00:55 75 16 141/103 95 Room Air 09/16/17 00:54 76 09/15/17 23:31 78 20 128/92 97 Room Air 09/15/17 22:40 87 18 140/92 94 Room Air 09/15/17 21:36 95 09/15/17 21:32 96 09/15/17 21:32 96 Room Air 09/15/17 21:15 36.6 130 22 132/97 97 Room Air General Appearance: WD/WN, + mild distress Head: normocephalic, atraumatic ENT: hearing grossly normal Neck: supple, trachea midline Respiratory/Chest: chest non-tender, lungs clear, normal breath sounds, no respiratory distress, no accessory muscle use Cardiovascular: regular rate, rhythm, no gallop, no JVD, no murmur, normal peripheral pulses Abdomen/GI: normal bowel sounds, non tender, soft, no organomegaly, no pulsatile mass, + mass (palpable midline mass superior to umbilicus) Back: no CVA tenderness Extremities/Musculoskelatal: no calf tenderness, + pedal edema (Severe, deep pitting edema to the level of the knee) Neurologic/Psych: alert, normal mood/affect Diagnostics Laboratory Results Results Past 24 Hours Test 09/15/17 22:15 09/15/17 22:28 09/15/17 22:30 09/16/17 07:05 Range/Units White Blood Count 7.73 7.23 4.8-10.8 K/uL Red Blood Count 4.21 3.98 4.2-5.4 M/uL Hemoglobin 9.3 8.9 12.0-16.0 g/dL Hematocrit 30.4 28.9 37-47 % Mean Corpuscular Volume 72.2 72.6 80-100 fL Mean Corpuscular Hemoglobin 22.1 22.4 25-34 pg Mean Corpuscular Hemoglobin Concent 30.6 30.8 32-36 g/dl Platelet Count 228 193 130-400 K/uL Mean Platelet Volume 8.9 8.8 7.4-10.4 fL Neutrophils (%) (Auto) 80.7 % Lymphocytes (%) (Auto) 11.3 % Monocytes (%) (Auto) 7.0 % Eosinophils (%) (Auto) 0.0 % Basophils (%) (Auto) 0.1 % Neutrophils # (Auto) 6.24 1.4-6.5 K/uL Lymphocytes # (Auto) 0.87 1.2-3.4 K/uL Monocytes # (Auto) 0.54 0.11-0.59 K/uL Eosinophils # (Auto) 0.00 0-0.5 K/uL Basophils # (Auto) 0.01 0-0.2 K/uL RDW Standard Deviation 55.1 56.1 36.4-46.3 fL RDW Coefficient of Variation 21.3 21.5 11.5-14.5 % Immature Granulocyte % (Auto) 0.9 % Immature Granulocyte # (Auto) 0.07 0.00-0.02 K/uL Anisocytosis PRESENT Ovalocytes 1+ Prothrombin Time 11.8 9.0-12.0 SECONDS Prothromb Time International Ratio 1.1 0.9-1.1 Activated Partial Thromboplast Time 25.9 47.6 21.0-31.0 SECONDS Partial Thromboplastin Ratio 1.0 1.8 Sodium Level 140 139 136-145 mmol/L Potassium Level 3.4 3.5 3.5-5.1 mmol/L Chloride Level 100 101 98-107 mmol/L Carbon Dioxide Level 31 29 21-32 mmol/L Anion Gap 9.0 9.0 3-11 mmol/L Blood Urea Nitrogen 32 29 7-18 mg/dl Creatinine 1.43 1.39 0.60-1.20 mg/dl Est Creatinine Clear Calc Drug Dose 63.7 65.4 ml/min Estimated GFR () 58.4 60.5 Estimated GFR (Non- 50.4 52.2 BUN/Creatinine Ratio 22.2 21.0 10-20 Random Glucose 83 111 70-99 mg/dl Calcium Level 8.6 8.3 8.5-10.1 mg/dl Magnesium Level 2.0 2.1 1.8-2.4 mg/dl Total Bilirubin 0.7 0.2-1 mg/dl Aspartate Amino Transf (AST/SGOT) 185 15-37 U/L Alanine Aminotransferase (ALT/SGPT) 71 12-78 U/L Alkaline Phosphatase 545 45-117 U/L Total Protein 6.0 6.4-8.2 gm/dl Albumin 1.8 3.4-5.0 gm/dl Globulin 4.2 2.5-4.0 gm/dl Albumin/Globulin Ratio 0.4 0.9-2 Lipase 107 73-393 U/L Bedside Troponin I < 0.030 0-0.045 ng/ml Urine Color DK YELLOW Urine Appearance CLEAR CLEAR Urine pH 6.5 4.5-7.5 Urine Specific [place] 1.023 1.000-1.030 Urine Protein 1+ NEG Urine Glucose (UA) NEG NEG Urine Ketones 1+ NEG Urine Occult Blood NEG NEG Urine Nitrite NEG NEG Urine Bilirubin NEG NEG Urine Urobilinogen POS NEG Urine Leukocyte Esterase SMALL NEG Urine WBC (Auto) 1-5 0-5 /hpf Urine RBC (Auto) 0-4 0-4 /hpf Urine Hyaline Casts (Auto) 5-10 0-5 /lpf Urine Epithelial Cells (Auto) >30 0-5 /lpf Urine Bacteria (Auto) NEG NEG Urine Test NEG NEG Diagnostic Radiology VENOUS DOPPLER LWR EXT BILA CLINICAL HISTORY: 26 years-old Female presenting with dvt. TECHNIQUE: Real-time grayscale and color and spectral Doppler ultrasound imaging of the veins of the bilateral lower extremities was performed. Compression and augmentation were also utilized. COMPARISON: 08/26/2017. FINDINGS: Right: Common femoral vein: Patent. Femoral vein: Patent. Greater saphenous vein: Patent. Popliteal vein: Patent. Calf veins: Limited visualization secondary to subcutaneous edema. Left: Common femoral vein: Patent. Femoral vein: Patent. Greater saphenous vein: Patent. Popliteal vein: Patent. Calf veins: Limited visualization secondary to subcutaneous edema. Other: None. IMPRESSION: No evidence of deep venous thrombosis. Electronically signed by: Vin Hernandez M.D. 09/16/2017 7:[address] ABD/PELVIS IV CONTRAST ONLY CLINICAL HISTORY: Increasing abdominal pain and swelling. History of metastatic carcinoma. COMPARISON STUDY: 08/26/2017 TECHNIQUE: Following the IV administration of 92 mL of Optiray-320, CT scan of the abdomen and pelvis was performed from the lung bases to the proximal femurs. Images are reviewed in the axial, sagittal, and coronal planes. IV contrast was administered without complication. A dose lowering technique was utilized adhering to the principles of ALARA. CT DOSE: 642.43 mGy.cm FINDINGS: Lower chest: There are multiple bilateral pulmonary nodules. An index left lower lobe pulmonary nodule measures 18 mm. This previously measured 21 mm. Index right lower lobe pulmonary nodule measures 12 mm. This previously measured 13 mm. Liver: There are multiple space-occupying hepatic masses. The index central mass measures 15 cm in diameter. This remains essentially unchanged from the preceding study. Gallbladder: Presumed surgically absent Spleen: Normal in size and attenuation. Pancreas: Unremarkable. Adrenal glands: The right adrenal gland is surgically absent. No left adrenal masses are visualized. Kidneys: The right kidney is surgically absent. No left renal masses are visualized. Bowel: There are no transition zone to indicate bowel obstruction. Peritoneum: There is a small amount of ascites present. No free air is visualized. There are multiple peritoneal nodules. The index nodule located between the stomach and spleen currently measures 5.7 cm. This remains essentially unchanged in size. There is a large central mass located between the stomach and pancreas. This measures 89 mm in diameter. This producing measured 82 mm in diameter. Vasculature: The abdominal aorta is normal in course and caliber. Adenopathy: There is a stable enlarged retrocaval lymph node measuring 20 mm. Pelvic viscera: The bladder, and pelvic viscera are unremarkable. Skeletal structures: No destructive osseous lesions are seen. IMPRESSION: 1. Persistent extensive metastatic disease. Multiple bilateral pulmonary nodules, slightly diminished in size compared the preceding study. Multiple large hepatic masses, relatively similar in size to the preceding study. Multiple peritoneal nodules. The large central mesenteric mass is increased slightly when compared the preceding study. Low volume ascites. Electronically signed by: Taras Armstrong M.D. 09/16/2017 6:51 AM CHEST CTA for PULMONARY ARTERIES CT DOSE: HISTORY: Short of breath. TECHNIQUE: Multiaxial CT images of the chest were performed following the intravenous administration of contrast to evaluate the pulmonary arteries. Maximal intensity projection images were also obtained. A dose lowering technique was utilized adhering to the principles of ALARA. COMPARISON STUDY: Chest CTA 07/29/2017. FINDINGS: There is a normal caliber thoracic aorta with no evidence for dissection. Small filling defects seen within the subsegmental branches of the right lower lobe best seen on images 88 through 79. This is new from the prior study is consistent with a pulmonary embolus. Left Port-A-Cath terminates at the superior cavoatrial junction. Large hepatic masses are again noted. These have likely increased in size. Right paratracheal lymph nodes have slightly decreased in size. No pleural effusions. No pneumothorax. Multiple bilateral pulmonary nodules are similar compared to the prior study. Dominant nodule within the left lower lobe measures 1.7 cm. No new focal lung consolidations to suggest pneumonia. IMPRESSION: 1. Small filling defects seen within a subsegmental branch of the right lower lobe pulmonary artery consistent with pulmonary embolus. 2. No significant change in the multiple bilateral pulmonary nodules consistent with metastatic disease. 3. Slight decrease in size in the right paratracheal lymphadenopathy. 4. Interval increase in size in the hepatic metastatic lesions. Electronically signed by: Cruz Padilla M.D. 09/16/2017 7:33 AM Impression Assessment and Plan Doug is a 26 yo female with history of stage 4 adrenocortical carcinoma diagnosed early in 2016 non-responsive to therapy and with peritoneal , hepatic, and pulmonary metastases who presents with shortness of breath, pleuritic chest pain and tachycardia and radiologic findings consistent with pulmonary emboli in the right lower lobe. Pulmonary Embolism: Currently receiving 25k units of heparin IV, asymptomatic, normal platelets, no reaction to heparin at this point. Plan: Continue heparin, plan for transition to Coumadin for 6 months following discharge. Educate patient on signs of bleeding (bloody stools, melena, gum bleeding, etc.) prior to discharge. Stage 4 adrenocortical carcinoma: Being followed by heme/onc, prognosis seems poor given minimal response to therapy and metastases. Planning for hospice care. Plan: Hospice care, palliative care. Follow with heme/onc. Edema: Severe, majority of lower extremities involved. One kidney present, elevated GFR. Curious if her cancer has a mineralocorticoid component and may be causing sodium retention. May consider checking Aldosterone level. Plan: May consider spironolactone, as it may help with any mineralocorticoid component of her carcinoma. Consider compression stockings (has tried in past, and says it felt the fluid went to her abdomen). Elevation of legs. Anemia: Hgb of 8.9 today, asymptomatic. Plan: continue to follow with daily CBC. Consider preparations for transfusion. Advanced Directives Existing Living Will: Yes Existing Power of [place] Hand: Yes DVT Prophylaxis unfractionated heparin SQ (25,000 units IV)
[2017-09-16] MEDS ORDERED: NURSING VERBAL MED ORDER ONE (21:00)
[2017-09-16] MEDS: FLUCONAZOLE 100 MG TAB PO SCH (21:50)
[2017-09-17] VITALS (14 sets, daily range): BP systolic 108–141; BP diastolic 67–108; PULSE 60–122; TEMP 36.2–36.8; O2SAT 93–97
[2017-09-17 06:45] LABS: HEMATOCRIT 28.2 % (37-47); MEAN CELL VOLUME 72.9 fL (80-100); MEAN CORPUSCULAR HEMOGLOBIN 22.7 pg (25-34); MEAN CORPUSCULAR HGB CONC 31.2 g/dl (32-36); MEAN PLATELET VOLUME 8.9 fL (7.4-10.4); PLATELET COUNT 186 K/uL (130-400); RED BLOOD COUNT 3.87 M/uL (4.2-5.4)
[2017-09-17 07:15] LABS: BUN/CREATININE RATIO 19.8 (10-20); CALCIUM 8.3 mg/dl (8.5-10.1); CREATININE 1.32 mg/dl (0.60-1.20); POTASSIUM 3.7 mmol/L (3.5-5.1)
[2017-09-17 07:18] LABS: ALB/GLOB RATIO 0.4 (0.9-2)
[2017-09-17 07:22] LABS: INR 1.2 (0.9-1.1); PROTHROMBIN TIME (PATIENT) 12.7 SECONDS (9.0-12.0)
[2017-09-17 07:40] LABS: PARTIAL THROMBOPLASTIN RATIO 3.8
--- NOTE | 2017-09-17 08:13 | HEME/ONC PROGRESS NOTE ---
DATE: 09/17/2017 DIAGNOSES: 1. Shortness of breath. 2. Anasarca. 3. Hypoalbuminemia. 4. Microcytic anemia. 5. Metastatic adrenal cortical carcinoma. SUBJECTIVE: Doug is a very pleasant, but unfortunate 26-year-old female patient, well known to me with a diagnosis of metastatic adrenal cortical carcinoma. The patient was admitted yesterday with subacute onset shortness of breath. CT of the chest reveals small filling defects seen within a subsegmental branch of the right lower lobe pulmonary artery, consistent with PE. CAT scan of the abdomen and pelvis again reveals disseminated metastatic disease involving the mesentery and liver. Doug has been battling with increasing peripheral edema. Albumin presently 1.5. Pain is relatively well controlled. The patient is tolerating diet, ambulating ad gustavo and moving her bowels. PHYSICAL EXAMINATION: GENERAL: She is in no acute distress. VITAL SIGNS: Temperature 36.8, pulse 66, respirations 16, and blood pressure 114/74. SKIN: Without rash or lesion. HEENT: Oral mucosa without erythema or ulceration. NECK: Supple. HEART: Tachycardic, but regular. LUNGS: Clear to auscultation bilaterally. ABDOMEN: Soft, nontender, and nondistended. EXTREMITIES: 2-3+ peripheral edema. NEUROLOGIC: Grossly intact. LABORATORY DATA: WBC count 7300, hemoglobin 8.8, and platelet count 186,000. Sodium 138, potassium 3.7, chloride 100, carbon dioxide 29, creatinine 1.32, and BUN 26. Alkaline phosphatase 497 and AST 159. Albumin 1.5. PTT 97.6 seconds. IMPRESSION: 1. Pulmonary embolism. 2. Anasarca. 3. Hypoalbuminemia. 4. Microcytic anemia. 5. Metastatic adrenal cortical carcinoma. PLAN: Doug is very pleasant, but unfortunate 26-year-old female patient, well known to [facility]. I was contacted by the patient's on the day prior to admission with subacute onset shortness of breath. She was recommended to come to the Emergency Room and was worked up radiographically. Pulmonary embolism has been confirmed and she currently is receiving unfractionated heparin. I recommend that she be converted to Coumadin to an INR of 2.5-3. I would appreciate consultation with the anticoagulation clinic upon discharge. Doug understands the terminal nature of her disease and has agreed to palliative care consult. Engaged in a lengthy discussion this morning regarding the appropriateness of outpatient hospice care. She has established no code status. In regards to her nutritional status, would place her on appetite stimulant in addition to providing albumin both today and tomorrow intravenously. This may help stabilize her edema. Additionally, a single unit of packed RBCs again for palliative reasons is reasonable at this point. Pain management appears to be adequate at this time. I appreciate the primary hospitalist team assisting me in the care of this very pleasant, but unfortunate young lady. Thank you very much for allowing me to participate in her care. I will continue to follow her periodically during her hospital stay.
[2017-09-17] MEDS: CHECK FENTANYL PATCH PLACEMENT SCH ×2 (08:17→15:31)
[2017-09-17] MEDS: POLYETHYLENE (MIRALAX) 17 GM PACK PO PRN (08:19)
[2017-09-17] MEDS: BOOST VANILLA PO SCH ×6 (08:21→20:15)
[2017-09-17] MEDS ORDERED: ALBUMIN HUMAN 25% 12.5 GM/50 ML VIAL IV ONE (10:30)
[2017-09-17] MEDS: ENOXAPARIN 80 MG/0.8 ML SYR SQ SCH ×2 (10:59→20:16)
--- NOTE | 2017-09-17 14:01 | Family Medicine Progress Note ---
Progress Note Date of Service Sep 17, 2017. Subjective Pt evaluation today including: conversation w/ patient, conversation w/ family , physical exam, chart review, lab review Pt denies chest pain, SOB. Pt describes fatigue. Pt expresses anxiety about palliative care/hospice Constitutional: + fatigue, No fever, No chills, No sweats Respiratory: No cough, No sputum, No wheezing, No shortness of breath, No dyspnea on exertion Cardiovascular: No chest pain, No orthopnea, No palpitations Abdomen: + problem reported (fullness, distension), No pain, No nausea, No vomiting, No diarrhea Medications Current Inpatient Medications Medications (Trade) Dose Ordered Sig/Karlos Route Start Time Stop Time Status Last Admin Dose Admin Ioversol (Optiray 320) 100 ml UD PRN IV 09/15/17 22:30 09/19/17 22:29 Acetaminophen (Tylenol Tab) 650 mg Q4H PRN PO 09/16/17 00:45 10/16/17 00:44 Al Hydrox/Mg Hydrox/Simethicone (Maalox Max Susp) 15 ml Q4H PRN PO 09/16/17 00:45 10/16/17 00:44 Magnesium Hydroxide (Milk Of Magnesia Susp) 30 ml Q12H PRN PO 09/16/17 00:45 10/16/17 00:44 Zolpidem Tartrate (Ambien Tab) 5 mg HSZ PRN PO 09/16/17 00:45 10/16/17 00:44 Ondansetron HCl (Zofran Inj) 4 mg Q6H PRN IV 09/16/17 00:45 10/16/17 00:44 Polyethylene (Miralax Powder Packet) 17 gm DAILY PRN PO 09/16/17 00:45 10/16/17 00:44 09/17/17 08:19 17 GM Enteral Nutritional Formula (Boost) 1 can TID PO 09/16/17 09:00 10/16/17 08:59 09/17/17 08:21 1 CAN Fentanyl (Duragesic Patch) 25 mcg Q72H TD 09/18/17 08:00 10/02/17 07:59 Miscellaneous (Fentanyl Patch Remove & Waste) 1 ea Q72H N/A 09/18/17 07:59 10/18/17 07:58 Miscellaneous Information (Check Fentanyl Patch Placement) 1 ea QS N/A 09/16/17 08:00 10/16/17 07:59 09/17/17 08:17 1 EA Miscellaneous (Iv Fluids Completed) 1 ea PRN PRN N/A 09/16/17 03:30 09/16/18 03:29 Fluconazole (Diflucan Tab) 200 mg DAILY@2100 PO 09/16/17 21:00 09/19/17 21:01 09/16/17 21:50 200 MG Heparin Sodium (Porcine) (Heparin 100 Unit/ml 5ml Flush) 5 ml PRN PRN IV 09/17/17 00:45 10/17/17 00:44 Oxycodone HCl (Roxicodone Immediate Rel Tab) @ Q4H PRN PO 09/17/17 10:15 10/01/17 10:14 Bisacodyl (Dulcolax Tab) 5 mg BID PRN PO 09/17/17 10:30 10/17/17 10:29 Lactulose (Chronulac Syrup) 30 gm TID PRN PO 09/17/17 10:30 10/17/17 10:29 Buspirone HCl (Buspar Tab) 5 mg TID PRN PO 09/17/17 10:30 10/17/17 10:29 Enoxaparin Sodium (Lovenox Inj) 80 mg Q12 SQ 09/17/17 10:30 10/17/17 10:29 09/17/17 10:59 80 MG Objective Vital Signs Date Time Temp Pulse Resp B/P (MAP) Pulse Ox O2 Delivery O2 Flow Rate FiO2 09/17/17 13:40 36.3 74 16 119/86 96 09/17/17 13:15 36.3 76 18 115/82 96 09/17/17 13:01 36.3 97 20 108/67 95 09/17/17 12:00 Room Air 09/17/17 11:50 36.5 103 16 131/99 (110) 94 Room Air 09/17/17 08:01 36.3 122 22 132/108 (116) 96 09/17/17 08:00 Room Air 09/17/17 04:27 36.8 66 16 114/74 (87) 95 Room Air 09/17/17 04:00 Room Air 09/17/17 00:00 96 Room Air 09/17/17 00:00 36.2 66 116/68 (84) 96 Room Air 09/16/17 20:00 95 Room Air 09/16/17 19:17 36.6 74 16 123/91 (102) 95 Room Air 09/16/17 16:08 96 Room Air 09/16/17 15:41 36.7 103 18 145/109 (121) 96 Room Air Physical Exam General Appearance: WD/WN, no apparent distress Respiratory/Chest: chest non-tender, lungs clear, normal breath sounds, no respiratory distress, no accessory muscle use Cardiovascular: regular rate, rhythm, no edema, no gallop, no JVD, no murmur Abdomen: normal bowel sounds, + distended Extremities: + pedal edema, + swelling Neurologic/Psychiatric: alert, normal mood/affect, oriented x 3 Skin: normal color, warm/dry, no rash Laboratory Results 09/17/17 06:01 09/17/17 06:01 Test 09/17/17 06:01 Red Blood Count 3.87 M/uL (4.2-5.4) Mean Corpuscular Volume 72.9 fL (80-100) Mean Corpuscular Hemoglobin 22.7 pg (25-34) Mean Corpuscular Hemoglobin Concent 31.2 g/dl (32-36) RDW Standard Deviation 56.1 fL (36.4-46.3) RDW Coefficient of Variation 21.5 % (11.5-14.5) Mean Platelet Volume 8.9 fL (7.4-10.4) Prothrombin Time 12.7 SECONDS (9.0-12.0) Prothromb Time International Ratio 1.2 (0.9-1.1) Activated Partial Thromboplast Time 97.6 SECONDS (21.0-31.0) Partial Thromboplastin Ratio 3.8 Anion Gap 9.0 mmol/L (3-11) Est Creatinine Clear Calc Drug Dose 68.9 ml/min Estimated GFR () 64.4 Estimated GFR (Non- 55.5 BUN/Creatinine Ratio 19.8 (10-20) Calcium Level 8.3 mg/dl (8.5-10.1) Total Bilirubin 0.5 mg/dl (0.2-1) Aspartate Amino Transf (AST/SGOT) 159 U/L (15-37) Alanine Aminotransferase (ALT/SGPT) 70 U/L (12-78) Alkaline Phosphatase 497 U/L (45-117) Total Protein 5.5 gm/dl (6.4-8.2) Albumin 1.5 gm/dl (3.4-5.0) Globulin 4.0 gm/dl (2.5-4.0) Albumin/Globulin Ratio 0.4 (0.9-2) Assessment and Plan 26, PMHX significant for metastatic adrenocortical carcinoma. Presents with SOB , substernal and pleuritic chest pain PE -dced IV heparin -started on 80mg Levonox BID -will need residential anticoagulation. Discussing with patient -LE extremity Doppler-no evidence of DVT Symptomatic Anemia Pt receiving 1 unit of blood today and albumin infusion per hematology recommendations iron infusions yesterday Anxiety Pt started on Buspar 5mg TOD PRN Consider Ativan if patient reports trouble sleeping Adrenocortical cancer, stage 4 -Pt no longer undergoing treatment -Oncology had extensive discussion with patient and family about on transitioning to hospice/palliative care. follow. -pt oxycodone IR reduced from 10mg to 5mg to reduce drowsiness - IV albumin to help with nutrition Abdominal distension/ fluid retention/LE edema -Continuing patients Lasix and Aldactone Reviewed: Pt Seen/Exam by Me History feeling very anxious. Constitutional: denies: fever Respiratory: negative: short of breath Cardiovascular: denies chest pain General Appearance: no apparent distress Respiratory: lungs clear, no respiratory distress Cardiovascular: regular rate, rhythm Neurologic/Psychiatric: alert, oriented x 3 Skin Characteristics: warm/dry Assessment/Plan Resident Physician Supervision Note: I independently interviewed and examined the patient and verified the castro history and physical, reviewed labs and image studies, discussed the case with the resident Dr. Sanz and agree with the findings and care plan.
--- NOTE | 2017-09-17 14:43 | Medical Student: [facility] ---
Med Student Progress Note Date of Service Sep 17, 2017. Subjective Pt evaluation today including: conversation w/ patient, conversation w/ family , physical exam, lab review Tailor is feeling well today. She has no complaint of shortness of breath or chest pain. She says she is having some issues with constipation. The swelling in her feet feels a little better today, she says she can bend her ankles more today. Denies fever, chills, cough, hemoptysis. I spoke with her about the plan for anticoagulation and trying to get her home so she can be more comfortable. Dr. Jenkins spoke to her about hospice and explained how it works, in a general sense. Review of Systems Constitutional: + see HPI Objective Vital Signs Date Time Temp Pulse Resp B/P (MAP) Pulse Ox O2 Delivery O2 Flow Rate FiO2 09/17/17 14:21 64 16 128/90 95 09/17/17 13:40 36.3 74 16 119/86 96 09/17/17 13:15 36.3 76 18 115/82 96 09/17/17 13:01 36.3 97 20 108/67 09/17/17 12:00 Room Air 09/17/17 11:50 36.5 103 16 131/99 (110) 94 Room Air 09/17/17 08:01 36.3 122 22 132/108 (116) 96 09/17/17 08:00 Room Air 09/17/17 04:27 36.8 66 16 114/74 (87) 95 Room Air 09/17/17 04:00 Room Air 09/17/17 00:00 96 Room Air 09/17/17 00:00 36.2 66 116/68 (84) 96 Room Air 09/16/17 20:00 95 Room Air 09/16/17 19:17 36.6 74 16 123/91 (102) 95 Room Air 09/16/17 16:08 96 Room Air 09/16/17 15:41 36.7 103 18 145/109 (121) 96 Room Air Physical Exam General Appearance: WD/WN, no apparent distress ENT: hearing grossly normal Respiratory/Chest: chest non-tender, lungs clear, normal breath sounds, no respiratory distress, no accessory muscle use Cardiovascular: regular rate, rhythm, no gallop, no JVD, no murmur Extremities: + pedal edema (Severe pedal edema extending up the majority of the legs. No hair growth. Legs have a shiny appearance. ) Neurologic/Psychiatric: alert, normal mood/affect Laboratory Results Last 24 Hours Test 09/17/17 06:01 White Blood Count 7.30 K/uL Red Blood Count 3.87 M/uL Hemoglobin 8.8 g/dL Hematocrit 28.2 % Mean Corpuscular Volume 72.9 fL Mean Corpuscular Hemoglobin 22.7 pg Mean Corpuscular Hemoglobin Concent 31.2 g/dl RDW Standard Deviation 56.1 fL RDW Coefficient of Variation 21.5 % Platelet Count 186 K/uL Mean Platelet Volume 8.9 fL Prothrombin Time 12.7 SECONDS Prothromb Time International Ratio 1.2 Activated Partial Thromboplast Time 97.6 SECONDS Partial Thromboplastin Ratio 3.8 Sodium Level 138 mmol/L Potassium Level 3.7 mmol/L Chloride Level 100 mmol/L Carbon Dioxide Level 29 mmol/L Anion Gap 9.0 mmol/L Blood Urea Nitrogen 26 mg/dl Creatinine 1.32 mg/dl Est Creatinine Clear Calc Drug Dose 68.9 ml/min Estimated GFR () 64.4 Estimated GFR (Non- 55.5 BUN/Creatinine Ratio 19.8 Random Glucose 102 mg/dl Calcium Level 8.3 mg/dl Total Bilirubin 0.5 mg/dl Aspartate Amino Transf (AST/SGOT) 159 U/L Alanine Aminotransferase (ALT/SGPT) 70 U/L Alkaline Phosphatase 497 U/L Total Protein 5.5 gm/dl Albumin 1.5 gm/dl Globulin 4.0 gm/dl Albumin/Globulin Ratio 0.4 Assessment and Plan Assessment and Plan: Doug is a 26 yo female with history of stage 4 adrenocortical carcinoma diagnosed early in 2016 non-responsive to therapy and with peritoneal , hepatic, and pulmonary metastases who presents with shortness of breath, pleuritic chest pain and tachycardia and radiologic findings consistent with pulmonary emboli in the right lower lobe. Pulmonary Embolism: Supratherapeutic PTT of 97.6, heparin held today. Switched to enoxaparin 80mg q12hr SQ. Asymptomatic today. Plan: Continue enoxaparin, may continue enoxaparin outpatient with hospice. However, hematology was considering Coumadin, however this would likely need longer hospitalization and would be more fluctuant in INR. Coumadin may be further harder to manage given her condition and dietary status. This may add unnecessary stress to the patient. Educate patient on signs of bleeding (bloody stools, melena, gum bleeding, etc.) prior to discharge. Stage 4 adrenocortical carcinoma: Being followed by heme/onc, prognosis seems poor given minimal response to therapy and metastases. Planning for hospice care. Plan: Hospice care, palliative care. Follow with heme/onc. Edema: Severe, majority of lower extremities involved. Ranges from normotensive to hypotensive BP. Hypoalbuminemia. One kidney present, elevated creatinine and BUN suggestive of prerenal cause. Curious if her cancer has a mineralocorticoid component and may be causing sodium retention. May consider checking Aldosterone level. Plan: Albumin 12.5 mg given IV today. If blood pressure increases following albumin, will give furosemide 20mg PO daily. Will likely add spironolactone 25mg PO daily, as it may help with any mineralocorticoid component of her carcinoma if there is one. Consider compression stockings (has tried in past, and says it felt the fluid went to her abdomen). Elevation of legs. Anemia: Hgb of 8.9 today, asymptomatic. Given one unit of pRBCs today Plan: continue to follow with daily CBC. Continued [facility] stay due to: other (supratherapeutic PTT and initiated enoxaparin today as well as patient anxiety about going home at this point. ) Discharge planning: home with Hospice
[2017-09-17] MEDS: OXYCODONE HCL IR 5 MG TAB (IMMEDIATE RELEASE) PO PRN (15:30)
[2017-09-17] MEDS: FLUCONAZOLE 100 MG TAB PO SCH (20:15)
[2017-09-18] VITALS (9 sets, daily range): BP systolic 118–138; BP diastolic 63–101; PULSE 66–114; TEMP 36.3–37; O2SAT 93–98
[2017-09-18] MEDS: CHECK FENTANYL PATCH PLACEMENT SCH ×4 (00:04→23:11)
[2017-09-18] MEDS: OXYCODONE HCL IR 5 MG TAB (IMMEDIATE RELEASE) PO PRN ×2 (03:03→18:16)
--- NOTE | 2017-09-18 06:44 | Family Medicine Progress Note ---
Progress Note Date of Service Sep 18, 2017. Subjective Pt evaluation today including: conversation w/ patient, conversation w/ family , physical exam, chart review, lab review No acute complaints at this time. Constitutional: No fever, No chills, No sweats Respiratory: No cough, No sputum, No wheezing, No shortness of breath Cardiovascular: No chest pain, No orthopnea, No edema, No palpitations Abdomen: No pain, No nausea, No vomiting, No diarrhea, No constipation Female : No dysuria, No hematuria Medications Current Inpatient Medications Medications (Trade) Dose Ordered Sig/Karlos Route Start Time Stop Time Status Last Admin Dose Admin Ioversol (Optiray 320) 100 ml UD PRN IV 09/15/17 22:30 09/19/17 22:29 Acetaminophen (Tylenol Tab) 650 mg Q4H PRN PO 09/16/17 00:45 10/16/17 00:44 Al Hydrox/Mg Hydrox/Simethicone (Maalox Max Susp) 15 ml Q4H PRN PO 09/16/17 00:45 10/16/17 00:44 Magnesium Hydroxide (Milk Of Magnesia Susp) 30 ml Q12H PRN PO 09/16/17 00:45 10/16/17 00:44 Zolpidem Tartrate (Ambien Tab) 5 mg HSZ PRN PO 09/16/17 00:45 10/16/17 00:44 Ondansetron HCl (Zofran Inj) 4 mg Q6H PRN IV 09/16/17 00:45 10/16/17 00:44 Polyethylene (Miralax Powder Packet) 17 gm DAILY PRN PO 09/16/17 00:45 10/16/17 00:44 09/17/17 08:19 17 GM Enteral Nutritional Formula (Boost) 1 can TID PO 09/16/17 09:00 10/16/17 08:59 09/17/17 20:15 1 CAN Fentanyl (Duragesic Patch) 25 mcg Q72H TD 09/18/17 08:00 10/02/17 07:59 Miscellaneous (Fentanyl Patch Remove & Waste) 1 ea Q72H N/A 09/18/17 07:59 10/18/17 07:58 Miscellaneous Information (Check Fentanyl Patch Placement) 1 ea QS N/A 09/16/17 08:00 10/16/17 07:59 09/18/17 00:04 1 EA Miscellaneous (Iv Fluids Completed) 1 ea PRN PRN N/A 09/16/17 03:30 09/16/18 03:29 Fluconazole (Diflucan Tab) 200 mg DAILY@2100 PO 09/16/17 21:00 09/19/17 21:01 09/17/17 20:15 200 MG Heparin Sodium (Porcine) (Heparin 100 Unit/ml 5ml Flush) 5 ml PRN PRN IV 09/17/17 00:45 10/17/17 00:44 Oxycodone HCl (Roxicodone Immediate Rel Tab) @ Q4H PRN PO 09/17/17 10:15 10/01/17 10:14 09/18/17 03:03 2.5 MG Bisacodyl (Dulcolax Tab) 5 mg BID PRN PO 09/17/17 10:30 10/17/17 10:29 Lactulose (Chronulac Syrup) 30 gm TID PRN PO 09/17/17 10:30 10/17/17 10:29 Buspirone HCl (Buspar Tab) 5 mg TID PRN PO 09/17/17 10:30 10/17/17 10:29 Enoxaparin Sodium (Lovenox Inj) 80 mg Q12 SQ 09/17/17 10:30 10/17/17 10:29 09/17/17 20:16 80 MG Objective Vital Signs Date Time Temp Pulse Resp B/P (MAP) Pulse Ox O2 Delivery O2 Flow Rate FiO2 09/18/17 04:00 93 Room Air 09/18/17 03:11 36.3 98 20 138/101 (113) 96 Room Air 09/18/17 00:39 36.3 78 16 118/63 (81) 96 Room Air 09/17/17 23:59 93 Room Air 09/17/17 20:00 93 Room Air 09/17/17 19:49 36.2 68 16 124/77 (93) 93 Room Air 09/17/17 16:10 36.2 76 16 141/104 (116) 96 Room Air 09/17/17 16:09 94 Room Air 09/17/17 15:19 Room Air 09/17/17 15:03 36.2 60 16 135/89 97 09/17/17 14:21 64 16 128/90 95 09/17/17 13:40 36.3 74 16 119/86 96 09/17/17 13:15 36.3 76 18 115/82 96 09/17/17 13:01 36.3 97 20 108/67 95 09/17/17 12:00 Room Air 09/17/17 11:50 36.5 103 16 131/99 (110) 94 Room Air 09/17/17 08:01 36.3 122 22 132/108 (116) 96 09/17/17 08:00 Room Air Physical Exam General Appearance: WD/WN, no apparent distress Respiratory/Chest: chest non-tender, lungs clear, normal breath sounds, no respiratory distress, no accessory muscle use Cardiovascular: regular rate, rhythm, no edema, no gallop, no JVD, no murmur Abdomen: normal bowel sounds, + distended Neurologic/Psychiatric: alert, normal mood/affect, oriented x 3 Skin: normal color, warm/dry, no rash Laboratory Results 09/18/17 07:12 09/18/17 07:12 Test 09/18/17 07:12 Red Blood Count 4.80 M/uL (4.2-5.4) Mean Corpuscular Volume 75.2 fL (80-100) Mean Corpuscular Hemoglobin 23.8 pg (25-34) Mean Corpuscular Hemoglobin Concent 31.6 g/dl (32-36) RDW Standard Deviation 58.0 fL (36.4-46.3) RDW Coefficient of Variation 21.5 % (11.5-14.5) Mean Platelet Volume 9.2 fL (7.4-10.4) Anion Gap 10.0 mmol/L (3-11) Est Creatinine Clear Calc Drug Dose 65.9 ml/min Estimated GFR () 61.0 Estimated GFR (Non- 52.6 BUN/Creatinine Ratio 18.8 (10-20) Calcium Level 8.8 mg/dl (8.5-10.1) Total Bilirubin 0.8 mg/dl (0.2-1) Aspartate Amino Transf (AST/SGOT) 182 U/L (15-37) Alanine Aminotransferase (ALT/SGPT) 80 U/L (12-78) Alkaline Phosphatase 632 U/L (45-117) Total Protein 6.2 gm/dl (6.4-8.2) Albumin 1.9 gm/dl (3.4-5.0) Globulin 4.3 gm/dl (2.5-4.0) Albumin/Globulin Ratio 0.4 (0.9-2) Assessment and Plan 26, PMHX significant for metastatic adrenocortical carcinoma. Presents with SOB , substernal and pleuritic chest pain PE -dced IV heparin -started on 80mg Levonox BID -will need residential anticoagulation. Discussing with patient -LE extremity Doppler-no evidence of DVT Symptomatic Anemia 1 unit of blood yesterday and albumin infusion per hematology recommendations receiving second dose of albumin infusion today iron infusions on day 1 Anxiety Pt started on Buspar 5mg TOD PRN Consider Ativan if patient reports trouble sleeping Adrenocortical cancer, stage 4 -Pt no longer undergoing treatment -Oncology had extensive discussion with patient and family about on transitioning to hospice/palliative care. follow. -Pt met today with Palliative care who is helping to arrange outpatient hospice -pt oxycodone IR reduced from 10mg to 5mg to reduce drowsiness - IV albumin to help with nutrition Abdominal distension/ fluid retention/LE edema -Continuing to hold patients Lasix and Aldactone Constipation -bowel regimen Reviewed: Pt Seen/Exam by Me History slept better overnight. not feeling anxious to meet with palliative care Constitutional: denies: fever Respiratory: negative: short of breath Cardiovascular: reports edema (leg), denies chest pain General Appearance: no apparent distress Respiratory: lungs clear, no respiratory distress Cardiovascular: regular rate, rhythm Extremities: pedal edema (bilateral) Neurologic/Psychiatric: alert, oriented x 3 Skin Characteristics: warm/dry Assessment/Plan Resident Physician Supervision Note: I independently interviewed and examined the patient and verified the castro history and physical, reviewed labs and image studies, discussed the case with the resident Dr. Sanz and agree with the findings and care plan.
[2017-09-18 07:30] LABS: HEMATOCRIT 36.1 % (37-47); MEAN CELL VOLUME 75.2 fL (80-100); MEAN CORPUSCULAR HEMOGLOBIN 23.8 pg (25-34); MEAN CORPUSCULAR HGB CONC 31.6 g/dl (32-36); MEAN PLATELET VOLUME 9.2 fL (7.4-10.4); PLATELET COUNT 222 K/uL (130-400); WHITE BLOOD COUNT 9.46 K/uL (4.8-10.8)
[2017-09-18] MEDS ORDERED: FENTANYL PATCH REMOVE & WASTE SCH (07:59)
[2017-09-18] MEDS ORDERED: FENTANYL 25 MCG/HR TDSY TD SCH (08:00)
[2017-09-18 08:09] LABS: ALB/GLOB RATIO 0.4 (0.9-2); BUN/CREATININE RATIO 18.8 (10-20); CALCIUM 8.8 mg/dl (8.5-10.1); CREATININE 1.38 mg/dl (0.60-1.20); POTASSIUM 4.3 mmol/L (3.5-5.1)
[2017-09-18] MEDS: ENOXAPARIN 80 MG/0.8 ML SYR SQ SCH ×2 (08:12→19:51)
[2017-09-18] MEDS: LACTULOSE SYRUP 30 GM/45 ML UDP PO PRN (08:13)
[2017-09-18] MEDS: BOOST VANILLA PO SCH ×6 (08:15→19:51)
[2017-09-18] MEDS: BISACODYL 5 MG TABEC PO PRN (08:15)
[2017-09-18] MEDS: POLYETHYLENE (MIRALAX) 17 GM PACK PO PRN (08:16)
--- NOTE | 2017-09-18 08:57 | HEME/ONC PROGRESS NOTE ---
DATE: 09/18/2017 DIAGNOSES: 1. Pulmonary embolism. 2. Anasarca. 3. Hypoalbuminemia. 4. Microcytic anemia. 5. Metastatic adrenocortical carcinoma. SUBJECTIVE: Doug was seen and examined at bedside today, looks a bit brighter mentally. Received 1 unit of packed RBCs and supplemental albumin yesterday. Considerable anasarca and leg swelling present. Nursing reports 900 mL urinary output. Pain seems to be well controlled. Palliative consultation and arrangement for hospice is underway. Doug has not moved her bowels in last 24 hours; however she is passing flatus. She is otherwise tolerating her diet. PHYSICAL EXAMINATION: GENERAL: She is in no acute distress. VITAL SIGNS: Temperature 36.5, pulse 104, respiratory rate 20, blood pressure 123/92. SKIN: A fine maculopapular rash encompassing her abdomen, nonpruritic. HEENT: Oral mucosa without erythema or ulceration. NECK: Supple. HEART: Much slower in rate today, regular in rhythm. LUNGS: Clear to auscultation. ABDOMEN: Again, soft, nontender, nondistended. EXTREMITIES: 2+ peripheral edema. NEUROLOGIC: Grossly intact. LABORATORY DATA: WBC count 9460, hemoglobin 11.4, platelet count 222,000. Sodium 136, potassium 4.3, chloride 97, carbon dioxide 28, creatinine 1.38, BUN 26, alkaline phosphatase 632, AST 182, ALT 80, albumin 1.9. IMPRESSION: 1. Elevated liver transaminases secondary to disease expansion. 2. Anasarca. 3. Pulmonary embolism. 4. Hypoalbuminemia. 5. Microcytic anemia. 6. Metastatic adrenal cortical carcinoma. PLAN: Doug and her mother were seen at bedside today. Engaged in discussion regarding therapeutic plan moving forward. Clearly, Doug understands her prognosis and is accepting of such. That said, there are still issues regarding outpatient hospice in particular appropriating hospital bed in preparation for her to be discharged. She was recently started on a b.i.d. Lovenox subQ. Doug also received 1 unit packed RBCs and supplemental albumin yesterday. I would like her to receive another dose of albumin today. Pain management appears to be optimal. Lastly, she continues to struggle with constipation and would really like her to move her bowels prior to discharge. We will make arrangements for obtaining a nutritional visit with me in the near future post-discharge. Thank you very much for assisting us in the care of this very pleasant and unfortunate patient.
[2017-09-18] MEDS ORDERED: NURSING VERBAL MED ORDER ONE (09:00)
[2017-09-18] MEDS ORDERED: ALBUMIN HUMAN 25% 12.5 GM/50 ML VIAL IV ONE (09:15)
--- NOTE | 2017-09-18 11:58 | Palliative Care Consultation ---
Consultation Date of Consultation: Sep 18, 2017. Requesting Physician: Dr. Thomas Attending Physician: Dr. Sanz, Dr. Thomas Reason for Consultation: Goals of care, hospice History of Present Illness This very pleasant 26 year old female with end-stage adrenocortical carcinoma presented to the hospital two days ago with shortness of breath and pleuritic chest pain. She was found on CTA of the chest/abd/pelvis revealed PE, possible IVC thrombus, started on heparin gtt. Also showed widespread metastatic disease (previously known) to the liver, bilateral lungs, and peritoneum. Venous doppler negative for DVT. Patient has underwent extensive therapy for her cancer , including going to [facility]. Unfortunately, her disease is refractory and continues to progress. The possibility of hospice was broached with the patient and family. Palliative care consulted to assist with establishing goals of care. I met with the patient, her Derick, and her mother John, in room 211. Patient is awake, alert and oriented x4, sitting in bed in no distress. patient' s pain is very well-controlled at this time with fentanyl patch 25mcg/hr and Roxicodone 5mg PO Q4h PRN. Had lactulose this morning, no bowel movement yet. We discussed patient's goals of care. She stated, "As far as treatment, we are done because it wasn't working." "I just want to go home and be comfortable for what time I have left." The patient, her family, and I discussed hospice, their service, philosophy of care, and what they provide. After discussion, patient would like to move forward with hospice referral. Past Medical/Surgical History Medical History: Bilateral lower extremity edema Chronic anemia Stage IV adrenocortical carcinoma, mets to liver, lungs and peritoneum Social History Smoking Status: Never Smoker History of Alcohol Use: No Drug Use: none Marital Status: , in relationship Housing Status: lives with family Occupation Status: employed Review of Systems Constitutional: + weakness, + problem reported (poor appetite) ENT: No trouble swallowing Respiratory: No cough, No shortness of breath (resolved) Cardiac: + edema, No chest pain Abdomen: + constipation, No pain, No nausea, No vomiting Female : No problem reported Psychiatric: No depression symptoms, No anxiety Allergies Coded Allergies: Ibuprofen (Verified Allergy, Severe, LIPS SWELL, HIVES, 09/15/17) Medications Current Inpatient Medications Medications (Trade) Dose Ordered Sig/Karlos Route Start Time Stop Time Status Last Admin Dose Admin Ioversol (Optiray 320) 100 ml UD PRN IV 09/15/17 22:30 09/19/17 22:29 Acetaminophen (Tylenol Tab) 650 mg Q4H PRN PO 09/16/17 00:45 10/16/17 00:44 Al Hydrox/Mg Hydrox/Simethicone (Maalox Max Susp) 15 ml Q4H PRN PO 09/16/17 00:45 10/16/17 00:44 Magnesium Hydroxide (Milk Of Magnesia Susp) 30 ml Q12H PRN PO 09/16/17 00:45 10/16/17 00:44 Zolpidem Tartrate (Ambien Tab) 5 mg HSZ PRN PO 09/16/17 00:45 10/16/17 00:44 Ondansetron HCl (Zofran Inj) 4 mg Q6H PRN IV 09/16/17 00:45 10/16/17 00:44 Polyethylene (Miralax Powder Packet) 17 gm DAILY PRN PO 09/16/17 00:45 10/16/17 00:44 09/18/17 08:16 17 GM Enteral Nutritional Formula (Boost) 1 can TID PO 09/16/17 09:00 10/16/17 08:59 09/18/17 08:15 1 CAN Fentanyl (Duragesic Patch) 25 mcg Q72H TD 09/18/17 08:00 10/02/17 07:59 09/18/17 08:11 25 MCG Miscellaneous (Fentanyl Patch Remove & Waste) 1 ea Q72H N/A 09/18/17 07:59 10/18/17 07:58 09/18/17 08:11 1 EA Miscellaneous Information (Check Fentanyl Patch Placement) 1 ea QS N/A 09/16/17 08:00 10/16/17 07:59 09/18/17 08:11 1 EA Miscellaneous (Iv Fluids Completed) 1 ea PRN PRN N/A 09/16/17 03:30 09/16/18 03:29 Fluconazole (Diflucan Tab) 200 mg DAILY@2100 PO 09/16/17 21:00 09/19/17 21:01 09/17/17 20:15 200 MG Heparin Sodium (Porcine) (Heparin 100 Unit/ml 5ml Flush) 5 ml PRN PRN IV 09/17/17 00:45 10/17/17 00:44 Oxycodone HCl (Roxicodone Immediate Rel Tab) @ Q4H PRN PO 09/17/17 10:15 10/01/17 10:14 09/18/17 03:03 2.5 MG Bisacodyl (Dulcolax Tab) 5 mg BID PRN PO 09/17/17 10:30 10/17/17 10:29 09/18/17 08:15 5 MG Lactulose (Chronulac Syrup) 30 gm TID PRN PO 09/17/17 10:30 10/17/17 10:29 09/18/17 08:13 30 GM Buspirone HCl (Buspar Tab) 5 mg TID PRN PO 09/17/17 10:30 10/17/17 10:29 Enoxaparin Sodium (Lovenox Inj) 80 mg Q12 SQ 09/17/17 10:30 10/17/17 10:29 09/18/17 08:12 80 MG Physical Exam Date Time Temp Pulse Resp B/P (MAP) Pulse Ox O2 Delivery O2 Flow Rate FiO2 09/18/17 08:00 Room Air 09/18/17 07:53 36.5 104 20 123/92 (102) 96 Room Air 09/18/17 04:00 93 Room Air 09/18/17 03:11 36.3 98 20 138/101 (113) 96 Room Air 09/18/17 00:39 36.3 78 16 118/63 (81) 96 Room Air 09/17/17 23:59 93 Room Air 09/17/17 20:00 93 Room Air 09/17/17 19:49 36.2 68 16 124/77 (93) 93 Room Air 09/17/17 16:10 36.2 76 16 141/104 (116) 96 Room Air 09/17/17 16:09 94 Room Air 09/17/17 15:19 Room Air 09/17/17 15:03 36.2 60 16 135/89 97 09/17/17 14:21 64 16 128/90 95 09/17/17 13:40 36.3 74 16 119/86 96 09/17/17 13:15 36.3 76 18 115/82 96 09/17/17 13:01 36.3 97 20 108/67 95 09/17/17 12:00 Room Air General Appearance: no apparent distress ENT: hearing grossly normal Neck: supple, no JVD Respiratory: lungs clear, no respiratory distress, no accessory muscle use, + decreased breath sounds (right ) Cardiovascular: regular rate, rhythm, + normal peripheral pulses (pedal pulses still palpable), + pertinent finding (>+4 pitting edema to bilateral lower extremities) Abdomen: normal bowel sounds, non tender, soft Neurologic/Psychiatric: alert, normal mood/affect, oriented x 3 Skin: normal color Laboratory Results Last 24 Hours Test 09/18/17 07:12 White Blood Count 9.46 K/uL Red Blood Count 4.80 M/uL Hemoglobin 11.4 g/dL Hematocrit 36.1 % Mean Corpuscular Volume 75.2 fL Mean Corpuscular Hemoglobin 23.8 pg Mean Corpuscular Hemoglobin Concent 31.6 g/dl RDW Standard Deviation 58.0 fL RDW Coefficient of Variation 21.5 % Platelet Count 222 K/uL Mean Platelet Volume 9.2 fL Sodium Level 136 mmol/L Potassium Level 4.3 mmol/L Chloride Level 97 mmol/L Carbon Dioxide Level 28 mmol/L Anion Gap 10.0 mmol/L Blood Urea Nitrogen 26 mg/dl Creatinine 1.38 mg/dl Est Creatinine Clear Calc Drug Dose 65.9 ml/min Estimated GFR () 61.0 Estimated GFR (Non- 52.6 BUN/Creatinine Ratio 18.8 Random Glucose 96 mg/dl Calcium Level 8.8 mg/dl Total Bilirubin 0.8 mg/dl Aspartate Amino Transf (AST/SGOT) 182 U/L Alanine Aminotransferase (ALT/SGPT) 80 U/L Alkaline Phosphatase 632 U/L Total Protein 6.2 gm/dl Albumin 1.9 gm/dl Globulin 4.3 gm/dl Albumin/Globulin Ratio 0.4 Assessment & Plan Palliative Performance Scale: 60 % Problem list: Pain, abdominal- controlled Bilateral lower extremity edema SOB/pleuritic chest pain- improved Poor appetite/anorexia Hypoalbuminemia Constipation Stage IV/end-stage adrenocortical carcinoma Peritoneal, liver, and lung mets Goals of care (Z51.5) Palliative care recs: discussed with patient, patient's Derick, patient's mom John, and Dr. Sanz. -After discussion, patient's goal is to go home with hospice. -Goal is to live comfortably at home for what time she has left. She is not interested in continuing to come back and forth to hospital and doctors appointments. -Bilateral leg edema makes it difficult to ambulate and go up/down stairs, but does not cause any pain. FABIANA hose only make the edema pool in her abdomen which is much more painful. -Had lactulose, mirilax and dulcolax this morning for bowels. -Abdominal pain is currently 0/10 and is well-controlled with fentanyl patch 25mcg/hr Q72h, and Roxicodone 5mg PO Q4h PRN pain. I would continue this regimen. -Patient declines any appetite stimulant at this time. -Patient chose [facility]. Referral has been sent by insurance case manager. -Patient is already level 5 DNR, will go over POLST form with patient tomorrow and complete if she wishes. -Acute care continues at this time with IV albumin and Lovenox. Is on Lovenox 80mg SQ BID, uncertain of plan for this upon discharge. Thank you for allowing me to participate in the care of this nice patient, I will continue to follow.
--- NOTE | 2017-09-18 13:00 | Medical Student: [facility] ---
Med Student Progress Note Date of Service Sep 18, 2017. Subjective Pt evaluation today including: conversation w/ patient, conversation w/ family , physical exam, chart review, lab review Tailor is feeling about the same today. She has no shortness of breath, no chest pain, no abdominal pain, no fever, chills, n/v/d. Has had constipation but didn't want to take stool softeners yet. Is requesting them today. She feels the swelling in her legs is a little worse today, she says her knees are becoming difficult to bend today. She feels slightly more wakefulness today following the transfusion. She received more information from Dr. Cuevas, Dr. Thomas, and Dr. Jenkins regarding hospice. She had a palliative care consult today. Review of Systems Constitutional: + see HPI Objective Vital Signs Date Time Temp Pulse Resp B/P (MAP) Pulse Ox O2 Delivery O2 Flow Rate FiO2 09/18/17 12:00 Room Air 09/18/17 08:00 Room Air 09/18/17 07:53 36.5 104 20 123/92 (102) 96 Room Air 09/18/17 04:00 93 Room Air 09/18/17 03:11 36.3 98 20 138/101 (113) 96 Room Air 09/18/17 00:39 36.3 78 16 118/63 (81) 96 Room Air 09/17/17 23:59 93 Room Air 09/17/17 20:00 93 Room Air 09/17/17 19:49 36.2 68 16 124/77 (93) 93 Room Air 09/17/17 16:10 36.2 76 16 141/104 (116) 96 Room Air 09/17/17 16:09 94 Room Air 09/17/17 15:19 Room Air 09/17/17 15:03 36.2 60 16 135/89 97 09/17/17 14:21 64 16 128/90 95 09/17/17 13:40 36.3 74 16 119/86 96 09/17/17 13:15 36.3 76 18 115/82 96 09/17/17 13:01 36.3 97 20 108/67 95 Physical Exam General Appearance: WD/WN, no apparent distress ENT: hearing grossly normal Neck: supple, no JVD, trachea midline Respiratory/Chest: chest non-tender, lungs clear, normal breath sounds, no respiratory distress, no accessory muscle use Cardiovascular: regular rate, rhythm, no gallop, no JVD, no murmur Extremities: non-tender, + pedal edema (Severe pitting edema up majority of legs. Shiny appearance to legs. No hair growth. ) Neurologic/Psychiatric: alert, normal mood/affect Laboratory Results Last 24 Hours Test 09/18/17 07:12 White Blood Count 9.46 K/uL Red Blood Count 4.80 M/uL Hemoglobin 11.4 g/dL Hematocrit 36.1 % Mean Corpuscular Volume 75.2 fL Mean Corpuscular Hemoglobin 23.8 pg Mean Corpuscular Hemoglobin Concent 31.6 g/dl RDW Standard Deviation 58.0 fL RDW Coefficient of Variation 21.5 % Platelet Count 222 K/uL Mean Platelet Volume 9.2 fL Sodium Level 136 mmol/L Potassium Level 4.3 mmol/L Chloride Level 97 mmol/L Carbon Dioxide Level 28 mmol/L Anion Gap 10.0 mmol/L Blood Urea Nitrogen 26 mg/dl Creatinine 1.38 mg/dl Est Creatinine Clear Calc Drug Dose 65.9 ml/min Estimated GFR () 61.0 Estimated GFR (Non- 52.6 BUN/Creatinine Ratio 18.8 Random Glucose 96 mg/dl Calcium Level 8.8 mg/dl Total Bilirubin 0.8 mg/dl Aspartate Amino Transf (AST/SGOT) 182 U/L Alanine Aminotransferase (ALT/SGPT) 80 U/L Alkaline Phosphatase 632 U/L Total Protein 6.2 gm/dl Albumin 1.9 gm/dl Globulin 4.3 gm/dl Albumin/Globulin Ratio 0.4 Assessment and Plan Assessment and Plan: Doug is a 26 yo female with history of stage 4 adrenocortical carcinoma diagnosed early in 2016 non-responsive to therapy and with peritoneal , hepatic, and pulmonary metastases who presents with shortness of breath, pleuritic chest pain and tachycardia and radiologic findings consistent with pulmonary emboli in the right lower lobe. Pulmonary Embolism: Supratherapeutic PTT of 97.6, started on enoxaparin yesterday. Asymptomatic today. Plan: Continue enoxaparin, may continue enoxaparin outpatient with hospice. However, hematology was considering Coumadin, however this would likely need longer hospitalization and would be more fluctuant in INR. Coumadin may be further harder to manage given her condition and dietary status. This may add unnecessary stress to the patient. Educate patient on signs of bleeding (bloody stools, melena, gum bleeding, etc.) prior to discharge. Stage 4 adrenocortical carcinoma: Being followed by heme/onc, prognosis seems poor given minimal response to therapy and metastases. Planning for hospice care. Plan: Hospice care, palliative care. Follow with heme/onc. Edema: Severe, majority of lower extremities involved. Normotensive to mild hypertensive BP today. Hypoalbuminemia (1.9 today, 1.5 yesterday). Given 12.5 g albumin yesterday. One kidney present, elevated creatinine and BUN with a ratio that is suggestive of prerenal cause, However has been improving since hospitalization to less than 20:1 ratio. Curious if her cancer has a mineralocorticoid component and may be causing sodium retention. May consider checking Aldosterone level. Plan: Albumin 12.5 gm given IV today with minimal improvement in albumin and symptoms. Planning for 25gm today. If blood pressure increases and tachycardia decreases following albumin, will give furosemide 20mg PO daily. Will likely add spironolactone 25mg PO daily, as it may help with any mineralocorticoid component of her carcinoma if there is one. Consider compression stockings (has tried in past, and says it felt the fluid went to her abdomen). Elevation of legs. Anemia: Hgb of 11.4 (prev 8.8) today following 1 unit transfusion yesterday, asymptomatic. Given one unit of pRBCs today Plan: continue to follow with daily CBC. Continued [facility] stay due to: other (supratherapeutic PTT, hypoalbuminemia with severe edema, hypotension, tachycardia, and initiated enoxaparin as well as patient anxiety about going home at this point. ) Discharge planning: home with Hospice
[2017-09-18] MEDS: FLUCONAZOLE 100 MG TAB PO SCH (19:50)
[2017-09-19 04:00] VITALS: O2SAT 95
[2017-09-19 05:30] VITALS: BP 112/67; PULSE 67; TEMP 36.7; O2SAT 97
[2017-09-19] MEDS: BOOST VANILLA PO SCH ×6 (08:04→19:29)
[2017-09-19] MEDS: CHECK FENTANYL PATCH PLACEMENT SCH ×2 (08:04→16:06)
[2017-09-19] MEDS: ENOXAPARIN 80 MG/0.8 ML SYR SQ SCH (08:05)
[2017-09-19] MEDS: BISACODYL 5 MG TABEC PO PRN (08:05)
[2017-09-19] MEDS: POLYETHYLENE (MIRALAX) 17 GM PACK PO SCH (08:15)
[2017-09-19 08:31] LABS: HEMATOCRIT 37.2 % (37-47); MEAN CORPUSCULAR HEMOGLOBIN 25.2 pg (25-34); MEAN CORPUSCULAR HGB CONC 33.6 g/dl (32-36); MEAN PLATELET VOLUME 9.4 fL (7.4-10.4); PLATELET COUNT 232 K/uL (130-400); RED BLOOD COUNT 4.96 M/uL (4.2-5.4); WHITE BLOOD COUNT 10.63 K/uL (4.8-10.8)
--- NOTE | 2017-09-19 08:31 | HEME/ONC PROGRESS NOTE ---
DATE: 09/19/2017 DIAGNOSES: 1. Pulmonary embolism. 2. Anasarca. 3. Hypoalbuminemia. 4. Microcytic anemia. 5. Metastatic adrenal cortical carcinoma. SUBJECTIVE: Doug was seen and examined again at bedside. She is tolerating her diet at present. She received a second course of albumin yesterday. Unfortunately, still with considerable lower extremity swelling making it difficult to ambulate. She continues to struggle with constipation and primary team is currently working on her bowels. PHYSICAL EXAMINATION: GENERAL: She is in no acute distress. VITAL SIGNS: Temperature 36.7, pulse 67, respiration 16, blood pressure 112/67. SKIN: Without rash or lesion. HEENT: Oral mucosa without erythema or ulceration. NECK: Supple. HEART: Regular rate and rhythm. LUNGS: Clear to auscultation bilaterally. ABDOMEN: Soft, nontender, nondistended. EXTREMITIES: 2+ peripheral edema in lower extremities bilaterally. NEUROLOGIC: Grossly intact. LABORATORY DATA: CBC and CMP are pending. IMPRESSION: 1. Anasarca. 2. Pulmonary embolism. 3. Hypoalbuminemia. 4. Elevated liver transaminases secondary to disease expansion. 5. Microcytic anemia. 6. Metastatic adrenal cortical carcinoma. PLAN: Doug is doing a little bit better today. Outpatient hospice care is in the works. At this point I would suggest aggressive diuresis this morning. I feel it would be helpful to get as much fluid off her legs as possible before discharge. Her pain management is appropriate. She continues to struggle with constipation and primary service is working on this. She will continue b.i.d. Lovenox but may consider 1.5 mg/kg daily for convenience sake. I have nothing further to add. Again, thank you kindly for assisting me in the care of this very pleasant but unfortunate young lady.
[2017-09-19 09:02] LABS: BUN/CREATININE RATIO 20.2 (10-20); CALCIUM 9.1 mg/dl (8.5-10.1); CREATININE 1.51 mg/dl (0.60-1.20); POTASSIUM 4.3 mmol/L (3.5-5.1)
[2017-09-19] MEDS: LACTULOSE SYRUP 30 GM/45 ML UDP PO PRN (09:15)
--- NOTE | 2017-09-19 10:11 | Family Medicine Progress Note ---
Progress Note Date of Service Sep 19, 2017. Subjective Pt evaluation today including: conversation w/ patient, conversation w/ family , physical exam, chart review, lab review Pt is doing well this morning. No acute complaints at this time. Constitutional: No fever, No chills, No sweats Respiratory: No cough, No sputum, No shortness of breath Cardiovascular: No chest pain, No palpitations Abdomen: + constipation, No pain, No nausea, No vomiting, No diarrhea Medications Current Inpatient Medications Medications (Trade) Dose Ordered Sig/Karlos Route Start Time Stop Time Status Last Admin Dose Admin Ioversol (Optiray 320) 100 ml UD PRN IV 09/15/17 22:30 09/19/17 22:29 Acetaminophen (Tylenol Tab) 650 mg Q4H PRN PO 09/16/17 00:45 10/16/17 00:44 Al Hydrox/Mg Hydrox/Simethicone (Maalox Max Susp) 15 ml Q4H PRN PO 09/16/17 00:45 10/16/17 00:44 Magnesium Hydroxide (Milk Of Magnesia Susp) 30 ml Q12H PRN PO 09/16/17 00:45 10/16/17 00:44 Zolpidem Tartrate (Ambien Tab) 5 mg HSZ PRN PO 09/16/17 00:45 10/16/17 00:44 Ondansetron HCl (Zofran Inj) 4 mg Q6H PRN IV 09/16/17 00:45 10/16/17 00:44 Enteral Nutritional Formula (Boost) 1 can TID PO 09/16/17 09:00 10/16/17 08:59 09/18/17 08:15 1 CAN Fentanyl (Duragesic Patch) 25 mcg Q72H TD 09/18/17 08:00 10/02/17 07:59 09/18/17 08:11 25 MCG Miscellaneous (Fentanyl Patch Remove & Waste) 1 ea Q72H N/A 09/18/17 07:59 10/18/17 07:58 09/18/17 08:11 1 EA Miscellaneous Information (Check Fentanyl Patch Placement) 1 ea QS N/A 09/16/17 08:00 10/16/17 07:59 09/19/17 08:04 1 EA Miscellaneous (Iv Fluids Completed) 1 ea PRN PRN N/A 09/16/17 03:30 09/16/18 03:29 Fluconazole (Diflucan Tab) 200 mg DAILY@2100 PO 09/16/17 21:00 09/19/17 21:01 09/18/17 19:50 200 MG Heparin Sodium (Porcine) (Heparin 100 Unit/ml 5ml Flush) 5 ml PRN PRN IV 09/17/17 00:45 10/17/17 00:44 Oxycodone HCl (Roxicodone Immediate Rel Tab) @ Q4H PRN PO 09/17/17 10:15 10/01/17 10:14 09/18/17 18:16 5 MG Bisacodyl (Dulcolax Tab) 5 mg BID PRN PO 09/17/17 10:30 10/17/17 10:29 09/19/17 08:05 5 MG Lactulose (Chronulac Syrup) 30 gm TID PRN PO 09/17/17 10:30 10/17/17 10:29 09/19/17 09:15 30 GM Buspirone HCl (Buspar Tab) 5 mg TID PRN PO 09/17/17 10:30 10/17/17 10:29 Enoxaparin Sodium (Lovenox Inj) 80 mg Q12 SQ 09/17/17 10:30 10/17/17 10:29 09/19/17 08:05 80 MG Polyethylene (Miralax Powder Packet) 17 gm DAILY PO 09/19/17 07:15 10/19/17 07:14 09/19/17 08:15 17 GM Lactulose (Chronulac Syrup) 30 gm NOW ONCE PO 09/19/17 10:15 09/19/17 10:16 Furosemide 20 mg/ Syringe 2 ml @ 4 mls/min TODAY@1030 IV 09/19/17 10:30 09/19/17 10:31 Objective Vital Signs Date Time Temp Pulse Resp B/P (MAP) Pulse Ox O2 Delivery O2 Flow Rate FiO2 09/19/17 08:00 Room Air 09/19/17 05:30 36.7 67 16 112/67 (82) 97 Room Air 09/19/17 04:00 95 Room Air 09/18/17 23:59 95 Room Air 09/18/17 23:18 36.4 66 18 119/81 (94) 95 Room Air 09/18/17 20:09 37.0 114 18 122/63 (82) 98 09/18/17 20:00 Room Air 09/18/17 16:47 36.7 91 18 129/71 (90) 98 09/18/17 16:00 Room Air 09/18/17 12:00 Room Air 09/18/17 11:19 36.3 98 20 136/97 (110) 95 Room Air Physical Exam General Appearance: WD/WN, no apparent distress Respiratory/Chest: chest non-tender, lungs clear, normal breath sounds, no respiratory distress, no accessory muscle use Cardiovascular: regular rate, rhythm, no edema, no gallop, no JVD, no murmur Neurologic/Psychiatric: no motor/sensory deficits, alert, normal mood/affect Skin: normal color, warm/dry, no rash Laboratory Results 09/19/17 08:17 09/19/17 08:17 Test 09/19/17 08:17 09/19/17 09:12 Red Blood Count 4.96 M/uL (4.2-5.4) Mean Corpuscular Volume 75.0 fL (80-100) Mean Corpuscular Hemoglobin 25.2 pg (25-34) Mean Corpuscular Hemoglobin Concent 33.6 g/dl (32-36) RDW Standard Deviation 58.3 fL (36.4-46.3) RDW Coefficient of Variation 22.1 % (11.5-14.5) Mean Platelet Volume 9.4 fL (7.4-10.4) Nucleated RBC Absolute Count (auto) 0.04 K/uL (0-0) Nucleated Red Blood Cells % 0.4 % Anion Gap 9.0 mmol/L (3-11) Est Creatinine Clear Calc Drug Dose 60.2 ml/min Estimated GFR () 54.7 Estimated GFR (Non- 47.2 BUN/Creatinine Ratio 20.2 (10-20) Calcium Level 9.1 mg/dl (8.5-10.1) Albumin 2.0 gm/dl (3.4-5.0) Assessment and Plan 26, PMHX significant for metastatic adrenocortical carcinoma. Presents with SOB , substernal and pleuritic chest pain PE -dced IV heparin -started on 80mg Levonox BID - Pt will be going home with 120mg of Levonox q daily. -LE extremity Doppler-no evidence of DVT Symptomatic Anemia 1 unit of blood and albumin infusion per hematology recommendations iron infusions on day 1 Anxiety No further anxiousness. Hasn't needed any Buspar Adrenocortical cancer, stage 4 -Pt no longer undergoing treatment -Oncology had extensive discussion with patient and family about transitioning to hospice/palliative care. -Hospice consulted--outpatient arrangements are being made -pt oxycodone IR reduced from 10mg to 5mg to reduce drowsiness - IV albumin to help with nutrition Abdominal distension/ fluid retention/LE edema -40mgs of Lasix today. Resume home dose lasix and aldactone on discharge Constipation Miralax Reviewed: Pt Seen/Exam by Me History no bowel movement legs are still swollen Constitutional: denies: fever Respiratory: negative: short of breath Cardiovascular: denies chest pain Gastrointestinal/Abdominal: positive: constipation, negative: abdominal pain General Appearance: no apparent distress Respiratory: lungs clear, no respiratory distress Cardiovascular: regular rate, rhythm Gastrointestinal: soft Extremities: pedal edema Neurologic/Psychiatric: alert, oriented x 3 Assessment/Plan Resident Physician Supervision Note: I independently interviewed and examined the patient and verified the castro history and physical, reviewed labs and image studies, discussed the case with the resident Dr. Sanz and agree with the findings and care plan.
[2017-09-19] MEDS ORDERED: LACTULOSE SYRUP 30 GM/45 ML UDP PO ONE (10:15)
[2017-09-19] MEDS ORDERED: FUROSEMIDE 40 MG/4 ML VIAL IV STA (10:27)
[2017-09-19] MEDS ORDERED: FUROSEMIDE INJ 20 MG in SYRINGE 0 ML IV SCH (10:30)
[2017-09-19] MEDS ORDERED: FUROSEMIDE 40 MG/4 ML VIAL IV ONE (10:45)
[2017-09-19] MEDS ORDERED: ENOXAPARIN 40 MG/0.4 ML SYR SQ ONE (11:00)
--- NOTE | 2017-09-19 11:58 | Palliative Care Progress Note ---
Palliative Care Progress Note Date of Service Sep 19, 2017. Subjective Pt evaluation today including: conversation w/ patient, conversation w/ family , physical exam, chart review, conversation w/ it infrastructure consultant (Dr. Sanz, Dr. Cuevas), review of inpatient medication list Pain: 0/10 PO Intake: tolerating diet. poor appetite Voiding: no voiding problems -Patient seen and examined with family at bedside (spouse, mother, [id number] ). -Legs are still equally as edematous. Primary medical team ordered Lasix today. -Discussion about POLST and hospice. See plan below. Review of Systems Constitutional: + weakness ENT: No trouble swallowing Respiratory: No cough, No shortness of breath Cardiac: + edema, No chest pain Abdomen: + constipation, No pain, No nausea, No vomiting Female : No problem reported Psychiatric: + problem reported (some worry about the future), No depression symptoms, No anxiety Objective Vital Signs Date Time Temp Pulse Resp B/P (MAP) Pulse Ox O2 Delivery O2 Flow Rate FiO2 09/19/17 08:00 Room Air 09/19/17 05:30 36.7 67 16 112/67 (82) 97 Room Air 09/19/17 04:00 95 Room Air 09/18/17 23:59 95 Room Air 09/18/17 23:18 36.4 66 18 119/81 (94) 95 Room Air 09/18/17 20:09 37.0 114 18 122/63 (82) 98 09/18/17 20:00 Room Air 09/18/17 16:47 36.7 91 18 129/71 (90) 98 09/18/17 16:00 Room Air 09/18/17 12:00 Room Air Physical Exam General Appearance: WD/WN, no apparent distress ENT: hearing grossly normal Neck: supple, no JVD Respiratory/Chest: no respiratory distress, no accessory muscle use, + pertinent finding (room air) Cardiovascular: regular rate, rhythm, + pertinent finding (>+4 pitting edema to bilateral lower extremities) Abdomen: non tender, soft, + hepatomegaly Neurologic/Psychiatric: alert, normal mood/affect, oriented x 3 Skin: normal color Laboratory Results Last 24 Hours Test 09/19/17 08:17 09/19/17 09:12 White Blood Count 10.63 K/uL Red Blood Count 4.96 M/uL Hemoglobin 12.5 g/dL Hematocrit 37.2 % Mean Corpuscular Volume 75.0 fL Mean Corpuscular Hemoglobin 25.2 pg Mean Corpuscular Hemoglobin Concent 33.6 g/dl RDW Standard Deviation 58.3 fL RDW Coefficient of Variation 22.1 % Platelet Count 232 K/uL Mean Platelet Volume 9.4 fL Nucleated RBC Absolute Count (auto) 0.04 K/uL Nucleated Red Blood Cells % 0.4 % Sodium Level 134 mmol/L Potassium Level 4.3 mmol/L Chloride Level 97 mmol/L Carbon Dioxide Level 28 mmol/L Anion Gap 9.0 mmol/L Blood Urea Nitrogen 31 mg/dl Creatinine 1.51 mg/dl Est Creatinine Clear Calc Drug Dose 60.2 ml/min Estimated GFR () 54.7 Estimated GFR (Non- 47.2 BUN/Creatinine Ratio 20.2 Random Glucose 115 mg/dl Calcium Level 9.1 mg/dl Albumin 2.0 gm/dl Assessment and Plan Problem list: Pain, abdominal- controlled Bilateral lower extremity edema Weakness secondary to BLE edema SOB/pleuritic chest pain- resolved Poor appetite/anorexia Hypoalbuminemia Constipation Stage IV/end-stage adrenocortical carcinoma Peritoneal, liver, and lung mets Goals of care (Z51.5) Palliative care recs: -Lasix 40mg IV today. -Lovenox to be changed to once daily. She will be on this indefinitely at home. -Received lactulose again today. Patient states she probably will not be able to move her bowels until she gets home where she is comfortable. -Continue fentanyl patch and PRN Roxicodone- working well for patient. -POLST form completed as follows: DNR, limited additional interventions, abx if life can be prolonged (additional order: "unless no sign of recovery, then consider discontinuing") trial of IVF but no feeding tube. Signed by patient in the presence of her Derick, mother John, and her [id number]. Derick ( spouse) is surrogate decision maker per the patient. -Further discussed hospice care and some end-of-life scenarios. Questions/ concerns answered to patient and family's satisfaction. -Support given. -Hospice is meeting with patient this afternoon. Patient may be ready for discharge today or tomorrow per hospitalist team. Again, thank you for allowing me to care for this nice patient and her family. I will follow. Palliative Performance Scale: 60 % Continued [facility] stay due to: other (acute care continues) Discharge planning: home with Hospice
[2017-09-19 12:46] VITALS: BP 111/74; PULSE 85; TEMP 36.5; O2SAT 95
--- NOTE | 2017-09-19 13:28 | Medical Student: [facility] ---
Med Student Progress Note Date of Service Sep 19, 2017. Subjective Today Doug feels ok. She says she feels about the same today as yesterday. Her edema feels the same today as yesterday, which is overall worse than her baseline prior to hospitalization. She is having difficulty lifting her legs and bending her knees. She has been feeling decreased appetite and has not had a BM, she attributes this to not being able to have them in bathrooms not at home. She also mentions that she thinks her abdominal rash is from Diflucan, as her mother had a similar reaction and that the rash started morning after after being given Diflucan. This has been an issue majority of her life. Otherwise she denies shortness of breath, chest pain, fever, chills, n/v/d. She does endorse some fatigue but attributes it to her abdomen feeling heavy and making it hard to breath well. She mentions that she was told by [facility] that they would call her, and she has not been called back yet. Review of Systems Constitutional: + see HPI Objective Vital Signs Date Time Temp Pulse Resp B/P (MAP) Pulse Ox O2 Delivery O2 Flow Rate FiO2 09/19/17 12:46 36.5 85 18 111/74 (86) 95 Nasal Cannula 2.0 09/19/17 11:48 Room Air 09/19/17 08:00 Room Air 09/19/17 05:30 36.7 67 16 112/67 (82) 97 Room Air 09/19/17 04:00 95 Room Air 09/18/17 23:59 95 Room Air 09/18/17 23:18 36.4 66 18 119/81 (94) 95 Room Air 09/18/17 20:09 37.0 114 18 122/63 (82) 98 09/18/17 20:00 Room Air 09/18/17 16:47 36.7 91 18 129/71 (90) 98 09/18/17 16:00 Room Air Physical Exam General Appearance: WD/WN, no apparent distress Respiratory/Chest: chest non-tender, lungs clear, normal breath sounds, no respiratory distress, no accessory muscle use Cardiovascular: regular rate, rhythm, no gallop, no murmur Extremities: + pedal edema (Severe, unchanged from yesterday) Neurologic/Psychiatric: alert, normal mood/affect Laboratory Results Last 24 Hours Test 09/19/17 08:17 09/19/17 09:12 White Blood Count 10.63 K/uL Red Blood Count 4.96 M/uL Hemoglobin 12.5 g/dL Hematocrit 37.2 % Mean Corpuscular Volume 75.0 fL Mean Corpuscular Hemoglobin 25.2 pg Mean Corpuscular Hemoglobin Concent 33.6 g/dl RDW Standard Deviation 58.3 fL RDW Coefficient of Variation 22.1 % Platelet Count 232 K/uL Mean Platelet Volume 9.4 fL Nucleated RBC Absolute Count (auto) 0.04 K/uL Nucleated Red Blood Cells % 0.4 % Sodium Level 134 mmol/L Potassium Level 4.3 mmol/L Chloride Level 97 mmol/L Carbon Dioxide Level 28 mmol/L Anion Gap 9.0 mmol/L Blood Urea Nitrogen 31 mg/dl Creatinine 1.51 mg/dl Est Creatinine Clear Calc Drug Dose 60.2 ml/min Estimated GFR () 54.7 Estimated GFR (Non- 47.2 BUN/Creatinine Ratio 20.2 Random Glucose 115 mg/dl Calcium Level 9.1 mg/dl Albumin 2.0 gm/dl Assessment and Plan Assessment and Plan: Doug is a 26 yo female with history of stage 4 adrenocortical carcinoma diagnosed early in 2016 non-responsive to therapy and with peritoneal , hepatic, and pulmonary metastases who presents with shortness of breath, pleuritic chest pain and tachycardia and radiologic findings consistent with pulmonary emboli in the right lower lobe. Pulmonary Embolism: On enoxaparin. Asymptomatic today. Plan: Continue enoxaparin, may continue enoxaparin outpatient with hospice. This may add unnecessary stress to the patient. Educate patient on signs of bleeding (bloody stools, melena, gum bleeding, etc.) prior to discharge. Stage 4 adrenocortical carcinoma: Being followed by heme/onc, prognosis seems poor given minimal response to therapy and metastases. Planning for hospice care. Plan: Hospice care, palliative care. Follow with heme/onc. Edema: Severe, majority of lower extremities involved. Normotensive to mild hypertensive BP today. Hypoalbuminemia (2.0 today, 1.9 yesterday). Given 12.5 g albumin yesterday. One kidney present, elevated creatinine and BUN with a ratio that is suggestive of prerenal cause, However has been improving since hospitalization to less than 20:1 ratio. Curious if her cancer has a mineralocorticoid component and may be causing sodium retention. May consider checking Aldosterone level. Plan: Albumin 12.5 gm given IV today. Will give furosemide 20mg PO daily starting today with close monitoring of BP and tachycardia. Will likely add spironolactone 25mg PO daily, as it may help with any mineralocorticoid component of her carcinoma if there is one. Consider compression stockings (has tried in past, and says it felt the fluid went to her abdomen). Elevation of legs. Anemia: Hgb of 12.5 (prev 11.4) today following 1 unit transfusion yesterday, asymptomatic. Plan: continue to follow routinely outpatient Summary: Would like to provide her with another dose albumin today, check blood albumin today, start diuretics today with observation of vitals. Then discharge to home with hospice care starting ideally next week. Then check albumin, HR, BP , etc. and if need be provide albumin at home as well as manage her diuretics at home. Discharge planning: home with Hospice
--- NOTE | 2017-09-19 15:10 | Discharge Instructions ---
Discharge Instructions Date of Service Sep 19, 2017. Admission Reason for Admission: Ivc Thrombosis,Pulmonary Embolism VTE Date & Time Date of VTE Diagnosis: Sep 15, 2017 Time of VTE Diagnosis: 21:48 Discharge Goals Goal(s): Decrease discomfort, Increase independence Activity Recommendations Activity Limitations: resume your previous activity . Instructions / Follow-Up Instructions / Follow-Up Kwan Reid came to [facility] with shortness of breath. You were found to have a pulmonary embolism which is a blood clot in the veins of your lungs. Your illness puts you at greater risk for blood clots. At the hospital you received a blood thinner called Heparin. This relieved you pulmonary symptoms. We are recommending and prescribing a medicine to prevent future clots. The medicine is like Heparin, but it comes in a injection form called Lovenox. We are sending you home with a prescription for the shots; one injection, 120mg of Lovenox daily. During your hospitalization you have met with Hospice services. They will be taking care of your medications for pain, but in the interim, before their services begin, we are sending you home with prescriptions for pain medications. It has been a pleasure to meet you and to take care of you here in the hospital. Please do not hesitate to follow up with us Thank you, Dr. Sanz Medication Instructions: * Warfarin is a medicine prescribed to prevent blood clots * Warfarin will thin your blood and help prevent new clots * Take your medications exactly as directed * Never skip a dose. Never take a double dose. If you miss a dose, take it as soon as you remember * It is important for your doctor to monitor your prothrombin time (PT). This is a lab test * Keep your appointment for lab tests Risk of Adverse Drug Reactions and Interactions: * Warfarin increases your risk of bleeding * The food you eat and other medications you take can affect how Warfarin works in your body * Ask your doctor about daily aspirin therapy * It is very important to talk with your doctor about all of the other medicines , antibiotics, vitamins or herbal products that you are taking * All of your medication must be approved by your doctor, including new medicines, as well as medicines you have taken before you started taking Warfarin Diet: * In order for Warfarin to work properly, it is important to keep your intake of Vitamin K as consistent as possible * You should avoid any sudden change in Vitamin K intake * Report any significant changes in your diet or weight to your doctor Call your Primary Care doctor if you experience any of the following: * Swelling or Pain in your leg * Sudden, continuous pain deep in a muscle * Pain that worsens when you are active or when you stand still for a long time * Chest Pain * Sudden Shortness of Breath * Rapid or pounding heart beat * Fainting * Dizziness * Cough with blood or bloody sputum * Sweating more than normal * Bruises * Heavy or uncontrolled bleeding * Blood in your urine, stool or vomit * Black or tarry stools Caring for Your Self at Home: * Avoid sitting, standing or lying down for long periods without moving your legs and feet * When traveling by car, stop to get out and move around at least once every 3 hours * On long airplane, train or bus rides, get up and move around when possible * If you can't get up, wiggle your toes and tighten your calves to keep your blood moving Follow Up: It is important for you to keep your follow up appointments with your medical provider. Current Hospital Diet Patient's current hospital diet: Regular Diet Discharge Diet Recommended Diet: Regular Diet Pending Studies Studies pending at discharge: no Medical Emergencies . Who to Call and When: Medical Emergencies: If at any time you feel your situation is an emergency, please call 911 immediately. . Non-Emergent Contact Non-Emergency issues call your: Primary Care Provider . . "Provider Documentation" section prepared by Jeyson Sanz. . VTE Core Measure Inpt VTE Proph given/why not?: Other Anticoagulation Reason no anticoag overlap I/P: Treatment provided - N/A Reason no anticoag overlap @DC: Treatment provided - N/A
[2017-09-19] MEDS ORDERED: FNTTP25 TD (15:32)
[2017-09-19] MEDS ORDERED: ENOX120I SQ ×2 (15:32→15:37)
[2017-09-19] MEDS ORDERED: OXYC1TAB3 PO (15:32)
[2017-09-19] MEDS: OXYCODONE HCL IR 5 MG TAB (IMMEDIATE RELEASE) PO PRN (16:05)
[2017-09-19 16:07] VITALS: BP 115/76; PULSE 76; TEMP 36.8; O2SAT 95
[2017-09-20] MEDS: CHECK FENTANYL PATCH PLACEMENT SCH ×2 (00:05→08:27)
[2017-09-20 00:48] VITALS: BP 121/69; PULSE 87; TEMP 36.7; O2SAT 95
[2017-09-20 04:19] VITALS: BP 119/73; PULSE 87; TEMP 36.7; O2SAT 97
[2017-09-20] MEDS: OXYCODONE HCL IR 5 MG TAB (IMMEDIATE RELEASE) PO PRN (06:12)
[2017-09-20 08:00] VITALS: O2SAT 95
--- NOTE | 2017-09-20 08:14 | HEME/ONC PROGRESS NOTE ---
DATE: 09/20/2017 DIAGNOSES: 1. Pulmonary embolism. 2. Anasarca. 3. Hypoalbuminemia. 4. Microcytic anemia. 5. Metastatic adrenal cortical carcinoma. SUBJECTIVE: Doug is sitting at bedside this morning accompanied by her mother. She is tolerating her diet at present. She received 2 courses of albumin, which has improved her albumin level. She was mildly diuresed yesterday and probably should be discharged with low-dose loop diuretic. Lower extremity edema remains modestly improved. She offers no complaints of pain; however, has not moved her bowels. Doug believes she will have no problem moving her bowels once she is discharged home. According to the patient, hospice is now in place and I believe she is ready for discharge. PHYSICAL EXAMINATION: GENERAL: She is in no acute distress. VITAL SIGNS: Temperature 36.7, pulse 87, respirations 16, blood pressure 119/73. SKIN: Without rash or lesion. HEENT: Oral mucosa without erythema or ulceration. NECK: Supple. HEART: Regular rate and rhythm. LUNGS: Clear to auscultation bilaterally. ABDOMEN: Soft, nontender, nondistended. EXTREMITIES: 2+ peripheral edema in the bilateral lower extremities. NEUROLOGIC: Grossly intact. LABORATORY DATA: From yesterday, WBC count 10,630, hemoglobin 12.5, platelet count 232,000. Sodium 134, potassium 4.3, chloride 97, carbon dioxide 28, creatinine 1.51, BUN 31. IMPRESSION: 1. Anasarca. 2. Pulmonary embolism. 3. Hypoalbuminemia. 4. Elevated liver transaminases secondary to disease progression. 5. Microcytic anemia. 6. Metastatic adrenal cortical carcinoma. PLAN: Doug has made steady progress. Unfortunately, she still suffers from considerable lower extremity edema, which can be further worked on once she is discharged home. It will be reasonable to place her on a potassium-sparing diuretic. Pain management seems to be adequate at this time and we will continue to manage her pain through the hospice service. She is encouraged to increase her protein intake as much as possible. She is comfortable with going home without moving her bowels and will hopefully have meaningful bowel movement once she arrives home. She will continue b.i.d. Lovenox. Again, I will arrange for outpatient followup for pain and nutritional assessment. Again, I would like to thank the primary medical team for assisting me in the care of this very pleasant, but unfortunate young lady.
[2017-09-20 08:24] VITALS: BP_SYST 133; BP_SYST 150; BP_DIAS 100; BP_DIAS 99; PULSE 118; TEMP 36.7; O2SAT 95
[2017-09-20] MEDS: POLYETHYLENE (MIRALAX) 17 GM PACK PO SCH (08:27)
[2017-09-20] MEDS: BOOST VANILLA PO SCH ×2 (08:27)
[2017-09-20] MEDS ORDERED: FUROSEMIDE INJ 20 MG in SYRINGE 0 ML IV ONE (09:15)
[2017-09-20 10:36] VITALS: BP 150/99; PULSE 118; TEMP 36.7; O2SAT 95
--- NOTE | 2017-09-20 14:17 | Discharge Summary ---
Discharge Summary Date of Service Sep 20, 2017. (Jeyson Sanz M.D.) Discharge Summary Admission Date: Sep 16, 2017 at 01:30 Discharge Date: Sep 20, 2017 Discharge Disposition: Home with services Principal Diagnosis: Pulmonary Embolism Immunizations: Have You Had Influenza Vaccine: Yes Influenza Vaccine Date: Oct 27, 2015 History of Tetanus Vaccine?: Yes Tetanus Immunization Date: Jan 25, 2013 History of Pneumococcal: No History of Hepatitis B Vaccine: No (Jeyson Sanz M.D.) Medication Reconciliation New Medications: Enoxaparin (Lovenox) 120 Mg/0.8 Ml Inj 120 MG SQ DAILY for 30 Days, #30 SYR 9 Refills NS Continued Medications: Docusate Sodium (Colace) 100 Mg Cap 200 MG PO DAILY PRN for Constipation for 30 Days, #60 CAP Fentanyl (Fentanyl) 25 Mcg Tdsy 25 MCG TD [id number] for 9 Days, #3 PATCH (This prescription has been renewed) Furosemide (Lasix) 20 Mg Tab 20 MG PO DAILY, TAB Oxycodone Ir (Roxicodone Ir) 5 Mg Tab 1-2 TAB PO Q6H PRN for Severe Pain, #30 TAB (This prescription has been renewed) Polyethylene Glycol 3350 (Miralax) 1 Pow Pow 17 GM PO DAILY PRN for Constipation, #527 GM Spironolactone (Aldactone) 25 Mg Tab 25 MG PO DAILY, TAB Zolpidem Tartrate (Ambien) 5 Mg Tab 5 MG PO HS, TAB Discharge Exam Review of Systems: Constitutional: No fever, No chills, No sweats Respiratory: No cough, No sputum, No shortness of breath Cardiovascular: + edema, No palpitations Abdomen: No pain, No nausea, No diarrhea Musculoskeletal: + swelling Genitourinary - Male: No dysuria Physical Exam: General Appearance: WD/WN, no apparent distress Respiratory/Chest: chest non-tender, lungs clear, normal breath sounds, no respiratory distress, no accessory muscle use Cardiovascular: regular rate, rhythm, no edema, no gallop, no JVD, no murmur , normal peripheral pulses Abdomen / GI: normal bowel sounds, non tender, no organomegaly, no pulsatile mass Extremities: + pedal edema, + swelling Neurologic/Psychiatric: alert, normal mood/affect, normal reflexes (Jeyson Sanz M.D.) urinated 1200ml yesterday. still with leg swelling Review of Systems: Constitutional: No fever Respiratory: No shortness of breath Cardiovascular: No chest pain Physical Exam: General Appearance: no apparent distress Respiratory/Chest: lungs clear, no respiratory distress Cardiovascular: regular rate, rhythm Abdomen / GI: soft Extremities: + pedal edema (bilateral) Neurologic/Psychiatric: alert, oriented x 3 (Paty Thomas M.D.) Hospital Course 26 yo female, PMH for metastatic adrenocortical cancer was admitted to [facility] with shortness of breath. Pt was found to have a pulmonary embolism. Pt was started on IV heparin drip and then transitioned to Lovenox. The patient is end-stages of disease, deferring further oncologic treatments. Prior to admission, the patient was in the contemplation stage regarding Hospice care. During this admission the patient was given therapies to treat symptoms; blood transfusion, diuretics, pain medications. Pt was also consulted by Hospice and outpatient arrangements were put together. Pt was dc'ed with 120 mg Lovenox injections once daily for PE prevention. Please see problem list for more details regarding admission: 26, PMHX significant for metastatic adrenocortical carcinoma. Presents with SOB , substernal and pleuritic chest pain PE -dced IV heparin -started on 80mg Levonox BID - Pt will be going home with 120mg of Levonox q daily. -LE extremity Doppler-no evidence of DVT Symptomatic Anemia 1 unit of blood and albumin infusion per hematology recommendations iron infusions on day 1 Anxiety No further anxiousness. Hasn't needed any Buspar Adrenocortical cancer, stage 4 -Pt no longer undergoing treatment -Oncology had extensive discussion with patient and family about transitioning to hospice/palliative care. -Hospice consulted--outpatient arrangements are being made -pt oxycodone IR reduced from 10mg to 5mg to reduce drowsiness - IV albumin to help with nutrition Abdominal distension/ fluid retention/LE edema -40mgs of Lasix today. Resume home dose lasix and aldactone on discharge Constipation Miralax Total Time Spent: Less than 30 minutes This includes examination of the patient, discharge planning, medication reconciliation, and communication with other providers. (Jeyson Sanz M.D.) Resident Physician Supervision Note: I independently interviewed and examined the patient and verified the castro history and physical, reviewed labs and image studies, discussed the case with the resident Dr. Sanz and agree with the findings and care plan. Total Time Spent: Greater than 30 minutes (35) (Paty Thomas M.D.) Discharge Instructions Please refer to the electronic Patient Visit Report (Discharge Instructions) for additional information. (Jeyson Sanz M.D.) Additional Copies To RV. Mcmahon MD
== END 2017-09-20 11:00 | disposition hospice, home (50) | DRG 175 ==
LOC: C.EDB 21:13 → ENRESERV 09-16 00:55 → OBSVTOIN 09-16 01:30 → C.2E 09-16 01:30
PROVIDERS: ADMIT Internal Medicine; ATTEND Family Medicine
DX: I26.99 Other pulmonary embolism without acute cor pulmonale (principal); I82.220 Acute embolism and thrombosis of inferior vena cava; C74.90 Malignant neoplasm of unspecified part of unspecified adrenal gland; E46 Unspecified protein-calorie malnutrition; R14.0 Abdominal distension (gaseous); R60.1 Generalized edema; D50.9 Iron deficiency anemia, unspecified; E88.09 Other disorders of plasma-protein metabolism, not elsewhere classified; Z66 Do not resuscitate; Z51.81 Encounter for therapeutic drug level monitoring; K59.00 Constipation, unspecified; Z79.899 Other long term (current) drug therapy; Z79.891 Long term (current) use of opiate analgesic; Z85.528 Personal history of other malignant neoplasm of kidney; Z90.5 Acquired absence of kidney; Z92.21 Personal history of antineoplastic chemotherapy; Z80.3 Family history of malignant neoplasm of breast; Z83.3 Family history of diabetes mellitus